=== PATIENT | female | born 1945 | race Caucasian/White ===

== ENCOUNTER 2023-10-10 18:14 | Emergency (ER) | payer MEDICARE, SELFPAY ==
[2023-10-10] VITALS (9 sets, daily range): BP systolic 133–153; BP diastolic 65–79; PULSE 87–94; RESP 18–24; TEMP 36.7; O2SAT 92–97; BMI 26.5
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
[2023-10-10 18:50] LABS: Basophils Absolute Auto 0.03 K/uL (0.00-0.30); Basophils Percent Auto 0.4 % (0.0-3.0); Eosinophils Absolute Auto 0.01 K/uL (0.00-0.50); Eosinophils Percent Auto 0.1 % (0.0-7.0); Hematocrit 39.4 % (33.0-51.0); Immature Granulocytes Abs Auto 0.01 K/uL (0.00-0.30); Immature Granulocytes Pct Auto 0.1 %; Lymphocytes Percent Auto 6.3 % (20-44); Mean Corpuscular HGB Conc 33 gm/dL (32-36); Mean Corpuscular Hemoglobin 30 pg (26-34); Mean Corpuscular Volume 92 fL (80-100); Neutrophils Percent Auto 86.1 % (42.0-72.0); Platelet Count* 230 K/uL (140-440); RDW Coefficient of Variation % 13.1 % (11.5-15.5); Red Blood Count 4.28 m/uL (4.00-5.20); White Blood Count* 7.84 K/uL (4.50-11.00)
[2023-10-10 19:02] LABS: Slide Review Reflex No
--- OUTSIDE RECORDS SUMMARY | 2023-10-10 19:03 | XMS_ITS | Clinical Summary ---
Author Organization [facility] Address [place], [place] [address] Care Team Providers Care Stone Cutter Name Role Phone Devyn Holden MD Primary Care Provider Unavail able Family History Medical History Relation Name Comments Cancer-breast No Family History Social History Tobacco Use Types Packs/Day Years Used Date Smoking Tobacco: Never Assessed Sex and Gender Information Value Date Recorded Sex Assigned at Not on file Gender Identity Not on file Sexual Orientation Not on file Obstetrics History Plan of Treatment Not on file Insurance Payer Benefit Plan / Group Subscriber ID Effective Dates Phone Address Type MEDICARE PART B - HB USE ONLY MEDICARE PART B HB ONLY [id number] 2005-[place] t ATTN: CLAIMS [address] [place] [address] MEDICARE - PB USE ONLY MEDICARE PB ONLY [id number] 2005-Pres t ATTN: CLAIMS [address] [place] [address] BLUE CROSS BLUE CROSS FALSE PASS BLUE HB ONLY [id number] 2012-Present [address] [address] [place] [address] MEDICA MEDICA PASSPORT [id number] Effective fo r all dates [address] [address] [place] [address] Care Teams Stone Cutter Relationship Specialty Start Date End Date Devyn Holden MD PCP - General Family Practice 12/14/11
--- OUTSIDE RECORDS SUMMARY | 2023-10-10 19:03 | XMS_ITS | Clinical Summary ---
Author Organization [facility] Address [address] [place] [address] Care Team Providers Care Is/It Project Manager Name Role Phone Devyn Holden MD Primary Care Provider [phone] Source Comments You are receiving this document as you are listed as the primary care provider,follow-up provider, or the patient has been referred to you for consultation.This is in compliance with the Medicare and[facility] EHR Incentive Program,which states Providers who transition their patient to another setting of careor provider of care or refers their patient to another provider of care shouldprovide summary care record for each transition of care or referral. [employer] Allergies Active Allergy Reactions Criticality Noted Date Comments Sulfa Antibiotics 04/16/2017 Medications Medication Sig Dispensed Refills Start Date End Date Status aspirin 81 MG tablet Take 1 Tablet (81 mg) by mouth daily. Active rizatriptan (MAXALT-SUPERVISOR REINFORCED STEEL PLACING) 10 MG disintegrating tablet Take 1 Tablet (10 mg) by mouth as needed for Headache. at onset of migraine. May repeat in 2 hr if needed up to 30mg in 24 hr & MAX use 5 days/month Active omega-3 fatty acids (MAXEPA,FISHOIL) 1000 MG capsule Take 2 Capsules (2,000 mg) by mouth daily. Active GABAPENTIN OR Active Clobetasol Propionate (OLUX) 0.05 % foam User on affected areas of rash in the scalp once daily as needed 50 g 3 07/16/2020 Active diclofenac (VOLTAREN) 1 % gel Apply 2 g to skin 4 times daily as needed for Other (hand, knee, other joint pain). 100 g 3 07/16/2020 Active amLODIPine (NORVASC) 10 MG tablet Take 1 Tablet (10 mg) by mouth daily. 90 Tablet 3 10/15/2022 Active hydroxychloroquine (PLAQUENIL) 200 MG tabletIndications:cut aneous lupus Take 1 Tablet (200 mg) by mouth two times a day. 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 04/27/2017 History of total knee arthroplasty, right 2017 Raynaud's disease without gangrene 04/27/2017 Connective tissue disease 04/27/2017 Migraine 04/27/2017 Primary osteoarthritis of both hands 04/27/2017 Right hand pain 04/27/2017 Long-term use of hydroxychloroquine 04/27/2017 Immunizations Name Administration Dates Next Due Flu Vac (3+ yrs) 01/26/2013,01/01/2012, 1 Fluzone Qiv Multidose Vial 0 .25 (6-35 Mos) 02/06/2015 Influenza (Fluad) 01/20/2019 Influenza (Flucelvax), Prese rv Free QIV 03/01/2017 Influenza IIV4 (Quadrivalent ) 0.5mL ([id number]) 12/31/2016 Influenza IIV4 (Quadrivalent ) Fluad, 65+ Yrs 01/03/2021,01/28/2020 Influenza, Unspecified Formulation 01/11/2018,,02/06/2015 Moderna Monovalent 12+ 11/03/2021,2020,07/05/2020,2020 PPSV23 (Pneumovax) 03/20/2020 Zoster RZV (Shingrix) 05/26/2021,02/13/2021 Social History Tobacco Use Types Packs/Day Years Used Date Smoking Tobacco: Former Smokeless Tobacco: Never Alcohol Use Standard Drinks/Week Comments Yes 0 (1 standard drink = 0.6 oz pur e alcohol) Sex and Gender Information Value Date Recorded Sex Assigned at Not on file Gender Identity Not on file Sexual Orientation Not on file Last Filed Vital Signs Vital Sign Reading Time Taken Comments Blood Pressure 144/70 07/16/2020 11:28 AM CDT Pulse 73 07/16/2020 11:28 AM CDT Temperature 36.1 ??C (97 ??F) 07/16/2020 11:28 AM CDT Respiratory Rate - - Oxygen Saturation - - Inhaled Oxygen Concentration - - Weight 77.1 kg (170 lb) 07/16/2020 11:28 AM CDT Height - - Body Mass Index - - Plan of Treatment Upcoming Encounters Date Type Department Care Team (Late st Contact Info) Description 10/19/2023 1:45 PM CDT Appointment [facility] [address] [place], [place] [id number] Everardo Luis MD [facility] [place], [place] [id number] Health Maintenance Due Date Last Done Comments Medicare Annual Wellness Visit 1945 COVID-19 Vaccine ( season) 2022 01/28/2022, 11/03/2021, 02/13/2021, Additional history exists Influenza (Season Ended) 2023 022, 01/03/2021, 01/28/2020, Additional history exists DTaP/Tdap/Td (2 - Tdap) 04/09/2032 04/09/2022 Dexa Completed 09/18/2016 Hep C Screening (Preventive Services) Completed 04/27/2017 Zoster/Shingles Completed 05/26/2021, 02/13/2021 Pneumococcal 65+ Yrs Completed 04/09/2022, 03/20/20 20 HepA Aged Out No longer eligi ble based on patient's age to complete this topic HepB Aged Out No longer eligi ble based on patient's age to complete this topic Hib Aged Out No longer eligi ble based on patient's age to complete this topic IPV (Polio) Aged Out No longer eligi ble based on patient's age to complete this topic MCV4 Aged Out No longer eligi ble based on patient's age to complete this topic Procedures Procedure Name Priority Date/Time Associated Diagnosis Comments HEPATITIS C ANTIBODY, WITH REFLEX Routine 04/27/2017 11:44 AM LABEL OPERATOR Connective tissue disease (HRC) DXA BONE DENSITY SPINE/HIP/FOREARM Routine 09/18/2016 2:21 PM CDT from Last 3 Months or Most Recently Relevant to Health Maintenance Results * HCAB - Hepatitis C Virus Sunita with Reflex In-House (04/27/2017 11:44 AM LABEL OPERATOR) Hepatitis C Antibody Nonreactive Nonreactive PN SOFT 04/27/2017 11:4 4 AM LABEL OPERATOR 04/27/2017 4:22 PM LABEL OPERATOR Narrative PN SOFT - 04/27/2017 5:49 PM LABEL OPERATOR Performed at [facility], [facility] [place] [address] CLIA number [id number] Everardo Luis MD LAB[facility] [place] [address] from Last 3 Months or Most Recently Relevant to Health Maintenance Care Teams Is/It Project Manager Relationship Specialty [place] [address] [address] PCP - General Family Practice 11/27/21
--- OUTSIDE RECORDS SUMMARY | 2023-10-10 19:03 | XMS_ITS | Continuity of Care Document ---
Author Organization [facility] Address [address] [place] [address] Phone Care Team Providers Care Transportation Officer Name Role Phone Jono BLANCO, PhD, Chucho Unavailable Unavai lable Allergies, Adverse Reactions, Alerts Substance Reaction Status Criticality Sulfa (Sulfonamide Antibiotics) body swells Active No Information Medications Medication Instructions Dosage Effective Dates (start - stop) Status Comments ASPIR-LOW (unknown strength) Not Available - Active AMLODIPINE BESYLATE (unknown strength) Not Available - Active RIZATRIPTAN (unknown strength) Not Available - Active PLAQUENIL (unknown strength) Not Available - Active Procedures Procedure Date Office/Outpatient Visit,Carlota Hernández 2016 X-Ray Exam Lwr Spine, Min 4 Views Advance Directives Directive Yes / No Effective Date File Name No Information Encounters Encounter Description Practice Location Reason(s) For Visit Diagnoses Date Provider Providers Copied on Encounter [facility], [address], [place], [place], [id number], [place] tel:[phone] [facility] No Information Jono Rankin. [facility], [address], [place], [address], [place]. tel: [phone] Office/Outpat ient Visit,[facility], [address], [place], [place], [id number], [place] tel:[phone] [facility] Pain in leg Jono Rankin. [facility], [address], [place], [address], [place]. tel:[phone] Referring Provider: JOSE Weir [address], [address]. tel:[phone] Family History Family Member Type Diagnosis Age At Onset No Information Payers Payer name Insurance type Covered alliance party ID Sulma pearson(s) [facility] [id number] Medicare [facility] BL [id number] Social History Type Description Quantity Date Captured Comments Sex Female Smoking Status No Information Chief Complaint And Reason For Visit No Information Reason For Referral Reason For Referral No Information History Of Present Illness Encounter Date Complaint History Of Prese nt Illness No Information Functional Status Date Functional Assessmen t No Information Instructions Date Instruction Additional Infor mation Weight Management Education Rela prasad to Overweight Weight management: I nstructed to return to General Practitioner timeframe: 1 Month. Related to Overweight Assessments Type Assessment Date No Information Patient Care Teams Name Effective Dates (start - stop) Status Members No Information
--- OUTSIDE RECORDS SUMMARY | 2023-10-10 19:03 | XMS_ITS | Continuity of Care Document ---
Author Organization [facility] Address [address] [address] [place] [address] Phone Care Team Providers Care Residential Living Assistant Name Role Phone Saulo Carranza MD Unavailable Unavailable Allergies, Adverse Reactions, Alerts Substance Reaction Status Criticality Sulfa (Sulfonamide Antibiotics) swelling Active No Information Medications Medication Instructions Dosage Effective Dates (start - stop) Status Comments Plaquenil 200 mg Tab Take two tablets by mouth daily - Active Norvasc 10 mg Tab Take 1 tablet by mouth daily - Active Multiple Vitamin Essential Tab Use as directed - Active CALCIO LIZANDRO (unknown strength) Take 4 tablets by mouth daily Not Available - Active Maximum Energy Tab Use as directed - A ctive etodolac 400 mg Tab Take two tablets by mouth daily - Active OMEGA 3 (unknown strength) Use as directed Not Available - Active Procedures Procedure Date Colorectal Ca Scrn Not Hi Risk 09 Advance Directives Directive Yes / No Effective Date File Name No Information Encounters Encounter Description Practice Location Reason(s) For Visit Diagnoses Date Provider Providers Copied on Encounter [facility], [address] [address], [place], [id number], [place] tel:[phone] Evita [facility] Colon Cancer ScreeningDiverticul osis Of Colon [address] [facility], [place], [id number] , [place]. tel:[phone] Family History Family Member Type Diagnosis Age At Onset No Information Payers Payer name Insurance type Covered constitution party ID Authoriza tijosy(s) Medicare [facility] [id number] [facility] [id number] Social History Type Description Quantity Date Captured Comments Sex Female Smoking Status No Information Chief Complaint And Reason For Visit No Information Reason For Referral Reason For Referral No Information History Of Present Illness Encounter Date Complaint History Of Prese nt Illness No Information Functional Status Date Functional Assessmen t No Information Instructions Date Instruction Additional Infor mation No Information Assessments Type Assessment Date No Information Patient Care Teams Name Effective Dates (start - stop) Status Members No Information
--- OUTSIDE RECORDS SUMMARY | 2023-10-10 19:03 | XMS_ITS | Continuity of Care Document ---
Author Organization [facility] Address [address] [place] [address] Phone Care Team Providers Care Matcher Operator Name Role Phone Sondra Madden MD Unavailable Unavailable Allergies, Adverse Reactions, Alerts Substance Reaction Status Criticality Sulfa (Sulfonamide Antibiotics) Active No Information Medications Medication Instructions Dosage Effective Dates (start - stop) Status Comments Plaquenil 200 mg tablet take 1 (200MG) by oral route 2 times every day 200 MG - Active Norvasc 10 mg tablet take 1 tablet (10MG) by oral route every day - Active aspirin 81 mg Tab, Delayed Release take 1 tablet (81MG) by oral route every day 81 MG - Active Maxalt-INJECTION MOLDING MACHINE SETTER 10 mg Tab, Rapid Dissolve use as needed - Active Plaquenil 200 mg tablet take 1 (200MG) by oral route 2 times every day 200 MG - No Longer Active Norvasc 10 mg tablet take 1 tablet (10MG) by oral route every day - No Longer Active Procedures Procedure Date Office/Outpatient Visit, Est Routine Venipuncture Specimen Handling Complete Cbc WAuto Diff Wbc Rbc Sed Rate, Nonautomated Assay Of Creatinine CReactive Protein Office/Outpatient Visit, Est Routine Venipuncture Specimen Handling Complete Cbc WAuto Diff Wbc Rbc Sed Rate, Nonautomated Assay Of Creatinine CReactive Protein Office/Outpatient Visit, Est Routine Venipuncture Specimen Handling Complete Cbc WAuto Diff Wbc Rbc Sed Rate, Nonautomated Assay Of Creatinine CReactive Protein Office/Outpatient Visit, Est Routine Venipuncture Specimen Handling CReactive Protein Complete Cbc WAuto Diff Wbc Assay Of Creatinine Results Test Name Date and Time Measure Units Reference Range Abnormal Flag Status Comments Panel Description: ESR Final ESR 11:36:00 28 mm/hr 0-25 H Final Panel Description: CRP Final CRP 11:45:00 0.050 MG/DL 0.000-0.600 Final LOW=Actual Result is BELOW Linearity of Analyzer Panel Description: Creatinine Final Creatinine 11:45:00 0.7 mg/dL 0.5-1.3 Final GFR 11:45:00 88.4 mL/min/1. 73 m2 Final If patient is -Amer ican multiply result by 1.210 Panel Description: CBC Final WBC 11:46:00 4.0 K/uL 3.5-10.8 Final Lymphocyte% 11:46:00 30.2 % 15.1-43.0 Final Mid% 11:46:00 5.1 % 1.0-18.0 Final Gran% 16 11:46:00 64.7 % 45.0-76.0 Final Lymphocyte # 16 11:46:00 1.2 K/uL 0.9-5.2 Final Mid # 16 11:46:00 0.2 K/uL 0.1-2.0 Final Gran # 16 11:46:00 2.6 K/uL 1.4-19.0 Final RBC 11:46:00 4.30 M/uL 3.80-5.20 Final Hemoglobin Oct-27-20 16 11:46:00 13.8 g/dL 11.5-16.0 Final Hematocrit 16 11:46:00 39.7 % 36.0-49.0 Final MCV 11:46:00 92 fL 81-100 Final MCH 11:46:00 32 pg 27-35 Final MCHC 11:46:00 34.9 g/dL 32.5-37.5 Final RDW 11:46:00 13.9 % 11.5-15.4 Final MPV 11:46:00 6.7 fL 6.0-10.4 Final Platelet Count 11:46:00 257 K/uL 130-400 Final Panel Description: URINALYSIS REFLEX Final COLOR 16 04:25:00 YELLOW YELLOW N Final APPEARANCE 16 04:25:00 CLEAR CLEAR N Final SPECIFIC GRAVITY 04:25:00 1.004 1.001-1.035 N Final PH 04:25:00 6.5 5.0-8.0 N Final GLUCOSE 16 04:25:00 NEGATIVE NEGATIVE N Final BILIRUBIN 16 04:25:00 NEGATIVE NEGATIVE N Final KETONES 16 04:25:00 NEGATIVE NEGATIVE N Final OCCULT BLOOD 16 04:25:00 NEGATIVE NEGATIVE N Final PROTEIN 04:25:00 NEGATIVE NEGATIVE N Final NITRITE 04:25:00 NEGATIVE NEGATIVE N Final LEUKOCYTE ESTERASE 04:25:00 NEGATIVE NEGATIVE N Final Advance Directives Directive Yes / No Effective Date File Name No Information Encounters Encounter Description Practice Location Reason(s) For Visit Diagnoses Date Provider Providers Copied on Encounter Office/Outpa tient Visit, [facility] , [address], [place], [address], [place] tel:[phone] [facility] , SLE (chief complaint)Os teoarthritis (chief complaint)Dr beauchamp monitoring (chief complaint) Oth organ or system involv in systemic lupus erythematosu sPrimary generalized (osteo)arthr itisOther assisted (current) drug therapy Maryanne Amaro. [facility] [address], [place], [address], [place]. tel:[phone] Referring Provider: Sondra Beaver, [facility] [address], [place], [address]. tel:[phone] [facility] , [address], [place], [address], [place] tel:[phone] [facility] , No Information 6 Maryanne Amaro. [facility] [address], [place], [address], [place]. tel:[phone] Office/Outpa tient Visit, [facility] , [address], [place], [address], [place] tel:[phone] [facility] , SLE (chief complaint)Os teoarthritis (chief complaint)Dr beauchamp monitoring (chief complaint) Systemic lupus erythematosu sOsteoarthri tis, GeneralizedT herapeutic Drug Monitoring 5 Maryanne Amaro. [facility] [address], [place], [address], [place]. tel:[phone] Referring Provider: Sondra Beaver, [facility] [address], [place], [address]. tel:[phone] Office/Outpa tient Visit, [facility] , [address], [place], [address], [place] tel:[phone] [facility] , SLE (chief complaint)Os teoarthritis (chief complaint)Dr beauchamp monitoring (chief complaint)Tr igger finger (chief complaint) Systemic lupus erythematosu sOsteoarthri tis, GeneralizedT herapeutic Drug Monitoring 0 4 Maryanne Amaro. [facility] [address], [place], [address], [place]. tel:[phone] Referring Provider: Sondra Beaver, [facility] [address], [place], [address]. tel:[phone] Office/Outpa tient Visit, [facility] , [address], [place], [address], [place] tel:[phone] [facility] , SLE (chief complaint)Os teoarthritis (chief complaint)Mo nitor chronic high risk medications (chief complaint) Systemic lupus erythematosu sTrigger finger (acquired)Sy novial cyst of popliteal spaceTherape utic Drug Monitoring 3 Maryanne Amaro. [facility] [address], [place], [address], [place]. tel:[phone] Referring Provider: Sondra Beaver, [facility] [address], [place], [address]. tel:[phone] Family History Family Member Type Diagnosis Age At Onset No Information Payers Payer name Insurance type Covered democrat ID Authoriza tion(s) [facility] Medicare Advantage/[employer] BL [id number] Social History Type Description Quantity Date Captured Comments Alcohol Use Details wine 1 glass daily Caffeine Use Details coffee 4 cups per day Tobacco Use Status Ex-cigarette smoker Smoking Status Former smoker Zulma is and lives with her in [place]. She works at a [employer]. She quit smoking many years ago. She drinks 1-2 alcoholic beverages per month. Smoking Tobacco Use Details Cigarette: No Details Available Cigarette: No Details Available Sex Female Vital Signs Date / Time: Height Weight BMI Pulse Rate Blood Pressure Temperature Respiratory Rate Body Surface Area Head Circumference Head Circ. Percentile Wt./Tao. Percentile BMI percentile Pulse Ox Inhaled Ox 10:24 AM 63.25 in 64.864 kg (143.00 lbs) 25.1 3 kg/m eter (2) 122/72 mm[Hg] 97.20 F Chief Complaint And Reason For Visit From encounter dated '02/07/2016 10:15'. SLE (chief complaint) Osteoarthritis (chief complaint) Drug monitoring (chief complaint) Reason For Referral Reason For Referral No Information History Of Present Illness Encounter Date Complaint History Of Prese nt Illness SLE Osteoarthritis Drug monitoring SLE Osteoarthritis Drug monitoring Functional Status Date Functional Assessmen t No Information Instructions Date Instruction Additional Infor mation No Information Assessments Type Assessment Date assessment Oth organ or system involv in sy [facility] lupus erythematosus assessment Primary generalized (osteo)arthr itis brenda Maya is tolerating her medications well. She denies any side effects from either the hydroxychloroquine or amlodipine. She will continue to be watchful for anything new that she feels may be medication related. She is up to date with eye exams to monitor for toxicity from the hydroxychloroquine. 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 She has not had any new rashes, pleurisy, inflammatory synovitis, edema, fevers, or other systemic symptoms that would suggest her disease is more active. Her exam today looks excellent. I recommended no changes in her current regimen of hydroxychloroquine. She uses amlodipine for her raynauds and will continue this as well. Labs will be drawn today for disease monitoring purposes to include a CBC with differential and platelets, creatinine, urinalysis, ESR, and CRP. brenda Maya has generalize d osteoarthritis that has involved her hands, knees, hips, and back. Her weight loss has helped significantly. She remains active which is also important. She knows that we do not have any disease modifying drugs for her hands. She seems to get along reasonably well. I have not recommended any further treatment today. Patient Care Teams Name Effective Dates (start - stop) Status Members No Information
--- OUTSIDE RECORDS SUMMARY | 2023-10-10 19:03 | XMS_ITS | Continuity of Care Document ---
Author Organization [facility] Address [address] [place] [address] Phone Care Team Providers Care Spout Worker Name Role Phone Aaron BLANCO MD, Mil Unavailable Unavailable Advance Directives Directive Yes / No Effective Date File Name No Information Encounters Encounter Description Practice Location Reason(s) For Visit Diagnoses Date Provider Providers Copied on Encounter [facility], [address], [place], [place], [id number], [place] tel:[phone] No Information 0 Aaron Jaeger. [address], [place], [address], [place]. tel:[phone] Referring Provider: Mil Dempsey, [address] [place], [place], [facility]. tel:[phone] Family History Family Member Type Diagnosis Age At Onset No Information Payers Payer name Insurance type Covered libertarian ID Authoriza tion(s) [employer] CI [id number] Social History Type Description Quantity Date Captured [...]
[2023-10-10 19:07] LABS: Chloride* 103 mmol/L (96-114); Potassium* 3.9 mmol/L (3.6-5.1); Sodium* 138 mmol/L (135-149)
[2023-10-10 19:10] LABS: Anion Gap 8 mEq/L (7-15); Blood Urea Nitrogen* 14 mg/dL (7-30); Carbon Dioxide* 27 mmol/L (20-32); Creatinine* 0.9 mg/dL (0.5-1.5); Est. Creatinine Clearance* 37.85; Estimated Glomerular Filt Rate 66 ml/min
[2023-10-10 19:11] LABS: Calcium* 9.1 mg/dL (8.4-10.6); Glucose* 112 mg/dL (60-115)
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
[2023-10-10] MEDS: ONDANSETRON 2 MG/ML inj 4 MG IVP (20:21)
[2023-10-10] MEDS: fentaNYL 100 MCG/2 ML inj 25 MCG IVP (20:22)
--- NOTE | 2023-10-10 21:08 | ED.NURSE ---
Pt did take Pt necklace, earrings, and bracelet.
--- NOTE | 2023-10-10 21:18 | ED.NURSE ---
Report given to [facility].
--- NOTE | 2023-10-10 21:19 | ED.NURSE ---
No need for second iv per Dr. Gotti. Pt did use bedside commode for urine output, tolerates well. O2/nc per Dr. Gotti for RA sats 91-95%.
== END 2023-10-10 21:20 | disposition short-term general hospital (02) ==
PROVIDERS: Emergency Provider Family Medicine; PCP Family Medicine
DX: M54.2 Cervicalgia (principal); T71.9XXA Asphyxiation due to unspecified cause, initial encounter; V86.59XA Driver of other special all-terrain or other off-road motor vehicle injured in nontraffic accident, initial encounter
CPT/HCPCS: 36415; 70491; 71045; 72125; 73560; 73610; 80048; 82565; 85025; 94761; 96374; 96375; 99285; J2405; J3010; Q9967

== ENCOUNTER 2023-10-10 20:55 | Outpatient (CLI) | payer MEDICARE, SELFPAY ==
--- OUTSIDE RECORDS SUMMARY | 2023-10-16 18:30 | XMS_ITS | Encounter Summary ---
Author Organization [facility] Address [address] [place] [address] Phone Care Team Providers Care Cd Technician Name Role Phone Unavailable Primary Care Provider Unavailabl e Encounter Details Date Type Department Care Team (Late st Contact Info) Description 10/11/2023 Orders Only Unspecified Department [place] Unknown, Provider Social History Tobacco Use Types Packs/Day Years Used Date Smoking Tobacco: Never Assessed Humiliation, Afraid, Rape, and Kick questionnair e Answer Date Recorded Within the last year, have y ou been afraid of your partner or ex-partner? No 10/11/2023 Within the last year, have y ou been humiliated or emotionally abused in other ways by your partner or ex-partner? No Within the last year, have y ou been kicked, hit, slapped, or otherwise physically hurt by your partner or ex-partner? No 10/11/2023 Within the last year, have y ou been raped or forced to have any kind of sexual activity by your partner or ex-partner? No 10/11/2023 Overall Financial Resource Strain (CARDIA) Answe r Date Recorded How hard is it for you to pa y for the very basics like food, housing, medical care, and heating? Not hard at all 10/11/2023 Hunger Vital Sign Answer Date Recorded Within the past 12 months, y ou worried that your food would run out before you got the money to buy more. Never true 10/11/19 24 Within the past 12 months, t he food you bought just didn't last and you didn't have money to get more. Never true 10/11/2023 PRAPARE - Transportation Answer Date Re corded In the past 12 months, has l ack of transportation kept you from medical appointments or from getting medications? No 09/13 In the past 12 months, has l ack of transportation kept you from meetings, work, or from getting things needed for daily living? No 10/11/2023 Housing Stability Answer Date Recorded What is your housing situation today? 3 - I have housing 10/11/2023 Sex and Gender Information Value Date Recorded Sex Assigned at Not on file Gender Identity Not on file Sexual Orientation Not on file documented as of this encounter Plan of Treatment Not on file documented as of this encounter Procedures Procedure Name Priority Date/Time Associated Diagnosis Comments TELEMETRY STRIPS 10/11/2023 8:58 PM CDT documented in this encounter Results * TELEMETRY STRIPS (10/11/2023 8:58 PM CDT) Narrative 10/11/2023 8:58 PM CDT Ordered by an unspecified provider. Provider Unknown RAD ECHO documented in this encounter Visit Diagnoses Not on filedocumented in this encounter
--- OUTSIDE RECORDS SUMMARY | 2023-10-16 18:30 | XMS_ITS | Clinical Summary ---
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 discussed
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
--- OUTSIDE RECORDS SUMMARY | 2023-10-16 18:30 | XMS_ITS | Encounter Summary ---
Author Organization [facility] Address [address] [place] [id number] Phone Care Team Providers Care Security Systems Technician Name Role Phone Unavailable Primary Care Provider Unavailabl e Encounter Details Date Type Department Care Team (Latest Contact Info) Description 10/10/2023 Travel Social History Tobacco Use Types Packs/Day Years [...] on file documented as of this encounter Visit Diagnoses Not on filedocumented in this encounter
--- OUTSIDE RECORDS SUMMARY | 2023-10-16 18:30 | XMS_ITS | Encounter Summary ---
Author Organization [facility] Address [address] [place] [phone] Phone Care Team Providers Care Occupational Health Technician Name Role Phone Unavailable Primary Care Provider Unavailabl e Reason for Referral * Consult/Test/Treat (Routine) - New Request Specialty Diagnoses / Procedures Referred By Contac t Referred To Contact Speech Pathology / NEUROLOGY Diagnoses Blunt trauma of neck, subsequent encounter Pneumomediastinum (CMS/HHS) Hoang Yancey Jr., MD [address] [place] [id number] Referral ID Status Reason Start Date Expiration Date V isits Requested Visits Authorized [id number] New Request 10/13/2023 10/11/2024 1 1 Encounter Details Date Type Department Care Team (Late st Contact Info) Description 10/12/2023 Orders Only [facility] [address] [address] Mariajose Camarillo MD [address] [place] [id number] Blunt trauma of neck, subsequent encounter (Primary Dx); Pneumomediastinum (CMS/HHS) Social History Tobacco Use Types Packs/Day Years [...] as of this encounter Plan of Treatment Scheduled Orders Name Type Priority Associated Diagnoses Orde r Schedule XR MODIFIED BARIUM SWALLOW Imaging Routine Blunt trauma of neck, subsequent encounter Pneumomediastinum ([facility]) Expected: 10/13/2023, Expires: 12/12/2024 Scheduled Referrals Name Type Priority Associated Diagnoses Orde r Schedule REFERRAL TO SPEECH LANGUAGE PATHOLOGY Referral Routine Blunt trauma of neck, subsequent encounter Pneumomediastinum ([facility]) Ordered: 10/13/2023 documented as of this encounter Visit Diagnoses Diagnosis Blunt trauma of neck, subsequent encounter- Primary Pneumomediastinum ([facility]) Interstitial emphysema documented in this encounter
--- OUTSIDE RECORDS SUMMARY | 2023-10-16 18:30 | XMS_ITS | Encounter Summary ---
Author Organization [facility] Address [address] [place] [address] Phone Care Team Providers Care Sewing Department Supervisor Name Role Phone Unavailable Primary Care Provider Unavailabl e Encounter Details Date Type Department Care Team (Late st Contact Info) Description 10/12/2023 Orders Only Unspecified Department [place] Unknown, [...] Priority Date/Time Associated Diagnosis Comments TELEMETRY STRIPS 10/12/2023 11:1 3 AM CDT documented in this encounter Results * TELEMETRY STRIPS (10/12/2023 11:13 AM CDT) Narrative 10/12/2023 11:13 AM CDT Ordered by an unspecified provider. Provider Unknown RAD ECHO documented in this encounter Visit Diagnoses Not on filedocumented in this encounter
--- OUTSIDE RECORDS SUMMARY | 2023-10-16 18:30 | XMS_ITS | Encounter Summary ---
Author Organization [facility] Address [address] [place] [address] Phone Care Team Providers Care Field Irrigation Worker Name Role Phone Unavailable Primary Care Provider Unavailabl e Encounter Details Date Type Department Care Team (Late st Contact Info) Description 10/13/2023 Orders Only Unspecified Department [place] Unknown, [...] Priority Date/Time Associated Diagnosis Comments TELEMETRY STRIPS 10/13/2023 2:47 AM CDT documented in this encounter Results * TELEMETRY STRIPS (10/13/2023 2:47 AM CDT) Narrative 10/13/2023 2:47 AM CDT Ordered by an unspecified provider. Provider Unknown RAD ECHO documented in this encounter Visit Diagnoses Not on filedocumented in this encounter
--- OUTSIDE RECORDS SUMMARY | 2023-10-16 18:30 | XMS_ITS | Encounter Summary ---
Author Organization [facility] Address [address] [place] [address] Phone Care Team Providers Care Crop Farm Workers Name Role Phone Unavailable Primary Care Provider [...] Date/Time Associated Diagnosis Comments TELEMETRY STRIPS 10/12/2023 9:44 PM CDT documented in this encounter Results * TELEMETRY STRIPS (10/12/2023 9:44 PM CDT) Narrative 10/12/2023 9:44 PM CDT Ordered by an unspecified provider. Provider Unknown RAD ECHO documented in this encounter Visit Diagnoses Not on filedocumented in this encounter
--- OUTSIDE RECORDS SUMMARY | 2023-10-16 18:30 | XMS_ITS | Encounter Summary ---
Author Organization [facility] Address [address] [place] [address] Phone Care Team Providers Care Fire Fighter [employer] Name Role Phone Unavailable Primary Care Provider Unavailabl e Encounter Details Date Type Department Care Team (Late st Contact Info) Description 10/14/2023 [facility] [phone] Aramis Vanessa, DO [address] [address] Social History Tobacco Use Types Packs/Day Years [...]
--- OUTSIDE RECORDS SUMMARY | 2023-10-16 18:30 | XMS_ITS | Encounter Summary ---
Author Organization [facility] Address [address] [place] [address] Phone Care Team Providers Care Couples Therapist Name Role Phone Unavailable Primary Care Provider [...] Date/Time Associated Diagnosis Comments TELEMETRY STRIPS 10/12/2023 3:47 AM CDT documented in this encounter Results * TELEMETRY STRIPS (10/12/2023 3:47 AM CDT) Narrative 10/12/2023 3:47 AM CDT Ordered by an unspecified provider. Provider Unknown RAD ECHO documented in this encounter Visit Diagnoses Not on filedocumented in this encounter
--- OUTSIDE RECORDS SUMMARY | 2023-10-16 18:30 | XMS_ITS | Encounter Summary ---
Author Organization [facility] Address [address] [place] [address] Phone Care Team Providers Care Paint Pourer Name Role Phone Unavailable Primary Care Provider Unavailabl e Encounter Details Date Type Department Care Team (Late st Contact Info) Description 10/12/2023 Orders Only [facility] Film Room [facility] Radiology Department PEGGY [address] [id number] Provider, [place] [address] Referral of patient (Primary Dx) Social History Tobacco Use Types Packs/Day Years [...] on file documented as of this encounter Results * XR CHEST OUTSIDE FILMS (10/10/2023 8:17 PM CDT) Narrative User, [id number] - 10/12/2023 6:28 AM CDT Outside Film Only Outside Provider RAD OUTSIDE FILMS * XR LOWER EXTREMITY OUTSIDE FILMS (10/10/2023 7:38 PM CDT) Narrative User, [id number] - 10/12/2023 6:28 AM CDT Outside Film Only Outside Provider RAD OUTSIDE FILMS * XR LOWER EXTREMITY OUTSIDE FILMS (10/10/2023 7:33 PM CDT) Narrative User, [id number] - 10/12/2023 6:27 AM CDT Outside Film Only Outside Provider RAD OUTSIDE FILMS * CT SPINE OUTSIDE FILMS (10/10/2023 7:10 PM CDT) Narrative User, [id number] - 10/12/2023 6:29 AM CDT Outside Film Only Outside Provider RAD OUTSIDE FILMS * CT SPINE OUTSIDE FILMS (10/10/2023 7:10 PM CDT) Narrative User, [id number] - 10/12/2023 6:29 AM CDT Outside Film Only Outside Provider RAD OUTSIDE FILMS documented in this encounter Visit Diagnoses Diagnosis Referral of patient- Primary Referral of patient without examination or treatment documented in this encounter
--- OUTSIDE RECORDS SUMMARY | 2023-10-16 18:31 | XMS_ITS | Clinical Summary ---
Author Organization [facility] Address [place], [place] [address] Care Team Providers Care Freelance Displayer Name Role Phone Devyn Holden MD Primary [...] History Plan of Treatment Not on file Care Teams Freelance Displayer Relationship Specialty Start Date End Date Devyn Holden MD PCP - General Family Practice 12/14/11
--- OUTSIDE RECORDS SUMMARY | 2023-10-16 18:31 | XMS_ITS | Clinical Summary ---
Author Organization [facility] Address [address], [place] [address] Care Team Providers Care Report Clerk Name Role Phone Devyn Holden MD Primary Care Provider [phone] Source Comments You are receiving this document as you are listed as the primary care provider,follow-up provider, or the patient has been referred to you for consultation.This is in compliance with the Medicare and[facility] EHR Incentive Program,which states Providers who transition their patient to another setting of careor provider of care or refers their patient to another provider of care shouldprovide summary care record for each transition of care or referral. Evolver Allergies Active Allergy Reactions Criticality Noted Date Comments Sulfa Antibiotics 04/16/2017 Medications Medication Sig Dispensed Refills Start Date End Date Status aspirin 81 MG tablet Take 1 Tablet (81 mg) by mouth daily. Active rizatriptan (MAXALT-LD TEACHER) 10 MG disintegrating tablet Take 1 Tablet [...] QIV 03/01/2017 Influenza IIV4 (Quadrivalent ) 0.5mL (54982) 12/31/2016 Influenza IIV4 (Quadrivalent ) Fluad, 65+ [...] Info) Description 10/19/2023 1:45 PM CDT Appointment [facility] [address] [place], [place] [id number] Everardo Luis MD [facility] [place], [place] [id number] Health Maintenance Due Date Last Done Comments [...] ANTIBODY, WITH REFLEX Routine 04/27/2017 11:44 AM [facility] Connective tissue disease (HRC) DXA BONE DENSITY SPINE/HIP/FOREARM Routine 09/18/2016 2:21 PM CDT from Last 3 Months or Most Recently Relevant to Health Maintenance Results * HCAB - Hepatitis C Virus Sunita with Reflex In-House (04/27/2017 11:44 AM [facility]) Hepatitis C Antibody Nonreactive Nonreactive PN SOFT 04/27/2017 11:4 4 AM [facility] 04/27/2017 4:22 PM [facility] Narrative PN SOFT - 04/27/2017 5:49 PM [facility] Performed at [facility] [place] [address] CLIA number [id number] Everardo Luis MD [facility] [address] [place] [address] from Last 3 Months or Most Recently Relevant to Health Maintenance Care Teams Report Clerk Relationship Specialty [place] [address] [id number] PCP - General Family Practice 11/27/21
--- OUTSIDE RECORDS SUMMARY | 2023-10-16 18:31 | XMS_ITS | Encounter Summary ---
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 14.5 % [facility] Plt 183 150 - 400 k/cmm [facility] MPV 10.4 6.5 - 12.5 fL [facility] Blood 10/14/2023 7:13 AM CDT 10/14/2023 7:33 AM CDT Martin Moura MD LABORATORY Performing Organization Address [facility] Co de Phone Number [facility] [address] [address] * (ABNORMAL) PANEL BASIC METABOLIC (BMP) (10/14/2023 7:13 AM CDT) CO2 24 22 - 30 mmol/L [facility] Glucose 117(H) 70 - 100 mg/dL [facility] BUN 8 8 - 23 mg/dL [facility] Creatinine 0.55 0.50 - 1.00 mg/dL [facility] Calcium 8.9 8.8 - 10.2 mg/dL [facility] Sodium 141 135 - 148 mmol/L [facility] Potassium 3.6 3.5 - 5.3 mmol/L [facility] Chloride 106 92 - 108 mmol/L [facility] AnGap 11 8 - 16 mmol/L [facility] eGFR (2020 CKD-EPI) 95 >=60 ml/min/1.7 3m2 [facility] Comment: The estimated glomerular filtration rate (eGFR) was calculated using the CKD-EPI 2020 creatinine equation, which does not include race as a factor. This equation is validated in individuals 18 years of age and older, and eGFR is normalized to a body surface area of 1.73m^2. Blood 10/14/2023 7:13 AM CDT 10/14/2023 7:33 AM CDT Martin Moura MD LABORATORY [facility] [address] [address] * PHOSPHORUS (10/14/2023 7:11 AM CDT) Phosphorus 3.6 2.5 - 4.5 mg/dL [facility] Blood 10/14/2023 7:11 AM CDT 10/14/2023 12:48 PM CDT Martin Moura MD LABORATORY Performing Organization Address City/[facility] Co de Phone Number [facility] [address] [address] * (ABNORMAL) POC GLUCOSE (10/14/2023 6:05 AM CDT) POC Glucose 112(H) 70 - 100 mg/dL [facility] Blood 10/14/2023 6:05 AM CDT Gautam Cook MD LABORATORY [facility] [address] [place] [address], * (ABNORMAL) POC GLUCOSE (10/14/2023 12:06 AM CDT) POC Glucose 136(H) 70 - 100 mg/dL [facility] Blood 10/14/2023 12:0 6 AM CDT Gautam Cook MD LABORATORY [facility] [address] [place] [address], * (ABNORMAL) POC GLUCOSE (10/13/2023 11:56 AM CDT) POC Glucose 120(H) 70 - 100 mg/dL [facility] Blood 10/13/2023 11:5 6 AM CDT Gautam Cook MD LABORATORY Performing Organization Address [facility] Co de Phone Number [facility] [place] [address], [place] * (ABNORMAL) PHOSPHORUS (10/13/2023 6:39 AM CDT) Phosphorus 2.2(L) 2.5 - 4.5 mg/dL [facility] Blood 10/13/2023 6:39 AM CDT 10/13/2023 6:55 AM CDT Vasu Argueta APRN, CNP LABORATORY Performing Organization Address City/[facility]/ZIP Co de Phone Number [facility] [address] [address] * MAGNESIUM (10/13/2023 6:39 AM CDT) Magnesium 1.9 1.6 - 2.4 mg/dL [facility] Blood 10/13/2023 6:39 AM CDT 10/13/2023 6:55 AM CDT Vasu Argueta APRN, CNP LABORATORY Performing Organization Address City/[facility]/ZIP Co de Phone Number [facility] [address] [address] * (ABNORMAL) PANEL BASIC METABOLIC (BMP) (10/13/2023 6:39 AM CDT) Sodium 143 135 - 148 mmol/L [facility] Potassium 3.2(L) 3.5 - 5.3 mmol/L [facility] Chloride 107 92 - 108 mmol/L [facility] CO2 25 22 - 30 mmol/L [facility] AnGap 11 8 - 16 mmol/L [facility] Glucose 110(H) 70 - 100 mg/dL [facility] BUN 12 8 - 23 mg/dL [facility] Creatinine 0.51 0.50 - 1.00 mg/dL [facility] Calcium 8.6(L) 8.8 - 10.2 mg/dL [facility] eGFR (2020 CKD-EPI) 97 >=60 ml/min/1.7 3m2 [facility] Comment: The estimated glomerular filtration rate (eGFR) was calculated using the CKD-EPI 2020 creatinine equation, which does not include race as a factor. This equation is validated in individuals 18 years of age and older, and eGFR is normalized to a body surface area of 1.73m^2. Blood 10/13/2023 6:39 AM CDT 10/13/2023 6:55 AM CDT Vasu Argueta APRN, CNP LABORATORY [facility] [address] [address] * (ABNORMAL) CBC WITH PLATELET (10/13/2023 6:39 AM CDT) WBC 4.32 4.00 - 10.00 k/cmm [facility] RBC 3.64(L) 3.90 - 5.20 m/cmm [facility] Hgb 10.9(L) 11.5 - 15.7 g/dL [facility] Hematocrit 33.4(L) 34.0 - 45.0 % [facility] MCV 91.8 80.0 - 100.0 fL [facility] MCH 29.9 25.0 - 32.0 pg [facility] MCHC 32.6 31.0 - 36.0 g/dL [facility] RDW 13.2 11.5 - 14.5 % [facility] Plt 164 150 - 400 k/cmm [facility] MPV 10.5 6.5 - 12.5 fL [facility] Blood 10/13/2023 6:39 AM CDT 10/13/2023 6:55 AM CDT Vasu Argueta APRN, CNP LABORATORY Performing Organization Address City/[facility]/ZIP Co de Phone Number [facility] [place] [phone] * POC GLUCOSE (10/12/2023 5:56 PM CDT) POC Glucose 94 70 - 100 mg/dL [facility] Blood 10/12/2023 5:56 PM CDT Gautam Cook MD LABORATORY Performing Organization Address City/[facility]/ZIP Co de Phone Number [facility] [place] [phone], [place] * POC GLUCOSE (10/12/2023 12:08 PM CDT) POC Glucose 76 70 - 100 mg/dL [facility] Blood 10/12/2023 12:0 8 PM CDT Gautam Cook MD LABORATORY Performing Organization Address City/[facility]/ZIP Co de Phone Number [facility] [place] [phone], [place] * ICU PHOSPHORUS (10/12/2023 6:25 AM CDT) Phosphorus 2.9 2.5 - 4.5 mg/dL [facility] Blood 10/12/2023 6:25 AM CDT 10/12/2023 6:33 AM CDT Lucian Matthews MD LABORATORY [facility] [address] [address] * ICU MAGNESIUM (10/12/2023 6:25 AM CDT) [facility] Magnesium 2.0 1.6 - 2.4 mg/dL [facility] Blood 10/12/2023 6:25 AM CDT 10/12/2023 6:33 AM CDT Lucian Matthews MD LABORATORY Performing Organization Address City/[facility]/ZIP Co de Phone Number [facility] [address] [address] * (ABNORMAL) ICU PANEL BASIC METABOLIC (BMP) (10/12/2023 6:25 AM CDT) [facility] CO2 22 22 - 30 mmol/L [facility] Glucose 88 70 - 100 mg/dL [facility] BUN 14 8 - 23 mg/dL [facility] Creatinine 0.62 0.50 - 1.00 mg/dL [facility] Calcium 8.4(L) 8.8 - 10.2 mg/dL [facility] Sodium 140 135 - 148 mmol/L [facility] Potassium 3.5 3.5 - 5.3 mmol/L [facility] Chloride 105 92 - 108 mmol/L [facility] eGFR (2020 CKD-EPI) 92 >=60 ml/min/1.7 3m2 [facility] Comment: The estimated glomerular filtration rate (eGFR) was calculated using the CKD-EPI 2020 creatinine equation, which does not include race as a factor. This equation is validated in individuals 18 years of age and older, and eGFR is normalized to a body surface area of 1.73m^2. AnGap 13 8 - 16 mmol/L [facility] Blood 10/12/2023 6:25 AM CDT 10/12/2023 6:33 AM CDT Lucian Matthews MD LABORATORY [facility] [address] [address] * (ABNORMAL) ICU CBC WITH PLATELET (10/12/2023 6:25 AM CDT) [facility] WBC 6.19 4.00 - 10.00 k/cmm [facility] RBC 3.64(L) 3.90 - 5.20 m/cmm [facility] Hgb 11.4(L) 11.5 - 15.7 g/dL [facility] Hematocrit 33.7(L) 34.0 - 45.0 % [facility] MCV 92.6 80.0 - 100.0 fL [facility] MCH 31.3 25.0 - 32.0 pg [facility] MCHC 33.8 31.0 - 36.0 g/dL [facility] RDW 13.2 11.5 - 14.5 % [facility] Plt 170 150 - 400 k/cmm [facility] MPV 10.1 6.5 - 12.5 fL [facility] Blood 10/12/2023 6:25 AM CDT 10/12/2023 6:34 AM CDT Lucian Matthews MD LABORATORY Performing Organization Address [facility] Co de Phone Number [facility] [place] [address] * POC GLUCOSE (10/12/2023 6:18 AM CDT) POC Glucose 84 70 - 100 mg/dL [facility] Blood 10/12/2023 6:18 AM CDT Gautam Cook MD LABORATORY Performing Organization Address City/[facility] Co de Phone Number [facility] [address] [place], [place] [phone], [place] * POC GLUCOSE (10/12/2023 1:11 AM CDT) POC Glucose 86 70 - 100 mg/dL [facility] Blood 10/12/2023 1:11 AM CDT Gautam Cook MD LABORATORY Performing Organization Address City[facility] Co de Phone Number [facility] [address] [place], [place] [phone], [place] * XR ABDOMEN 1 VIEW* (10/11/2023 6:51 PM CDT) Anatomical Region Laterality Modality Abdomen Computed Radiogr aphy 10/11/2023 7:00 PM CDT Impressions 10/11/2023 7:01 PM CDT IMPRESSION: Feeding tube tip projects over the distal stomach. Reading Radiologist: Vasu Green Narrative 10/11/2023 7:01 PM CDT Indication: Feeding Tube placement check ?? Comparison: CT chest 10/11/2023 FINDINGS: Feeding tube tip projects over the distal stomach. Moderate stool burden. No bowel distention to suggest obstruction. 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 Cholelithiasis. Procedure Note Vasu Green MD - 10/11/2023 Indication: Feeding Tube placement check Comparison: CT chest 10/11/2023 FINDINGS: Feeding tube tip projects over the distal stomach. Moderatestool burden. No bowel distention to suggest obstruction. Multileveldegenerative disc disease of the visualized spine. Cholelithiasis. IMPRESSION IMPRESSION: Feeding tube tip projects over the distal stomach. Reading Radiologist: Vasu Green Nely Sandoval APRN, SUPERVISOR PARTICLEBOARD RAD XRAY * POC GLUCOSE (10/11/2023 5:29 PM CDT) POC Glucose 79 70 - 100 mg/dL [facility] Blood 10/11/2023 5:29 PM CDT Gautam Cook MD LABORATORY [facility] [address] [place] [address], [place] * POC GLUCOSE (10/11/2023 11:31 AM CDT) POC Glucose 93 70 - 100 mg/dL [facility] Blood 10/11/2023 11:3 1 AM CDT Gautam Cook MD LABORATORY [facility] [address] [place] [address], [place] * XR ANKLE RIGHT 3 V AP/OBL/LAT* [...] evaluation. Reading Radiologist: Vasu Green Nely Sandoval CARD FOLDER, SUPERVISOR PARTICLEBOARD RAD XRAY * XR KNEE LEFT 3 VIEWS* (10/11/2023 9:36 AM CDT) Anatomical Region Laterality Modality Lower Extremity Computed Radiogr aphy 10/11/2023 9:44 AM CDT Impressions 10/11/2023 9:45 AM CDT IMPRESSION: 1. No acute fracture is identified. 2. Osteoarthritis. Reading Radiologist: Vasu Green Narrative 10/11/2023 9:45 AM CDT Indication: s/p USP. knee pain with ROM ?? Comparison: None FINDINGS: No acute fracture is identified. 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 Small knee joint effusion. Prominent bone spur along the superior aspect of the patella, which may be due to remote trauma. Procedure Note Vasu Green MD - 10/11/2023 Indication: s/p USP. knee pain with ROM Comparison: None FINDINGS: No acute fracture is identified. Tricompartmentalosteoarthritis, most pronounced in the medial compartment where there ismoderate osteoarthritis. Small knee joint effusion. Prominent bone spuralong the superior aspect of the patella, which may be due to remotetrauma. IMPRESSION IMPRESSION: 1. No acute fracture is identified. 2. Osteoarthritis. Reading Radiologist: Vasu Green Nely Sandoval APRN, SUPERVISOR PARTICLEBOARD RAD XRAY * CT CHEST NO IV [...] Reading Resident: Zurdo Monsivais Nely Sandoval APRN, SUPERVISOR PARTICLEBOARD RAD CT B [place] * (ABNORMAL) POC GLUCOSE (10/11/2023 5:42 AM CDT) POC Glucose 113(H) 70 - 100 mg/dL [facility] Blood 10/11/2023 5:42 AM CDT Gautam Cook MD LABORATORY [facility] [address] [place] [address], * (ABNORMAL) ICU PANEL BASIC METABOLIC (BMP) (10/11/2023 5:20 AM CDT) Pathologist [facility] Sodium 139 135 - 148 mmol/L [facility] Potassium 3.7 3.5 - 5.3 mmol/L [facility] Chloride 104 92 - 108 mmol/L [facility] CO2 23 22 - 30 mmol/L [facility] AnGap 12 8 - 16 mmol/L [facility] Glucose 118(H) 70 - 100 mg/dL [facility] BUN 12 8 - 23 mg/dL [facility] Creatinine 0.81 0.50 - 1.00 mg/dL [facility] Calcium 8.4(L) 8.8 - 10.2 mg/dL [facility] eGFR (2020 CKD-EPI) 75 >=60 ml/min/1.7 3m2 [facility] Comment: The estimated glomerular filtration rate (eGFR) was calculated using the CKD-EPI 2020 creatinine equation, which does not include race as a factor. This equation is validated in individuals 18 years of age and older, and eGFR is normalized to a body surface area of 1.73m^2. Blood 10/11/2023 5:20 AM CDT 10/11/2023 5:36 AM CDT Lucian Matthews MD LABORATORY Performing Organization Address City/[facility]/ZIP Co de Phone Number [facility] [address] [address] * (ABNORMAL) ICU CBC WITH PLATELET (10/11/2023 5:20 AM CDT) WBC 4.56 4.00 - 10.00 k/cmm [facility] RBC 3.71(L) 3.90 - 5.20 m/cmm [facility] Hgb 11.7 11.5 - 15.7 g/dL [facility] Hematocrit 34.8 34.0 - 45.0 % [facility] MCV 93.8 80.0 - 100.0 fL [facility] MCH 31.5 25.0 - 32.0 pg [facility] MCHC 33.6 31.0 - 36.0 g/dL [facility] RDW 13.4 11.5 - 14.5 % [facility] Plt 201 150 - 400 k/cmm [facility] MPV 10.3 6.5 - 12.5 fL [facility] Blood 10/11/2023 5:20 AM CDT 10/11/2023 5:36 AM CDT Lucian Matthews MD LABORATORY [facility] [address] [address] * MRSA SURVEILLANCE SCREEN (10/11/2023 4:05 AM CDT) Final Report No MRSA isolated. [facility] Swab NASAL STRUCTURE / Unknown 10/11/2023 4:05 AM CDT 10/11/2023 7:23 AM CDT Gautam Cook MD LAB MICROBIOLOGY [facility] [address] [place] [id number] * XR PELVIS AP* (10/10/2023 11:38 PM [...] Radiologist: Raad Barrientos Resident: Shannon Martin Gautam Coko MD RAD XRAY * CT HEAD NO IV CONTRAST (10/10/2023 11:37 PM CDT) Anatomical Region Laterality Modality Skull Computed Tomogra phy 10/10/2023 11:2 2 PM CDT Addenda Addendum by Duncan Schumacher MD on 10/11/2023 8:28 AM CDT There is focal discontinuity of the posterior right hyoid bone horn (best seen on series [id number], image #28), likely representing fracture. Additionally, there may be subtle widening of the right cricoarytenoid joint (series [id number], image 22). Also, irregularities of the posterior [...] the head to a level near the [place]. ??3D reconstructions and multiplanar 2D image reformations were performed and reviewed by the Radiologist using the [employer] workstation, and these images were archived in [...] into thehead to a level near the [place]. 3D reconstructions andmultiplanar 2D image reformations were performed and reviewed by theRadiologist using the [employer] workstation, and these images were archivedin the [...] Radiologist: Raad Barrientos Reading Resident: Shannon Martin 10/11/2023 2:15 AM CDT [...] hyoid bone horn (best seen on series [id number], image #28), likely representing fracture. Additionally, there may be subtle widening of the right cricoarytenoid joint (series [id number], image 22). Also, irregularities of the posterior [...] the head to a level near the [place]. ??3D reconstructions and multiplanar 2D image reformations were performed and reviewed by the Radiologist using the [employer] workstation, and these images were archived in [...] into thehead to a level near the [place]. 3D reconstructions andmultiplanar 2D image reformations were performed and reviewed by theRadiologist using the [employer] workstation, and these images were archivedin the [...] Radiologist: Raad Barrientos Resident: Shannon Martin 10/11/2023 2:20 AM CDT Technique: XR CHEST [...] MD RAD XRAY * EXTRA TUBE - SST (10/10/2023 10:21 PM CDT) SST TUBE Stored [facility] Comment:SST tubes (Serum Sep arator) are stored in the lab for 3 days from the collection date. Blood 10/10/2023 10:2 1 PM CDT 10/10/2023 10:32 PM CDT Gautam Cook MD LABORATORY Performing Organization Address [facility] Co de Phone Number [facility] [address] [address] * EXTRA TUBE - LIGHT GREEN (10/10/2023 10:21 PM CDT) LIGHT GREEN TUBE Stored [facility] Comment:Green tubes ([place] Heparin) are stored in the lab for 3 days from the collection date. Blood 10/10/2023 10:2 1 PM CDT 10/10/2023 10:32 PM CDT Gautam Cook MD LABORATORY Performing Organization Address [facility] de Phone Number [address] [address] * PROTHROMBIN (PT) & INR (10/10/2023 10:21 PM CDT) PT 12.3 9.0 - 12.5 sec [facility] INR 1.1 0.8 - 1.1 [facility] Comment: Warfarin Therapeutic Range: Standard Intensity: 2.0 - 3.0 High Intensity: 2.5 - 3.5 Blood 10/10/2023 10:2 1 PM CDT 10/10/2023 10:39 PM CDT Gautam Cook MD LABORATORY Performing Organization Address [facility] Co de Phone Number [facility] [address] [address] * PRECAUTIONARY TUBE (10/10/2023 10:21 PM CDT) Prec Tube Precautionary Blood Bank Specimen Received. [facility] Blood 10/10/2023 10:2 1 PM CDT 10/10/2023 10:57 PM CDT Gautam Cook MD LAB TRANSFUSION SE RVICES Performing Organization Address [facility] Co de Phone Number [facility] [address] [address] * (ABNORMAL) CBC WITH PLTS/AUTO DIFF (10/10/2023 10:21 PM CDT) WBC 9.42 4.00 - 10.00 k/cmm [facility] RBC 4.04 3.90 - 5.20 m/cmm [facility] Hgb 12.3 11.5 - 15.7 g/dL [facility] Hematocrit 37.3 34.0 - 45.0 % [facility] MCV 92.3 80.0 - 100.0 fL [facility] MCH 30.4 25.0 - 32.0 pg [facility] MCHC 33.0 31.0 - 36.0 g/dL [facility] RDW 13.2 11.5 - 14.5 % [facility] Plt 224 150 - 400 k/cmm [facility] MPV 10.0 6.5 - 12.5 fL [facility] Automated Abs Neutrophil 8.05(H) 1.70 - 6.50 k/cmm [facility] Comment:Preliminary ANC, Fin al Result to Follow Abs Immature Granulocyte 0.06 0.00 - 0.09 k/cmm [facility] Comment:The Immature Granulo cyte Absolute count contains metamyelocytes and myelocytes. Abs Neutrophil 8.05(H) 1.70 - 6.50 k/cmm [facility] Abs Lymphocyte 0.55(L) 0.80 - 4.00 k/cmm [facility] Abs Monocyte 0.74 0.20 - 1.00 k/cmm [facility] Abs Eosinophil 0.00 0.00 - 0.60 k/cmm [facility] Abs Basophil 0.02 0.00 - 0.20 k/cmm [facility] Blood 10/10/2023 10:2 1 PM CDT 10/10/2023 10:39 PM CDT Gautam Cook MD LABORATORY [facility] [address] [address] * (ABNORMAL) ED CHEMISTRY LABS(NA,K,CL,CO2,GLU,CREAT,CA-IONIZED,ANION GAP) (10/10/2023 10:21 PM CDT) Sodium 140 135 - 148 mmol/L [facility] Chloride 102 92 - 108 mmol/L [facility] AnGap 14 8 - 16 mmol/L [facility] Glucose 125(H) 70 - 100 mg/dL [facility] ICA, Actual 4.54 4.40 - 5.20 mg/dL [facility] ICA, pH Corrected 4.67 4.40 - 5.20 mg/dL [facility] Creatinine 0.92 0.50 - 1.00 mg/dL [facility] BICARB 24 22 - 26 mEq/L [facility] eGFR (2020 CKD-EPI) 65 >=60 ml/min/1.7 3m2 [facility] Comment: The estimated glomerular filtration rate (eGFR) was calculated using the CKD-EPI 2020 creatinine equation, which does not include race as a factor. This equation is validated in individuals 18 years of age and older, and eGFR is normalized to a body surface area of 1.73m^2. Potassium 3.6 3.5 - 5.3 mmol/L [facility] Blood 10/10/2023 10:2 1 PM CDT 10/10/2023 10:33 PM CDT Gautam Cook MD LABORATORY [facility] [address] [address] documented in this encounter Visit Diagnoses Diagnosis Blunt trauma of neck, subsequent encounter- Primary Blunt trauma of neck, subsequent encounter Blunt trauma of neck, initial encounter Pneumomediastinum (CMS/HHS) Interstitial emphysema Insomnia, unspecified type Pneumomediastinum (CMS/HHS) Interstitial emphysema Blunt trauma of neck, initial encounter documented in this encounter Admitting Diagnoses Diagnosis Pneumomediastinum (CMS/HHS) Interstitial emphysema Blunt trauma of neck, initial encounter Blunt trauma of neck, subsequent encounter documented in this encounter Administered Medications Active Administered Medications - up to 3 most recent administrations Medication Order MAR Action Action Date Dose Rate Site acetaminophen (TYLENOL) 160 mg/ 5mL oral solution 650 mg 650 mg, Feeding Tube, Q4H PRN, Starting on Thu10/13/23 at 1215, Until Discontinued, Mild Pain (Use First) Given 10/16/2023 12:00 AM CDT 650 mg Given 10/15/2023 5:59 PM CDT 650 mg Given 10/15/2023 12:58 PM CDT 650 mg amLODIPine (NORVASC) tablet 5 mg 5 mg, Feeding Tube, DAILY, First dose on Thu10/14/23 at 0800, Until Discontinued Given 10/16/2023 8:12 AM CDT 5 mg Given 10/15/2023 7:57 AM CDT 5 mg Given 10/14/2023 8:18 AM CDT 5 mg ampicillin-sulbactam (UNASYN) 3 g in NaCl 0.9% 100 mL IVPB 3 g, Indication (Select One): Prophylaxis - Medical, Intravenous, Q6H, 28 doses, First dose on Thu10/11/23 at 0625, Last dose on Thu10/18/23 at 0000 New Bag 10/16/2023 12:08 PM CDT 3 g 200 mL/hr New Bag 10/16/2023 6:20 AM CDT 3 g 200 mL/hr New Bag 10/15/2023 11:51 PM CDT 3 g 200 mL/hr bisacodyl (DULCOLAX) suppository 10 mg 10 mg, Rectal, DAILY PRN, Starting on Thu10/13/23 at 1338, Until Discontinued, Other (specify), 3rd line cepacol 1 lozenge mouth/throat 1 lozenge, Oral, Q2H PRN, Starting on Thu10/14/23 at 1058, Until Discontinued, Sore Throat Given 10/15/2023 5:59 PM CDT 1 lozenge Given 10/15/2023 7:58 AM CDT 1 lozenge Given 10/14/2023 6:16 PM CDT 1 lozenge enoxaparin (LOVENOX) 40 mg/0.4 mL injection 40 mg 40 mg, Subcutaneous, DAILY, First dose on Thu10/13/23 at 1305, Until Discontinued Given 10/16/2023 8:12 AM CDT 40 mg Right Upper Arm Given 10/15/2023 7:57 AM CDT 40 mg Ab dominal Tissue Given 10/14/2023 8:18 AM CDT 40 mg Ab dominal Tissue GABApentin (NEURONTIN) 250 mg/5 mL oral solution 300 mg 300 mg, Feeding Tube, TID, First dose (after last modification) on Thu10/14/23 at 1400, Until Discontinued Given 10/16/2023 4:22 PM CDT 300 mg Given 10/16/2023 8:13 AM CDT 300 mg Given 10/15/2023 9:11 PM CDT 300 mg guar gum (NUTRISOURCE FIBER) packet 1 packet 1 packet, Feeding Tube, TID, First dose on Thu10/14/23 at 1400, Until Discontinued Given 10/16/2023 4:22 PM CDT 1 pac ket Given 10/16/2023 8:13 AM CDT 1 packet Given 10/15/2023 9:12 PM CDT 1 packet hydroxychloroquine (PLAQUENIL) tablet 200 mg 200 mg, Feeding Tube, BID, First dose on Thu10/14/23 at 1100, Until Discontinued Given 10/16/2023 8:12 AM CDT 200 mg Given 10/15/2023 9:12 PM CDT 200 mg Given 10/15/2023 7:57 AM CDT 200 mg loperamide (IMODIUM) capsule 2 mg 2 mg, Feeding Tube, Q3H PRN, Starting on Thu10/13/23 at 1358, Until Discontinued, Diarrhea Given 10/15/2023 7:57 AM CDT 2 mg Given 10/14/2023 12:10 PM CDT 2 mg Given 10/13/2023 2:25 PM CDT 2 mg melatonin tablet 3 mg 3 mg, Feeding Tube, BEDTIME PRN, Starting on Thu10/13/23 at 1208, Until Discontinued, Sleep Given 10/15/2023 10: 52 PM CDT 3 mg Given 10/14/2023 8:42 PM CDT 3 mg Given 10/13/2023 9:04 PM CDT 3 mg pantoprazole (PROTONIX) injection 40 mg 40 mg, IV Push, DAILY, Administer over 2 Minutes, First dose on Thu10/11/23 at 0800, Until Discontinued Given 10/16/2023 8:13 AM CDT 40 mg Given 10/15/2023 7:58 AM CDT 40 mg Given 10/14/2023 8:18 AM CDT 40 mg polyethylene glycol 3350 (MIRALAX;GLYCOLAX) packet 17 g 17 g, Feeding Tube, DAILY PRN, Starting on Thu10/13/23 at 1338, Until Discontinued, Constipation (Use First) senna (UNI-CENNA) syrup 26.4 mg 26.4 mg (15 mL), Feeding Tube, BID PRN, Starting on Thu10/14/23 at 1106, Until Discontinued, Constipation (Use Second) traZODone (DESYREL) tablet 50 mg 50 mg, Feeding Tube, BEDTIME PRN, Starting on Thu10/13/23 at 1209, Until Discontinued, Sleep, 2nd line (use after melatonin) Given 10/15/2023 10:52 PM CDT 50 mg Given 10/14/2023 8:42 PM CDT 50 mg Given 10/13/2023 9:04 PM CDT 50 mg water oral liquid 75 mL 75 mL, Feeding Tube, Q3H, First dose on Thu10/13/23 at 1200, Until Discontinued Given 10/16/2023 4:22 PM CDT 75 mL Given 10/16/2023 12:08 PM CDT 75 mL Given 10/16/2023 9:24 AM CDT 75 mL Inactive Administered Medications - up to 3 most recent administrations Medication Order MAR Action Action Date Dose Rate Site acetaminophen (OFIRMEV) 10 mg/mL IV 1,000 mg 1,000 mg, Intravenous, Q6H, Administer over 15 Minutes, First dose on Thu10/11/23 at 0625, Until Discontinued New Bag 10/13/2023 12:30 PM CDT 1,000 mg 400 mL/hr New Bag 10/13/2023 5:42 AM CDT 1,000 mg 400 mL/hr New Bag 10/13/2023 12:00 AM CDT 1,000 mg 400 mL/hr barium (VARIBAR) suspension 60 mL 60 mL, Oral, RAD ONE TIME AUTO ACKNOWLEDGE, 1 dose, On Thu10/16/23 at 1015 Given 10/16/2023 10:13 AM CDT 60 mL Oral barium sulfate 40 % oral suspension 15 mL 15 mL, Oral, RAD ONE TIME AUTO ACKNOWLEDGE, 1 dose, On Thu10/16/23 at 1015 Given 10/16/2023 10:14 AM CDT 15 mL Oral Barium Sulfate 40 % paste 20 mL 20 mL, Oral, RAD ONE TIME AUTO ACKNOWLEDGE, 1 dose, On Thu10/16/23 at 1015 Given 10/16/2023 10:14 AM CDT 20 mL Oral cefEPIME (MAXIPIME) 2,000 mg in NaCl 0.9% IVPB 2,000 mg (2 g), Indication (Select One): Prophylaxis - Medical, Intravenous, ONE TIME, 1 dose, On 10/11/23 at 0125 New Bag 10/11/2023 2:14 AM CDT 2,000 mg 200 mL/hr diphenhydrAMINE (BENADRYL) 12.5 mg/5mL elixir 50 mg 50 mg, Feeding Tube, BEDTIME, First dose on Thu10/12/23 at 2000, Until Discontinued Given 10/12/2023 10:12 PM CDT 50 mg diphenhydrAMINE (BENADRYL) capsule 25 mg 25 mg, Oral, QID PRN, 1 dose, Starting on 10/11/23 at 2236, Until 10/11/23 at 2303, Other (specify), Sleep and anxiety Given 10/11/2023 11:03 PM CDT 25 mg HYDROmorphone PF (DILAUDID) 1 mg/mL injection 0.5 mg 0.5 mg, IV Push, ONE TIME, 1 dose, On 10/11/23 at 0050 Given 10/11/2023 1:24 AM CDT 0.5 mg iohexol (OMNIPAQUE) 240 mg/mL injection Oral, RAD ONE TIME AUTO ACKNOWLEDGE, 1 dose, On 10/11/23 at 0925 Given 10/11/2023 9:21 AM CDT 50 mL Oral iohexol (OMNIPAQUE) 350 mg/mL injection IV Push, RAD ONE TIME AUTO ACKNOWLEDGE, 1 dose, On 10/10/23 at 2340 Given 10/10/2023 11:36 PM CDT 120 mL Left Arm LORazepam (ATIVAN) 2 mg/mL injection 1 mg 1 mg, IV Push, BEDTIME PRN, Starting on Thu10/12/23 at 1436, Until Thu10/13/23 at 1100, Other (specify), Sleep. May use if patient is still awake at midnight Given 10/12/2023 9:32 PM CDT 1 mg pantoprazole (PROTONIX) injection 40 mg 40 mg, IV Push, ONE TIME, Administer over 2 Minutes, On 10/11/23 at 0245 Given 10/11/2023 4:05 AM CDT 40 mg potassium chloride (K-VERO) powder 40 mEq 40 mEq, Feeding Tube, ONE TIME, 1 dose, On Thu10/13/23 at 1115 Given 10/13/2023 12:14 PM CDT 40 mEq potassium phosphates 6 mmol in NaCl 0.9% 50 mL IVPB 6 mmol, Intravenous, ONE TIME, On Thu10/13/23 at 1200 New Bag 10/13/2023 1:29 PM CDT 6 mmol documented in this encounter Active and Recently Administered Medications Times are shown in CDT. Scheduled Medication Order 10/14/2023 10/15/2023 10/16/2023 amLODIPine (NORVASC) tablet 5 mg 5 mg, Feeding Tube, DAILY, First dose on Thu10/14/23 at 0800, Until Discontinued 0818 (Given - Provider: Halley Pierce RN) 0757 (Given - Provider: Halley Pierce RN) 0812 (Given - Provider: Miguelina Cooper RN) ampicillin-sulbactam (UNASYN) 3 g in NaCl 0.9% 100 mL IVPB 3 g, Indication (Select One): Prophylaxis - Medical, Intravenous, Q6H, 28 doses, First dose on Thu10/11/23 at 0625, Last dose on Thu10/18/23 at 0000 0005 (New Bag - Provider: Francheska Yuan RN)0035 (Infusion completed - Provider: Francheska Yuan RN)0614 (New Bag - Provider: Francheska Yuan RN)0644 (Infusion completed - Provider: Francheska Yuan RN)1206 (New Bag - Provider: Halley Pierce RN)1300 (Infusion completed - Provider: Halley Pierce RN)1816 (New Bag - Provider: Halley Pierce RN)1846 (Infusion completed - Provider: Francheska Yuan RN) 0008 (New Bag - Provider: Francheska Yuan RN)0038 (Infusion completed - Provider: Francheska Yuan RN)0629 (New Bag - Provider: Francheska Yuan RN)0659 (Infusion completed - Provider: Francheska Yuan RN)1256 (New Bag - Provider: Halley Pierce RN)1402 (Infusion completed - Provider: Halley Pierce RN)1758 (New Bag - Provider: Halley Pierce, RICK)1903 (Infusion completed - Provider: Halley Pierce RN)2351 (New Bag - Provider: Daisy Neely, RICK) 0021 (Infusion completed - Provider: Daisy Neely, RN)0620 (New Bag - Provider: Daisy Neely, RN)0658 (Infusion completed - Provider: Daisy Neely, RN)1208 (New Bag - Provider: Miguelina Cooper, RN)1243 (Infusion completed - Provider: Miguelina Cooper, RN)1800 (Due) barium (VARIBAR) suspension 60 mL (COMPLETED) 60 mL, Oral, RAD ONE TIME AUTO ACKNOWLEDGE, 1 dose, On Thu10/16/23 at 1015 1013 (Given - Provider: Byron Self, RT - Comment: [place] MBSS) barium sulfate 40 % oral suspension 15 mL (COMPLETED) 15 mL, Oral, RAD ONE TIME AUTO ACKNOWLEDGE, 1 dose, On Thu10/16/23 at 1015 1014 (Given - Provider: Byron Self, RT - Comment: [place] MBSS) Barium Sulfate 40 % paste 20 mL (COMPLETED) 20 mL, Oral, RAD ONE TIME AUTO ACKNOWLEDGE, 1 dose, On Thu10/16/23 at 1015 1014 (Given - Provider: Byron Self, RT - Comment: [place] MBSS) enoxaparin (LOVENOX) 40 mg/0.4 mL injection 40 mg 40 mg, Subcutaneous, DAILY, First dose on Thu10/13/23 at 1305, Until Discontinued 0818 (Given - Provider: Halley Pierce RN) 0757 (Given - Provider: Halley Pierce RN) 0812 (Given - Provider: Miguelina Cooper, RICK) GABApentin (NEURONTIN) 250 mg/5 mL oral solution 300 mg 300 mg, Feeding Tube, TID, First dose (after last modification) on Thu10/14/23 at 1400, Until Discontinued 1313 (Given - Provider: Halley Pierce RN)2042 (Given - Provider: Francheska Yuan RN) 0758 (Given - Provider: Halley Pierce RN)1258 (Given - Provider: Halley Pierce RN)2111 (Given - Provider: Daisy Neely RN) 08 (Given - Provider: Miguelina Cooper, RICK)162 (Given - Provider: Miguelina Cooper, RICK)1999 (Due) guar gum (NUTRISOURCE FIBER) packet 1 packet 1 packet, Feeding Tube, TID, First dose on Thu10/14/23 at 1400, Until Discontinued 1313 (Given - Provider: Halley Pierce RN)204 (Given - Provider: Francheska Yuan RN) 075 (Given - Provider: Halley Pierce RN)1258 (Given - Provider: Halley Pierce RN)2111 (Given - Provider: Daisy Neely RN) 08 (Given - Provider: Miguelina Cooper RN)162 (Given - Provider: Miguelina Cooper RN)1999 (Due) hydroxychloroquine (PLAQUENIL) tablet 200 mg 200 mg, Feeding Tube, BID, First dose on Thu10/14/23 at 1100, Until Discontinued 1210 (Given - Provider: Halley Pierce RN)2041 (Given - Provider: Francheska Yuan RN) 075 (Given - Provider: Halley Pierce RN)2111 (Given - Provider: Daisy Neely RN) 08 (Given - Provider: Miguelina Cooper RN)1999 (Due) pantoprazole (PROTONIX) injection 40 mg 40 mg, IV Push, DAILY, Administer over 2 Minutes, First dose on Thu10/11/23 at 0800, Until Discontinued 08 (Given - Provider: Halley Pierce RN) 075 (Given - Provider: Halley Pierce RN) 08 (Given - Provider: Miguelina Cooper, RICK) water oral liquid 75 mL 75 mL, Feeding Tube, Q3H, First dose on Thu10/13/23 at 1200, Until Discontinued 0005 (Given - Provider: Francheska Yuan RN)0300 (Given - Provider: Francheska Yuan RN)0618 (Given - Provider: Francheska Yuan RN)0900 (Given - Provider: Halley Pierce RN)1208 (Given - Provider: Halley Pierce RN)1502 (Given - Provider: Halley Pierce RN)1816 (Given - Provider: Halley Pierce RN)2100 (Given - Provider: Francheska Yuan RN) 0000 (Given - Provider: Francheska Yuan RN)0300 (Given - Provider: Francheska Yuan RN)0600 (Given - Provider: Francheska Yuan RN)0901 (Given - Provider: Halley Pierce RN)1200 (Given - Provider: Halley Pierce RN)1500 (Given - Provider: Halley Pierce RN)1801 (Given - Provider: Halley Pierce RN)2220 (Given - Provider: Daisy Neely, RICK) 0300 (Given - Provider: Daisy Neely RN)0350 (Given - Provider: Daisy Neely, RICK)0758 (Given - Provider: Daisy Neely RN)0924 (Given - Provider: Miguelina Cooper RN)1208 (Given - Provider: Miguelina Cooper RN)1622 (Given - Provider: Miguelina Cooper RN)1800 (Due)2100 (Due) PRN Medication Order 10/14/2023 10/15/2023 10/16/2023 acetaminophen (TYLENOL) 160 mg/ 5mL oral solution 650 mg 650 mg, Feeding Tube, Q4H PRN, Starting on Thu10/13/23 at 1215, Until Discontinued, Mild Pain (Use First) 0031 (Given - Provider: Francheska Yuan RN)1821 (Given - Provider: Halley Pierce RN) 0302 (Given - Provider: Nain Shearer RN)0814 (Given - Provider: Halley Pierce RN)1258 (Given - Provider: Halley Pierce RN)1759 (Given - Provider: Halley Pierce RN) 0000 (Given - Provider: Daisy Neely RN) bisacodyl (DULCOLAX) suppository 10 mg 10 mg, Rectal, DAILY PRN, Starting on Thu10/13/23 at 1338, Until Discontinued, Other (specify), 3rd line cepacol 1 lozenge mouth/throat 1 lozenge, Oral, Q2H PRN, Starting on Thu10/14/23 at 1058, Until Discontinued, Sore Throat 1206 (Given - Provider: Halley Pierce RN)1816 (Given - Provider: Halley Pierce RN) 0758 (Given - Provider: Halley Pierce RN)1759 (Given - Provider: Halley Pierce RN) loperamide (IMODIUM) capsule 2 mg 2 mg, Feeding Tube, Q3H PRN, Starting on Thu10/13/23 at 1358, Until Discontinued, Diarrhea 1210 (Given - Provider: Halley Pierce RN) 0757 (Given - Provider: Halley Pierce RN) melatonin tablet 3 mg 3 mg, Feeding Tube, BEDTIME PRN, Starting on Thu10/13/23 at 1208, Until Discontinued, Sleep 2041 (Given - Provider: Francheska Yuan RN) 2251 (Given - Provider: Daisy Neely, RICK) polyethylene glycol 3350 (MIRALAX;GLYCOLAX) packet 17 g 17 g, Feeding Tube, DAILY PRN, Starting on Thu10/13/23 at 1338, Until Discontinued, Constipation (Use First) senna (UNI-CENNA) syrup 26.4 mg 26.4 mg (15 mL), Feeding Tube, BID PRN, Starting on Thu10/14/23 at 1106, Until Discontinued, Constipation (Use Second) traZODone (DESYREL) tablet 50 mg 50 mg, Feeding Tube, BEDTIME PRN, Starting on Thu10/13/23 at 1209, Until Discontinued, Sleep, 2nd line (use after melatonin) 2041 (Given - Provider: Francheska Yuan RN) 2251 (Given - Provider: Daisy Neely, RICK) documented in this encounter
== END 2023-10-10 20:56 | disposition home or self-care (01) ==
LOC: AMB 10-16 18:27
PROVIDERS: PCP Family Medicine; Visit Provider Internal Medicine
DX: T71.9XXA Asphyxiation due to unspecified cause, initial encounter (principal); V86.99XA Unspecified occupant of other special all-terrain or other off-road motor vehicle injured in nontraffic accident, initial encounter; W31.89XA Contact with other specified machinery, initial encounter; Y93.I9 Activity, other involving external motion; S19.9XXA Unspecified injury of neck, initial encounter; Y92.9 Unspecified place or not applicable
CPT/HCPCS: A0425; A0427

== ENCOUNTER 2023-11-25 09:25 | Outpatient (CLI) | payer MEDICARE, SELFPAY ==
--- OUTSIDE RECORDS SUMMARY | 2023-11-27 13:00 | XMS_ITS | Clinical Summary ---
Author Organization [facility] Address [address] [place] [address]. [place] [address] Care Team Providers Care Retail Loss Prevention Investigator Name Role Phone Devyn Holden MD Primary Care Provider [phone] Zulay Santizo MD Unavailable Allergies Active Allergy Reactions Criticality Noted Date Comments Sulfa Antibiotics Swelling 10/06/2012 Medications Medication Sig Dispensed Refills Start Date End Date Status hydroxychloroquine (PLAQUENIL) 200 MG tablet Take 200 mg by mouth 2 times daily. Active AmLODIPine Besylate (NORVASC PO) Take 10 mg by mouth daily. Active aspirin 81 MG tablet Take 81 mg by mouth daily. Active Rizatriptan Benzoate (MAXALT-FURNACE ERECTOR PO)Indications:Migrai ne Take 10 mg by mouth. 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 Dysphonia (Primary Dx); Oropharyngeal dysphagia 10/22/2023 10:30 AM CDT Office Visit [facility] [address] [address] Zulay Santizo MD Dysphonia (Primary Dx) 10/22/2023 Travel 10/22/2023 PRE VISIT [facility] [address] [place] [id number] Zulay Santizo MD Previsit from Last 3 Months Social History Tobacco Use Types Packs/Day Years Used Date Smoking Tobacco: Former Alcohol Use Standard Drinks/Week Comments Yes 0 (1 standard drink = 0.6 oz pur e alcohol) occasional Adolescent Education Answer Date Record ed Getting School Help Needed Not on file 10/21 Sex and Gender Information Value Date Recorded Sex Assigned at Not on file Gender Identity Not on file Sexual Orientation Not on file Last Filed Vital Signs Vital Sign Reading Time Taken Comments Blood Pressure 121/77 10/22/2023 10:17 AM CDT Pulse 99 10/22/2023 10:17 AM CDT Temperature 35.9 ??C (96.6 ??F) 10/12/2012 9:12 AM CD T Respiratory Rate 16 10/12/2012 12:45 PM CDT Oxygen Saturation 96% 10/12/2012 12:45 PM CDT Inhaled Oxygen Concentration - - Weight 64.4 kg (142 lb) 10/22/2023 10:17 AM CDT Height 157.5 cm (5' 2) 10/22/2023 10:17 AM CDT Body Mass Index 25.97 10/22/2023 10:17 AM CDT Plan of Treatment Health Maintenance Due Date Last Done Comments ADVANCE CARE PLANNING 1945 ANNUAL REVIEW OF HM ORDERS 1945 DEXA 1945 HEPATITIS C SCREENING 1965 LIPID 1987 RSV VACCINE ( & 60+) (1 - 1-dose 60+ series) 2007 FALL RISK ASSESSMENT 2012 MEDICARE ANNUAL WELLNESS VISIT 2012 GLUCOSE 10/03/2013 10/03/2010, 0311/2009, 02/11/2009, Additional history exists PHQ-2 (once per calendar year) 2023 COVID-19 Vaccine ( season) 2023 02/13/2023, 01/28/2022, 11/03/2021, Additional history exists INFLUENZA VACCINE (#1) 2023 3, 01/28/2022, 01/03/2021, Additional history exists LUNG CANCER SCREENING 10/10/2024 10/11/2023 , 10/10/2023, 11/30/2022, Additional history exists DTAP/TDAP/TD IMMUNIZATION (2 - Td or Tdap) 04/09/2032 04/09/2022 ZOSTER IMMUNIZATION Completed 05/26/2021, Pneumococcal Vaccine: 65+ Years Completed 04/09/2022, 03/20/2020 MAMMO SCREENING Discontinued 08/04/2023, 07/13, 05/12/2022, Additional history exists HPV IMMUNIZATION Aged Out No longer e ligible based on patient's age to complete this topic IPV IMMUNIZATION Aged Out No longer e ligible based on patient's age to complete this topic MENINGITIS IMMUNIZATION Aged Out No l onger eligible based on patient's age to complete this topic RSV MONOCLONAL ANTIBODY Aged Out No l onger eligible based on patient's age to complete this topic Procedures Procedure Name Priority Date/Time Associated Diagnosis Comments [place] BEHAVIORAL & QUALITATIVE ANALYSIS VOICE AND RESONANCE Routine 11/04/2023 7:49 AM CDT Oropharyngeal dysphagia Dysphonia [place] LARYNGOSCOPY FLEX FIBEROPTIC, DIAGNOSTIC Routine 10/22/2023 11:06 AM CDT Dysphonia IMAGESTREAM RECORDING ORDER Routine 10/22/2023 10:[address] CHEST W/O CONTRAST Routine 10/11/2023 9:20 AM CDT MA SCREENING BILATERAL W/ GISELL Routine 08/04/2023 11:28 AM CDT BASIC METABOLIC PANEL Routine 10/03/2010 11:20 AM CDT from Last 3 Months or Most Recently Relevant to Health Maintenance Results * IMAGESTREAM RECORDING ORDER (10/22/2023 10:20 AM CDT) 10/22/2023 10:2 0 AM CDT Zulay Santizo MD OTHER RADIOLOGY RESULTS * Basic metabolic panel (10/03/2010 11:20 AM CDT) Sodium 142 133 - 144 mmol/L [facility] Potassium 4.3 3.4 - 5.3 mmol/L [facility] Chloride 105 94 - 109 mmol/L [facility] Carbon Dioxide 30 20 - 32 mmol/L [facility] Anion Gap 8 6 - 17 mmol/L [facility] Glucose 89 60 - 99 mg/dL [facility] Urea Nitrogen 15 7 - 30 mg/dL [facility] Creatinine 0.76 0.52 - 1.04 mg/dL [facility] GFR Estimate 77 >60 mL/min/1.[address] [facility] GFR Estimate If Black >90 >60 mL/min/1.[address] [facility] Calcium 9.1 8.5 - 10.4 mg/dL [facility] 10/03/2010 11:2 0 AM CDT 10/03/2010 11:30 AM CDT Jamir Garcia MD LAB - BLOOD ORDERA BLES [facility] from Last 3 Months or Most Recently Relevant to Health Maintenance Care Teams Retail Loss Prevention Investigator Relationship Specialty Start Date End Date Devyn Holden MD [facility] [id number] [place] [address] PCP - General Family Practice 09/23/12 Zulay Santizo MD [address] [place] [id number] Assigned Surgical Provider 11/03/23
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
--- OUTSIDE RECORDS SUMMARY | 2023-11-27 13:00 | XMS_ITS | Referral Summary ---
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 Active Rizatriptan Benzoate (MAXALT-RIBBING MACHINE OPERATOR PO)Indications:Migrai ne Take 10 mg by mouth. [...] Active Active Problems No known active problems Social History Tobacco Use Types Packs/Day Years [...] 10/22/2023 10:17 AM CDT Plan of Treatment Not on file Procedures Procedure Name Priority Date/Time Associated Diagnosis Comments CA BEHAVIORAL & QUALITATIVE ANALYSIS VOICE AND RESONANCE Routine 11/04/2023 7:49 AM CDT Oropharyngeal dysphagia Dysphonia CA LARYNGOSCOPY FLEX FIBEROPTIC, DIAGNOSTIC Routine 10/22/2023 11:06 [...] CDT) Sodium 142 133 - 144 mmol/L [facility] Potassium 4.3 3.4 - 5.3 mmol/L [facility] Chloride 105 94 - 109 mmol/L [facility] Carbon Dioxide 30 20 - 32 mmol/L [facility] Anion Gap 8 6 - 17 mmol/L [facility] Glucose 89 60 - 99 mg/dL [facility] Urea Nitrogen 15 7 - 30 mg/dL [facility] Creatinine 0.76 0.52 - 1.04 mg/dL [facility] GFR Estimate 77 >60 mL/min/1.7 m2 [facility] GFR Estimate If Black >90 >60 mL/min/1.7 m2 [facility] Calcium 9.1 8.5 - 10.4 mg/dL [facility] 10/03/2010 11:2 0 AM CDT 10/03/2010 11:30 AM CDT Jamir Garcia MD LAB - BLOOD ORDERA BLES [facility] from Last 3 Months or Most Recently Relevant to Health Maintenance Care Teams Button Pusher Relationship Specialty Start Date End Date Devyn Holden MD [facility] [address] [place] [address] PCP - General Family Practice 09/23/12 Zulay Santizo MD [address] [place] [id number] Assigned Surgical Provider 11/03/23
--- OUTSIDE RECORDS SUMMARY | 2023-11-27 13:00 | XMS_ITS | Encounter Summary ---
Author Organization [facility] Address [address] [place] [address] Care Team Providers Care Milk Route Supervisor Name Role Phone Devyn Holden MD Primary Care Provider [phone] Encounter Details Date Type Department Care Team (Latest Contact Info) Description 10/22/2023 Travel Social History Tobacco Use Types Packs/Day [...] Diagnoses Not on filedocumented in this encounter Care Teams Milk Route Supervisor Relationship Specialty Start Date End Date Devyn Holden MD [facility] [address] [place] [address] PCP - General Family Practice 09/23/12 documented as of this encounter
--- OUTSIDE RECORDS SUMMARY | 2023-11-27 13:01 | XMS_ITS | Encounter Summary ---
Author Organization [facility] Address [address] [place] [address] Phone Care Team Providers Care Intercell Connector Placer Name Role Phone Devyn Holden MD Primary Care Provider [phone] Gayla Murillo PHYSICAL EDUCATION INSTRUCTOR CCC Unavailable [phone] Encounter Details Date Type Department Care Team (Late st Contact Info) Description 10/19/2023 Documentation Only Home Equipment Services [address] [facility] Martin Moura MD [facility] [address] [place] [address] Social History Tobacco Use Types Packs/Day [...] as of this encounter Progress Notes * Anabela Chavarria [facility] - 10/19/2023 9:44 AM CDT The order for food supplements/tube feeding supplies was sent to [facility] @ , phone . Attention Melinda Luong RD Liaison. [facility] will contact the patient before delivery to schedule a time. Anabela Chavarria [facility], 10/19/2023 9:44 AM documented in this encounter Plan of Treatment Not on file documented as of this encounter Visit Diagnoses Not on filedocumented in this encounter Care Teams Intercell Connector Placer Relationship Specialty Start Date End Date Devyn Holden MD [facility] [address] [place] [address] PCP - General Family Medicine 10/19/23 Gayla Murillo, PHYSICAL EDUCATION INSTRUCTOR [facility] [address] [place] [address] Speech Pathologist Speech Pathology 10/19/23 documented as of this encounter
--- OUTSIDE RECORDS SUMMARY | 2023-11-27 13:01 | XMS_ITS | Encounter Summary ---
Author Organization [facility] Address [address] [facility] [place] [address] Phone Care Team Providers Care Client Care Manager Name Role Phone Devyn Holden MD Primary Care Provider [phone] Gayla Murillo CARROTING MACHINE OFFBEARER CCC Unavailable [phone] Reason for Visit * Reason Onset Date Comments Prior Authorization For Medications 10/21/2023 Amlodipine Encounter Details Date Type Department Care Team (Late st Contact Info) Description 10/21/2023 Pharmacy Prior Authorization [facility] [address] [facility] [address] [place], [place] [id number] Martin Moura MD [facility] [address] [place] [address] Social History Tobacco Use Types Packs/Day [...] as of this encounter Progress Notes * Anel Rose - 10/21/2023 11:51 AM CDT [facility]ACE[facility] SUBMITTED A prior authorization request for Amlodipine 1 mg/ml suspension compound has been submitted to [employer] ([facility] Medicare) insurance via phone. We will update once we have a decision back. Thanks! Anel Rose [facility] Lead Athlete - Pharmacy Prior Authorization Team Information noted is based upon details provided by the patient and/or patient???s insurance plan as of this chart note???s date. Insurance coverage may change at any time, therefore a benefit statusrecheck should be completed for each visit. The patient is responsible for checking with insurance on applicable copays/coinsurance/deductible responsibilities * Anel Rose - 10/21/2023 11:51 AM CDT Prior authorization APPROVED for the following Medication Name: Amlodipine 1 mg/ml suspension Sig: Take 10 ml per feeding tube daily Approved by insurance plan: [employer] ([employer] Medicare) Diagnosis: Hypertension, Raynaud's Other medications tried and failed: n/a PA is valid from 07/23/2023 to 10/20/2024 Discharge pharmacy notified via Teams chat with Alyson, $9.50 copay, pharmacy will contact patient. NOTE: Plan approved Amlodipine 5 mg tablets, the Ora-Plus and Simple Syrup was denied due to being an OTC medication. Pharmacy will have to bill with DUR override to Process for Approved Ingredients Only. Thanks! Anel Rose Pharmacy Lead Athlete-Prior Authorization Information noted is based upon details provided by the patient and/or patient???s insurance plan as of this chart note???s date. Insurance coverage may change at any time, therefore a benefit statusrecheck should be completed for each visit. The patient is responsible for checking with insurance on applicable copays/coinsurance/deductible responsibilities documented in this encounter Plan of Treatment Not on file documented as of this encounter Visit Diagnoses Not on filedocumented in this encounter Care Teams Client Care Manager Relationship Specialty Start Date End Date Devyn Holden MD [facility] [address] [place] [address] PCP - General Family Medicine 10/19/23 Gayla Murillo, CARROTING MACHINE OFFBEARER [facility] [address] [place] [address] Speech Pathologist Speech Pathology 10/19/23 documented as of this encounter
--- OUTSIDE RECORDS SUMMARY | 2023-11-27 13:01 | XMS_ITS | Encounter Summary ---
Author Organization [facility] Address [address] [place] [id number] Phone Care Team Providers Care Bilingual Manager Name Role Phone Devyn Holden MD Primary Care Provider [phone] Gayla Murillo SKILLED NURSING PROFESSIONAL CCC Unavailable [phone] Reason for Visit * Consult/Test/Treat (Urgent) - Closed Specialty Diagnoses / Procedures Referred By Contac t Referred To Contact Speech Pathology / NEUROLOGY Diagnoses Blunt trauma of neck, subsequent encounter Martin Moura MD [address] [address] Referral ID Status Reason Start Date Expiration Date Visits Re quested Visits Authorized [id number] Closed 10/17/2023 10/17/2024 1 1 Encounter Details Date Type Department Care Team (Latest Contact Info) Description 10/29/2023 12:37 PM CDT - 10/29/2023 11:59 PM CDT [facility] [address] [address] Francheska Sequeira PA-C [address] [place] [address] [address] [place], [place] [id number] Martin Moura MD [address] [id number] Gayla Murillo, SKILLED NURSING PROFESSIONAL [address] [address] Discharge Disposition: Discharged to home or self care (routine discharge) Social History Tobacco Use Types Packs/Day Years [...] on file documented as of this encounter Medications at Time of Discharge Medication Sig Dispensed Refills Start Date End Date amLODIPine (NORVASC) 1 mg/mL oral suspension OP Take 10 mL (10 mg) per feeding tube daily. 300 mL 1 10/19/2023 GABApentin (NEURONTIN) 250 mg/5 mL oral solution Take 18 mL (900 mg) per feeding tube 3 times daily. 940 mL 1 10/19/2023 hydroxychloroquine (PLAQUENIL) 200 mg oral TABS Take 1 tablet (200 mg) per feeding tube twice daily. 10/19/2023 loperamide (IMODIUM) 1 mg/7.5mL oral solution Take 15 mL (2 mg) per feeding tube every 3 hours as needed for Diarrhea. 120 mL 1 10/19/2023 acetaminophen childrens 160 mg/ 5 ml oral oral suspension Take 15 mL (480 mg) by feeding tube every 6 hours as needed (For pain). 472 mL 10/19/2023 rizatriptan benzoate (MAXALT) 5 mg oral TABS Take 5 mg by mouth every 2 hours as needed (migraine). documented as of this encounter Procedure Notes * Gayla Murillo, SKILLED NURSING PROFESSIONAL CCC - 10/29/2023 1:00 PM CDT SPEECH-LANGUAGE PATHOLOGY MODIFIED BARIUM SWALLOW STUDY SKILLED NURSING PROFESSIONAL Recommendations Diet Recommendation: Current Diet : IDDSI 7 - Easy to chew Current Liquid: Thin liquids Medication Administration: Medications with thin liquid Aspiration Precautions: Small, single bites and sips;Swallow 2x per bite/sip;Alternate solids and liquids;Encourage periodic throat clear to clear airway Oral Hygiene: [place] teeth 2x/day Positioning Techniques: Seat fully upright and midline when eating Nasal feeding tube was removed at end of the exam Name: Zulma Courtney Gender Identity: female (pronouns: she, her, her) : 1945 Date of Exam: 10/29/2023 Medical Diagnosis: Blunt trauma of neck, subsequent encounter [S19.80XD] Treatment Diagnosis: Oropharyngeal dysphagia [R13.12] Time of Exam: 1300 Contact Time: 30 minutes REFERRAL & HISTORY [...] of the piriform sinuses is clear. Per SKILLED NURSING PROFESSIONAL: Previous MBSS on 10/16/23 revealed Marked prevertebral edema present at level of C2-C7 with resulting severe pharyngeal stage dysphagia. Oral control was good but pharyngeal swallow response was mildly delayed with liquids collecting in the valleculae before a swallow was initiated. Pharyngeal edema impacted epiglottic inversion and full hyolaryngeal elevation causing marked pharyngeal stasis on pureed consistencies and forward displacement of thin liquid boluses into the laryngeal vestibule.Tracheal aspiration occurred consistently during swallows of water thin liquid and larger cup/straw sips of mildly thick liquid. Laryngeal penetration occurred on stasis from all consistencies during subsequent dry swallows. Pt generated 8-10 swallows per 1/2 tsp presentation to achieve partialpharyngeal clearance. Current Status of Nutritional Intake: Non-oral Feeding Methods Purpose of Study: To objectively reassess oropharyngeal swallow and determine safest and least restrictive diet recommendations for optimal nutrition and hydration SUBJECTIVE Barriers to Learning: None identified Observations: Alert;Cooperative Pain: 1/10 Respiratory Status: Room air Precautions: Aspiration OBJECTIVE The patient was positioned in an upright lateral position for the study. Various barium liquid/foodconsistencies were presented: Thin liquid: Teaspoon and Cup sip Mildly thick liquid: Cup sip Puree/Pudding Soft solid (peaches) Hard solid (cookie) Oral Phase: Grossly normal oral phase of the swallow with adequate mastication and oral transit Lip Closure: No labial escape Tongue Control During Bolus Hold: Cohesive bolus between tongue to palatal seal Bolus Preparation/Mastication: Timely and efficient chewing and mashing Bolus Transport/Lingual Motion: Brisk tongue motion Oral Residue: Complete oral clearance Initiation of Pharyngeal Swallow: Bolus head in valleculae Pharyngeal Phase: Moderate pharyngeal stage dysphagia with marked decrease in prevertebral edema. Pharyngeal swallow response was mildly delayed leading to an occurrence of silent aspiration trachealaspiration on the initial spoon presentation of water thin liquid. Good airway protection observed with remaining thin liquid presentations and all other consistencies. Tongue base retraction and hyolaryngeal elevation were grossly normal but epiglottic inversion was restricted due to the feeding tube and mild posterior pharyngeal wall edema. Pt had resulting moderate to marked vallecular stasis after swallows of food consistencies. Clearance was aided by dry swallows and follow up sip of liquid Soft Palate Elevation: No bolus between soft palate (SP)/pharyngeal wall (PW) Laryngeal Elevation: Partial superior movement of thyroid cartilage/partial approximation of arytenoids to epiglottic petiole Anterior Hyoid Excursion: Partial anterior movement Epiglottic Movement: No inversion Laryngeal Vestibular Closure: Incomplete; narrow column air/contrast in laryngeal vestibule Pharyngeal Stripping Wave: Present - complete Pharyngeal Contraction: Complete Pharyngoesophageal Segment Opening: Partial distension/partial duration; partial obstruction of flow Tongue Base (TB) Retraction: No contrast between TB and posterior pharyngeal wall (PW) Pharyngeal Residue:Moderate Collection of residue within or on pharyngeal structures on food but not liquid consistencies. Esophageal Phase: Esophageal Clearance Upright Position: Complete clearance; esophageal coating Compensatory Strategies During Exam swallow 2x per bite/sip and Follow up sip of liquid for pharyngeal clearance 8-Point Penetration/Aspiration Scale Thin liquid: 8 - Material enters the airway, passes below the vocal folds, and no effort is made toeject on initial spoon presentation but none of the subsequent cup sips Mildly thick liquid: 1 - No entry of material into the larynx or trachea Puree: 1 - No entry of material into the larynx or trachea Soft solid (peaches): 1 - No entry of material into the larynx or trachea Hard solid (cookie): 1 - No entry of material into the larynx or trachea CLINICAL IMPRESSIONS Moderate pharyngeal stage dysphagia c/b mildly delayed pharyngeal swallow response causing a singleoccurrence of silent aspiration on spoon sip of thin liquid, fair tongue base retraction and hyolaryngeal elevation but poor epiglottic inversion resulting in moderate vallecular stasis after initial swallows of food consistencies. Clearance was aided by double swallows and follow up sip of liquid.Results indicate marked improvement in swallowing function compared to the previous MBSS on 10/15. Prognosis is good for tolerance for recommended diet. EDUCATION Audience: Patient Education: current diet recommendations;compensatory strategies;risk for aspiration Compensatory Strategies Related To: swallowing Results were discussed with patient and radiologist. Please refer to Radiology report for further impressions. Select images of today's MBSS are available in i[employer]. Speech-Language Pathologist: Gayla Murillo, TASH CCC, 10/29/2023 1:42 PM Pager: [phone] documented in this encounter Plan of Treatment Not on file documented as of this encounter Procedures Procedure Name Priority Date/Time Associated Diagnosis Comments XR MODIFIED BARIUM SWALLOW Routine 10/29/2023 1:35 PM CDT Blunt trauma of neck, subsequent encounter documented in this encounter Results * XR MODIFIED BARIUM SWALLOW (10/29/2023 1:35 PM CDT) Anatomical Region Laterality Modality Abdomen Radio Fluoroscop y 10/29/2023 1:27 PM CDT Impressions 10/29/2023 1:47 PM CDT Impression: 1. Prior to removing the feeding tube, there was a single episode of penetration to the vocal folds with thin barium by spoon without evidence of aspiration. 2. At the discretion of the speech pathologist the enteric feeding tube was removed without complication. The patient was given a single sip of thin barium by cup without evidence of penetration or aspiration. ?? 3. Prominent cricopharyngeal bar. I have personally reviewed the image(s) and initial interpretation, and I agree with the findings as documented by the resident/fellow. Reading Radiologist: Vasu Green Reading Resident: Ivan Marin 10/29/2023 1:47 PM CDT Exam: ??Modified Barium Swallow Indication: Rule out aspiration. Comparison: Modified barium swallow dated 10/16/2023. [place] protocol was followed. Findings: A modified barium swallow is conducted with Speech Pathology present. The patient was evaluated on mildly thick barium, thin barium, puree barium, applesauce mixed with barium, peaches and cookie coated with barium. A single episode of deep laryngeal penetration to the vocal folds with thin barium by spoon without aspiration. Remaining barium consistencies and soft solids were swallowed adequately without penetration or aspiration. No significant contrast pooling in the vallecula or piriform recesses. Epiglottic inversion is within normal limits. At the discretion of the speech pathologist the enteric feeding tube was removed without complication. The patient was given a single sip of thin barium by cup without evidence of penetration or aspiration. Prominent cricopharyngeal bar. Complications: ??None Fluoro time:1.43 minutes Dose: 4.56 mGy Procedure Note Vasu Green MD - 10/29/2023 Exam: Modified Barium Swallow Indication: Rule out aspiration. Comparison: Modified barium swallow dated 10/16/2023. [place] protocol was followed. Findings: A modified barium swallow is conducted with Speech Pathologypresent. The patient was evaluated on mildly thick barium, thin barium,puree barium, applesauce mixed with barium, peaches and cookie coated withbarium. A single episode of deep laryngeal penetration to the vocal foldswith thin barium by spoon without aspiration. Remaining bariumconsistencies and soft solids were swallowed adequately withoutpenetration or aspiration. No significant contrast pooling in thevallecula or piriform recesses. Epiglottic inversion is within normallimits. At the discretion of the speech pathologist the enteric feedingtube was removed without complication. The patient was given a single sipof thin barium by cup without evidence of penetration or aspiration.Prominent cricopharyngeal bar. Complications: None Fluoro time:1.43 minutes Dose: 4.56 mGy IMPRESSION Impression: 1. Prior to removing the feeding tube, there was a single episode ofpenetration to the vocal folds with thin barium by spoon without evidenceof aspiration. 2. At the discretion of the speech pathologist the enteric feeding tubewas removed without complication. The patient was given a single sip ofthin barium by cup without evidence of penetration or aspiration. 3. Prominent cricopharyngeal bar. I have personally reviewed the image(s) and initial interpretation, and Iagree with the findings as documented by the resident/fellow. Reading Radiologist: Vasu Green Reading Resident: Ivan Marin Martin Moura MD RAD FLUORO documented in this encounter Visit Diagnoses Diagnosis Blunt trauma of neck, subsequent encounter documented in this encounter Administered Medications Inactive Administered Medications - up to 3 most recent administrations Medication Order MAR Action Action Date Dose Rate Site barium (VARIBAR) suspension 20 mL 20 mL, Oral, RAD ONE TIME AUTO ACKNOWLEDGE, 1 dose, On [place] 10/29/23 at 1335 Given 10/29/2023 1:10 PM CDT 20 mL Oral barium sulfate 40 % oral suspension 90 mL 90 mL, Oral, RAD ONE TIME AUTO ACKNOWLEDGE, 1 dose, On [place] 10/29/23 at 1335 Given 10/29/2023 1:10 PM CDT 90 mL Oral Barium Sulfate 40 % paste 20 mL 20 mL, Oral, RAD ONE TIME AUTO ACKNOWLEDGE, 1 dose, On [place] 10/29/23 at 1335 Given 10/29/2023 1:10 PM CDT 20 mL Oral documented in this encounter Care Teams Bilingual Manager Relationship Specialty Start Date End Date Devyn Holden MD [facility] [address] [place] [address] PCP - General Family Medicine 10/19/23 Gayla Murillo, SKILLED NURSING PROFESSIONAL [facility] [address] [place] [id number] Speech Pathologist Speech Pathology 10/19/23 documented as of this encounter
--- OUTSIDE RECORDS SUMMARY | 2023-11-27 13:01 | XMS_ITS | Referral Summary ---
Author Organization [facility] Address [address] [place] [address] Phone Care Team Providers Care Property Caretaker Name Role Phone Devyn Holden MD Primary Care Provider [phone] Gayla Murillo CCC Unavailable [phone] Source Comments [employer] is fully rolled out on [employer]. Last update 09/15/08.[facility] Encounters Date Type Department Care Team Description 10/29/2023 Travel 10/29/2023 12:37 PM CDT - 10/29/2023 11:59 PM CDT Hospital En[facility] [address] [address] Francheska Sequeira, PABenitoC Martin Moura MD Wicktor, Lisa A, ARTILLERY MAINTENANCE SUPERVISOR CCC Discharge Disposition: Discharged to home or self care (routine discharge) 10/21/2023 Pharmacy Prior Authorization [facility] [address] [place] [address] Martin Moura MD 10/19/2023 Documentation Only Home Equipment Services 701 Martin Smiley MD 10/10/2023 10:04 PM CDT - 10/19/2023 6:39 PM CDT Hospital Encounter [facility] Surgery/Trauma/Ne uro 3 [address] [place] [address] Gautam Cook MD Schmitz, MD Martell Davies, Martin Dempsey MD Pneumomediastinum ([facility]) Discharge Disposition: Discharged to home or self care (routine discharge) 10/14/2023 [facility] [place] [phone] Aramis Vanessa DO 10/13/2023 Orders Only Unspecified Department [place] Unknown, Provider 10/12/2023 Orders Only Unspecified Department [place] Unknown, Provider 10/12/2023 Orders Only [facility] [address] [address] Mariajose Camarillo MD Blunt trauma of neck, subsequent encounter (Primary Dx); Pneumomediastinum ([facility]) 10/12/2023 Orders Only Unspecified Department [place] Unknown, Provider 10/12/2023 Orders Only [facility] Film Room [facility] Radiology Department [facility] [address] Provider, Outside Referral of patient (Primary Dx) 10/12/2023 Orders Only Unspecified Department [place] Unknown, Provider 10/11/2023 Orders Only Unspecified Department [place] Unknown, Provider 10/10/2023 Travel from Last 3 Months Allergies Active Allergy Reactions Criticality Noted Date Comments Sulfa Antibiotics Swelling High 10/10/2023 Medications * Be aware that medications may not be up to date as of this document. Always verify current medications with patient. Medication Sig Dispensed Refills Start Date End Date Status rizatriptan benzoate (MAXALT) 5 mg oral TABS Take 5 mg by mouth every 2 hours as needed (migraine). Active amLODIPine (NORVASC) 1 mg/mL oral suspension OP Take 10 mL (10 mg) per feeding tube daily. 300 mL 1 10/19/2023 Active GABApentin (NEURONTIN) 250 mg/5 mL oral solution Take 18 mL (900 mg) per feeding tube 3 times daily. 940 mL 1 10/19/2023 Active hydroxychloroquine (PLAQUENIL) 200 mg oral TABS Take 1 tablet (200 mg) per feeding tube twice daily. 10/19/2023 Active loperamide (IMODIUM) 1 mg/7.5mL oral solution Take 15 mL (2 mg) per feeding tube every 3 hours as needed for Diarrhea. 120 mL 1 10/19/2023 Active acetaminophen childrens 160 mg/ 5 ml oral oral suspension Take 15 mL (480 mg) by feeding tube every 6 hours as needed (For pain). 472 mL 10/19/2023 Active Active Problems Problem Noted Date Diagnosed Date Pneumomediastinum ([facility]) 10/11/2023 Blunt trauma of neck, initial encounter 10/11/19 Blunt trauma of neck, subsequent encounter 10/10 [...] Sign Reading Time Taken Comments Blood Pressure 159/78 10/19/2023 7:00 AM CDT Pulse 70 10/19/2023 7:00 AM CDT Temperature 36 ??C (96.8 ??F) 10/19/2023 7:00 AM CDT Respiratory Rate 18 10/19/2023 7:00 AM CDT Oxygen Saturation 96% 10/19/2023 7:00 AM CDT Inhaled Oxygen Concentration - - Weight 65.8 kg (145 lb) 10/11/2023 8:00 AM CDT Height 157.5 cm (5' 2) 10/11/2023 8:00 AM CDT Body Mass Index 26.52 10/11/2023 8:00 AM CDT Plan of Treatment Not on file Procedures Procedure Name Priority Date/Time Associated Diagnosis Comments XR MODIFIED BARIUM SWALLOW Routine 10/29/2023 1:35 PM CDT Blunt trauma of neck, subsequent encounter POC GLUCOSE Routine 10/17/2023 5:59 AM CDT POC GLUCOSE Routine 10/16/2023 11:53 PM CDT XR ABDOMEN 1 VIEW* Routine 10/16/2023 6: [...] PM CDT XR CHEST OUTSIDE FILMS Routine 8:17 PM CDT Referral of patient XR LOWER EXTREMITY OUTSIDE FILMS Routine 10/10/2023 7:38 PM CDT Referral of patient XR LOWER EXTREMITY OUTSIDE FILMS Routine 10/10/2023 7:33 PM CDT Referral of patient CT SPINE OUTSIDE FILMS Routine 4 7:10 PM CDT Referral of patient CT SPINE OUTSIDE FILMS Routine 4 7:10 PM CDT Referral of patient from Last 3 Months Results * XR MODIFIED BARIUM SWALLOW (10/29/2023 1:35 PM CDT) Only the most recent of2 resultswithin the time period is included. Anatomical Region Laterality Modality Abdomen Radio Fluoroscop [...] aspiration. Comparison: Modified barium swallow dated 10/16/2023. [place] protocol was followed. Findings: A modified barium [...] aspiration. Comparison: Modified barium swallow dated 10/16/2023. [place] protocol was followed. Findings: A modified barium [...] Ivan Marin Martin Moura MD RAD FLUORO * (ABNORMAL) POC GLUCOSE (10/17/2023 5:59 AM CDT) Only the most recent of19 resultswithin the time period is included. POC Glucose 110(H) 70 - 100 mg/dL [facility] Blood 10/17/2023 5:59 AM CDT Gautam Cook MD LABORATORY [facility] [address] [place] [address], [place] * XR ABDOMEN 1 VIEW* (10/16/2023 6:10 [...] coiled in the esophagus outside of the gqiuo-pn-cnif. Reading Radiologist: Vasu Green Narrative 10/16/2023 6:16 [...] coiled in the esophagus outside of the decmo-ah-eanw. Reading Radiologist: Vasu Green Martin Moura MD RAD XRAY * (ABNORMAL) TRANSFERRIN (INCLUDES TIBC) (10/14/2023 7:13 AM CDT) Transferrin 170(L) 200 - 360 mg/dL [facility] IBC 253(L) 298 - 536 mcg/dL [facility] Iron Saturation Percent 12(L) 20 - 50 % [facility] Blood 10/14/2023 7:13 AM CDT 10/14/2023 7:33 AM CDT Martin Moura MD LABORATORY Performing Organization Address [facility] Co de Phone Number [facility] [address] [address] * (ABNORMAL) PANEL BASIC METABOLIC (BMP) (10/14/2023 7:13 AM CDT) Only the most recent of2 resultswithin the time period is included. CO2 24 22 - 30 mmol/L [facility] Glucose 117(H) 70 - 100 mg/dL [facility] BUN 8 8 - 23 mg/dL [facility] Creatinine 0.55 0.50 - 1.00 mg/dL [facility] Calcium 8.9 8.8 - 10.2 mg/dL [facility] Sodium 141 135 - 148 mmol/L [facility] Potassium 3.6 3.5 - 5.3 mmol/L [facility] Chloride 106 92 - 108 mmol/L [facility] AnGap 11 8 - 16 mmol/L [facility] eGFR (2020 CKD-EPI) 95 >=60 ml/min/1.7 3m2 [facility] Comment: The estimated glomerular filtration rate (eGFR) was calculated using the CKD-EPI 2020 creatinine equation, which does not include race as a factor. This equation is validated in individuals 18 years of age and older, and eGFR is normalized to a body surface area of 1.73m^2. Blood 10/14/2023 7:13 AM CDT 10/14/2023 7:33 AM CDT Martin Moura MD LABORATORY Performing Organization Address City/[facility]/ZIP Co de Phone Number [facility] [address] [address] * (ABNORMAL) IRON (10/14/2023 7:13 AM CDT) Iron 31(L) 35 - 145 mcg/dL [facility] Blood 10/14/2023 7:13 AM CDT 10/14/2023 7:33 AM CDT Martin Moura MD LABORATORY Performing Organization Address City/[facility]/ZIP Co de Phone Number [facility] [address] [address] * (ABNORMAL) FERRITIN (10/14/2023 7:13 AM CDT) Pathologist [facility] Ferritin 400.0(H) 13.0 - 150.0 ng/mL [facility] Comment: Test Performed by: [facility] [address] [place] [id number] Blood 10/14/2023 7:13 AM CDT 10/14/2023 7:33 AM CDT Martin Moura MD LABORATORY Performing Organization Address [facility] Co de Phone Number [facility] [address] [address] * (ABNORMAL) CBC WITH PLATELET (10/14/2023 7:13 AM CDT) Only the most recent of2 resultswithin the time period is included. Pathologist [facility] WBC 3.20(L) 4.00 - 10.00 k/cmm [facility] RBC 3.67(L) 3.90 - 5.20 m/cmm [facility] Hgb 11.1(L) 11.5 - 15.7 g/dL [facility] Hematocrit 34.1 34.0 - 45.0 % [facility] MCV 92.9 80.0 - 100.0 fL [facility] MCH 30.2 25.0 - 32.0 pg [facility] MCHC 32.6 31.0 - 36.0 g/dL [facility] RDW 13.1 11.5 - 14.5 % [facility] Plt 183 150 - 400 k/cmm [facility] MPV 10.4 6.5 - 12.5 fL [facility] Blood 10/14/2023 7:13 AM CDT 10/14/2023 7:33 AM CDT Martin Moura MD LABORATORY Performing Organization Address City/[facility]/ZIP Co de Phone Number [facility] [address] [address] * PHOSPHORUS (10/14/2023 7:11 AM CDT) Only the most recent of2 resultswithin the time period is included. Phosphorus 3.6 2.5 - 4.5 mg/dL [facility] Blood 10/14/2023 7:11 AM CDT 10/14/2023 12:48 PM CDT Martin Moura MD LABORATORY [address] [address] * MAGNESIUM (10/13/2023 6:39 AM CDT) [facility] Signature Magnesium 1.9 1.6 - 2.4 mg/dL [facility] Blood 10/13/2023 6:39 AM CDT 10/13/2023 6:55 AM CDT Vasu Argueta APRN, CNP LABORATORY Performing Organization Address [facility] Co de Phone Number [address] [address] * TELEMETRY STRIPS (10/13/2023 2:47 AM CDT) Only the most recent of5 resultswithin the time period is included. Narrative 10/13/2023 2:47 AM CDT Ordered by an unspecified provider. Provider Unknown RAD ECHO * ICU MAGNESIUM (10/12/2023 6:25 AM CDT) Magnesium 2.0 1.6 - 2.4 mg/dL [facility] Blood 10/12/2023 6:25 AM CDT 10/12/2023 6:33 AM CDT Lucian Matthews MD LABORATORY Performing Organization Address City/[facility] Co de Phone Number [address] [address] * ICU PHOSPHORUS (10/12/2023 6:25 AM CDT) Phosphorus 2.9 2.5 - 4.5 mg/dL [facility] Blood 10/12/2023 6:25 AM CDT 10/12/2023 6:33 AM CDT Lucian Matthews MD LABORATORY Performing Organization Address City/[facility] Co de Phone Number [facility] [address] [address] * (ABNORMAL) ICU CBC WITH PLATELET (10/12/2023 6:25 AM CDT) Only the most recent of2 resultswithin the time period is included. Pathologist [facility] WBC 6.19 4.00 - 10.00 k/cmm [facility] RBC 3.64(L) 3.90 - 5.20 m/cmm [facility] Hgb 11.4(L) 11.5 - 15.7 g/dL [facility] Hematocrit 33.7(L) 34.0 - 45.0 % [facility] MCV 92.6 80.0 - 100.0 fL [facility] MCH 31.3 25.0 - 32.0 pg [facility] MCHC 33.8 31.0 - 36.0 g/dL [facility] RDW 13.2 11.5 - 14.5 % [facility] Plt 170 150 - 400 k/cmm [facility] MPV 10.1 6.5 - 12.5 fL [facility] Blood 10/12/2023 6:25 AM CDT 10/12/2023 6:34 AM CDT Lucian Matthews MD LABORATORY Performing Organization Address City/[facility] Co de Phone Number [facility] [address] [address] * (ABNORMAL) ICU PANEL BASIC METABOLIC (BMP) (10/12/2023 6:25 AM CDT) Only the most recent of2 resultswithin the time period is included. Pathologist [facility] CO2 22 22 - 30 mmol/L [facility] Glucose 88 70 - 100 mg/dL [facility] BUN 14 8 - 23 mg/dL [facility] Creatinine 0.62 0.50 - 1.00 mg/dL [facility] Calcium 8.4(L) 8.8 - 10.2 mg/dL [facility] Sodium 140 135 - 148 mmol/L [facility] Potassium 3.5 3.5 - 5.3 mmol/L [facility] Chloride 105 92 - 108 mmol/L [facility] eGFR (2020 CKD-EPI) 92 >=60 ml/min/1.7 3m2 [facility] Comment: The estimated glomerular filtration rate (eGFR) was calculated using the CKD-EPI 2020 creatinine equation, which does not include race as a factor. This equation is validated in individuals 18 years of age and older, and eGFR is normalized to a body surface area of 1.73m^2. AnGap 13 8 - 16 mmol/L [facility] Blood 10/12/2023 6:25 AM CDT 10/12/2023 6:33 AM CDT Lucian Matthews MD LABORATORY Performing Organization Address City/State/[facility] Co de Phone Number [facility] [address] [address] * XR ANKLE RIGHT 3 V AP/OBL/LAT* [...] evaluation. Reading Radiologist: Vasu Green Nely Sandoval APRN, WELDING PROCESS ENGINEER RAD XRAY * XR KNEE LEFT 3 VIEWS* (10/11/2023 9:36 AM CDT) Anatomical Region Laterality Modality Lower Extremity Computed Radiogr aphy 10/11/2023 9:44 AM CDT Impressions 10/11/2023 9:45 AM CDT IMPRESSION: 1. No acute fracture is identified. 2. Osteoarthritis. Reading Radiologist: Vasu Green Narrative 10/11/2023 9:45 AM CDT Indication: s/p FCI. knee pain with ROM ?? Comparison: None FINDINGS: No acute fracture is identified. 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 Small knee joint effusion. Prominent bone spur along the superior aspect of the patella, which may be due to remote trauma. Procedure Note Vasu Green MD - 10/11/2023 Indication: s/p FCI. knee pain with ROM Comparison: None FINDINGS: No acute fracture is identified. Tricompartmentalosteoarthritis, most pronounced in the medial compartment where there ismoderate osteoarthritis. Small knee joint effusion. Prominent bone spuralong the superior aspect of the patella, which may be due to remotetrauma. IMPRESSION IMPRESSION: 1. No acute fracture is identified. 2. Osteoarthritis. Reading Radiologist: Vasu Green Nely K Sokomwuyoh AIRPORT RAMP AGENT, WELDING PROCESS ENGINEER RAD XRAY * CT CHEST NO IV [...] Reading Resident: Zurdo Monsivais Nely Sandoval APRN, WELDING PROCESS ENGINEER RAD CT B YASSINE * MRSA SURVEILLANCE SCREEN (10/11/2023 4:05 AM CDT) Final Report No MRSA isolated. [facility] Swab NASAL STRUCTURE / Unknown 10/11/2023 4:05 AM CDT 10/11/2023 7:23 AM CDT Gautam Cook MD LAB MICROBIOLOGY [facility] [address] [address] * XR PELVIS AP* (10/10/2023 11:38 PM [...] hyoid bone horn (best seen on series 64572, image #28), likely representing fracture. Additionally, there may be subtle widening of the right cricoarytenoid joint (series 11936, image 22). Also, irregularities of the posterior [...] the head to a level near the [place]. ??3D reconstructions and multiplanar 2D image reformations were performed and reviewed by the Radiologist using the [employer]a workstation, and these images were archived in [...] into thehead to a level near the [place]. 3D reconstructions andmultiplanar 2D image reformations were performed and reviewed by theRadiologist using the [employer]a workstation, and these images were archivedin the [...] hyoid bone horn (best seen on series [id number], image #28), likely representing fracture. Additionally, there may be subtle widening of the right cricoarytenoid joint (series [id number], image 22). Also, irregularities of the posterior [...] the head to a level near the [place]. ??3D reconstructions and multiplanar 2D image reformations were performed and reviewed by the Radiologist using the [employer]a workstation, and these images were archived in [...] into thehead to a level near the [place]. 3D reconstructions andmultiplanar 2D image reformations were performed and reviewed by theRadiologist using the [employer]a workstation, and these images were archivedin the [...] Barrientos Reading Resident: Shannon Martin Narrative 10/11/2023 2:20 AM [...] 10:21 PM CDT) LIGHT GREEN TUBE Stored [facility] Comment:Green tubes ([facility] Heparin) are stored in the lab for 3 days from the collection date. Blood 10/10/2023 10:2 1 PM CDT 10/10/2023 10:32 PM CDT Gautam Cook MD LABORATORY Performing Organization Address City/[facility]/ZIP Co de Phone Number [facility] [address] [address] * EXTRA TUBE - SST (10/10/2023 10:21 PM CDT) SST TUBE Stored [facility] Comment:SST tubes (Serum Sep arator) are stored in the lab for 3 days from the collection date. Blood 10/10/2023 10:2 1 PM CDT 10/10/2023 10:32 PM CDT Gautam Cook MD LABORATORY Performing Organization Address [facility] Co de Phone Number [facility] [address] [address] * (ABNORMAL) ED CHEMISTRY LABS(NA,K,CL,CO2,GLU,CREAT,CA-IONIZED,ANION GAP) (10/10/2023 10:21 PM CDT) Sodium 140 135 - 148 mmol/L [facility] Chloride 102 92 - 108 mmol/L [facility] AnGap 14 8 - 16 mmol/L [facility] Glucose 125(H) 70 - 100 mg/dL [facility] ICA, Actual 4.54 4.40 - 5.20 mg/dL [facility] ICA, pH Corrected 4.67 4.40 - 5.20 mg/dL [facility] Creatinine 0.92 0.50 - 1.00 mg/dL [facility] BICARB 24 22 - 26 mEq/L [facility] eGFR (2020 CKD-EPI) 65 >=60 ml/min/1.7 3m2 [facility] Comment: The estimated glomerular filtration rate (eGFR) was calculated using the CKD-EPI 2020 creatinine equation, which does not include race as a factor. This equation is validated in individuals 18 years of age and older, and eGFR is normalized to a body surface area of 1.73m^2. Potassium 3.6 3.5 - 5.3 mmol/L [facility] Blood 10/10/2023 10:2 1 PM CDT 10/10/2023 10:33 PM CDT Gautam Cook MD LABORATORY Performing Organization Address City/[facility]/ZIP Co de Phone Number [facility] [address] [address] * (ABNORMAL) CBC WITH PLTS/AUTO DIFF (10/10/2023 10:21 PM CDT) WBC 9.42 4.00 - 10.00 k/cmm [facility] RBC 4.04 3.90 - 5.20 m/cmm [facility] Hgb 12.3 11.5 - 15.7 g/dL [facility] Hematocrit 37.3 34.0 - 45.0 % [facility] MCV 92.3 80.0 - 100.0 fL [facility] MCH 30.4 25.0 - 32.0 pg [facility] MCHC 33.0 31.0 - 36.0 g/dL [facility] RDW 13.2 11.5 - 14.5 % [facility] Plt 224 150 - 400 k/cmm [facility] MPV 10.0 6.5 - 12.5 fL [facility] Automated Abs Neutrophil 8.05(H) 1.70 - 6.50 k/cmm [facility] Comment:Preliminary ANC, Fin al Result to Follow Abs Immature Granulocyte 0.06 0.00 - 0.09 k/cmm [facility] Comment:The Immature Granulo cyte Absolute count contains metamyelocytes and myelocytes. Abs Neutrophil 8.05(H) 1.70 - 6.50 k/cmm [facility] Abs Lymphocyte 0.55(L) 0.80 - 4.00 k/cmm [facility] Abs Monocyte 0.74 0.20 - 1.00 k/cmm [facility] Abs Eosinophil 0.00 0.00 - 0.60 k/cmm [facility] Abs Basophil 0.02 0.00 - 0.20 k/cmm [facility] Blood 10/10/2023 10:2 1 PM CDT 10/10/2023 10:39 PM CDT Gautam Cook MD LABORATORY Performing Organization Address City/[facility]/ZIP Co de Phone Number [facility] [address] [address] * PROTHROMBIN (PT) & INR (10/10/2023 10:21 PM CDT) PT 12.3 9.0 - 12.5 sec [facility] INR 1.1 0.8 - 1.1 [facility] Comment: Warfarin Therapeutic Range: Standard Intensity: 2.0 - 3.0 High Intensity: 2.5 - 3.5 Blood 10/10/2023 10:2 1 PM CDT 10/10/2023 10:39 PM CDT Gautam Cook MD LABORATORY Performing Organization Address City/[facility]/ZIP Co de Phone Number [address] [address] * PRECAUTIONARY TUBE (10/10/2023 10:21 PM CDT) Prec Tube Precautionary Blood Bank Specimen Received. [facility] Blood 10/10/2023 10:2 1 PM CDT 10/10/2023 10:57 PM CDT Gautam Cook MD LAB TRANSFUSION SE RVICES Performing Organization Address City/[facility] Co de Phone Number [address] [address] * XR CHEST OUTSIDE FILMS (10/10/2023 8:17 PM CDT) Elliott AlbrightSilent-Scheduler - 10/12/2023 6:28 AM CDT Outside Film Only Outside Provider RAD OUTSIDE FILMS * XR LOWER EXTREMITY OUTSIDE FILMS (10/10/2023 7:38 PM CDT) Only the most recent of2 resultswithin the time period is included. Santana Miranda Hjlp-Vmnclk-Gzelrdzct - 10/12/2023 6:28 AM CDT Outside Film Only Outside Provider RAD OUTSIDE FILMS * CT SPINE OUTSIDE FILMS (10/10/2023 7:10 PM CDT) Only the most recent of2 resultswithin the time period is included. Narrative User, [id number]-Dmtrhn-[id number] - 10/12/2023 6:29 AM CDT Outside Film Only Outside Provider RAD OUTSIDE FILMS from Last 3 Months Advance Directives For more information, please contact: [phone] * Full Code (Latest Code Status on File) Date Activated Date Inactivated Comments 10/11/2023 3:55 AM 10/19/2023 9:39 PM Question Answer Comments Does the Patient have prefer ences regarding life sustaining measures (these options only apply when the patient has a pulse): No Discussed Code Status With Whom? Not discussed Care Teams Property Caretaker Relationship Specialty Start Date End Date Devyn Holden MD [facility] [address] [place] [address] PCP - General Family Medicine 10/19/23 Galya Murillo, ARTILLERY MAINTENANCE SUPERVISOR [facility] [address] [place] [id number] Speech Pathologist Speech Pathology 10/19/23
--- OUTSIDE RECORDS SUMMARY | 2023-11-27 13:01 | XMS_ITS | Clinical Summary ---
Author Organization [employer] Address [address] [place] [address] Phone Care Team Providers Care Motorcycle Deliverer Name Role Phone Devyn Holden MD Primary Care Provider [phone] Gayla Murillo COMMERCIAL LEASING AGENT [employer] Unavailable [phone] Source Comments [employer] is fully rolled out on [employer]. Last update 09/15/08.[employer] Allergies Active Allergy Reactions Criticality Noted Date [...] Problems Problem Noted Date Diagnosed Date Pneumomediastinum ([facility]) 10/11/2023 Blunt trauma of neck, initial encounter 10/11/19 Blunt trauma of neck, subsequent encounter 10/10 Encounters Date Type Department Care Team Description 10/29/2023 12:37 PM CDT - 10/29/2023 11:59 PM CDT [facility] En[facility] [address] [address] Francheska Sequeira, Martin Torres MD Wicktor, Lisa A, COMMERCIAL LEASING AGENT [facility] Discharge Disposition: Discharged to home or self care (routine discharge) 10/29/2023 Travel 10/21/2023 Pharmacy Prior Authorization [facility] [address] [place] [address] Martin Moura MD 10/19/2023 Documentation Only [facility] [address] Smiley MD 10/14/2023 [facility] [place] [phone] Aramis Vanessa DO 10/13/2023 Orders Only Unspecified Department [place] Unknown, Provider 10/12/2023 Orders Only Unspecified Department [place] Unknown, Provider 10/12/2023 Orders Only [facility] [address] [address] Mariajose Camarillo MD Blunt trauma of neck, subsequent encounter (Primary Dx); Pneumomediastinum ([facility]) 10/12/2023 Orders Only Unspecified Department [place] Unknown, Provider 10/12/2023 Orders Only [facility] Film Room [facility] Radiology Department PEGGY [address] [place] [address] Provider, Outside Referral of patient (Primary Dx) 10/12/2023 Orders Only Unspecified Department [place] Unknown, Provider 10/11/2023 Orders Only Unspecified Department [place] Unknown, Provider 10/10/2023 10:04 PM CDT - 10/19/2023 6:39 PM CDT Hospital Encounter [facility] Surgery/Trauma/Ne uro 3 [address] [place] [address] Gautam Cook MD Schmitz, MD Martell Davies Michael J, MD Pneumomediastinum ([facility]) Discharge Disposition: Discharged to home or self care (routine discharge) 10/10/2023 Travel from Last 3 Months Social [...] PROTOCOL 1966 Osteoporosis Screening (Dexa Scan) 2012 Imm: DTaP/Tdap (2 - Td or Tdap) 05/07/2022 04/09/2022 Imm: COVID-19 ( season) 2023 02/13/2023, 01/28/2022, 11/03/2021, Additional history exists Imm: Flu (#1) 12/13/2023 01/11/2018, 02/11, 12/31/2016, Additional history exists Imm: Zoster Completed 05/26/2021, 02/13/2021 Imm: Pneumonia greater than 65 years Completed 04/09/2022, 03/20/2020 Imm: HPV Aged Out No longer eligi ble based on patient's age to complete this topic Imm: HepA Aged Out No longer eligi ble based on patient's age to complete this topic Imm: HepB Aged Out No longer eligi ble based on patient's age to complete this topic Imm: Hib Aged Out No longer eligi ble based on patient's age to complete this topic Imm: Meningitis Aged Out No longer el igible based on patient's age to complete this [...] aspiration. Comparison: Modified barium swallow dated 10/16/2023. [place] protocol was followed. Findings: A modified barium [...] aspiration. Comparison: Modified barium swallow dated 10/16/2023. [place] protocol was followed. Findings: A modified barium [...] POC Glucose 110(H) 70 - 100 mg/dL [facility] Blood 10/17/2023 5:59 AM CDT Gautam Cook MD LABORATORY [facility] [address] [place] [address], [place] * XR ABDOMEN 1 VIEW* (10/16/2023 [...] coiled in the esophagus outside of the dufup-sk-ckoa. Reading Radiologist: Vasu Green Narrative 10/16/2023 6:16 [...] coiled in the esophagus outside of the nxpnl-yb-juck. Reading Radiologist: Vasu Green Martin Moura MD RAD XRAY * (ABNORMAL) TRANSFERRIN (INCLUDES TIBC) (10/14/2023 7:13 AM CDT) [facility] Transferrin 170(L) 200 - 360 mg/dL [facility] IBC 253(L) 298 - 536 mcg/dL [facility] Iron Saturation Percent 12(L) 20 - 50 % [facility] Blood 10/14/2023 7:13 AM CDT 10/14/2023 7:33 AM CDT Martin Moura MD LABORATORY [facility] [address] [address] * (ABNORMAL) PANEL BASIC METABOLIC (BMP) (10/14/2023 7:13 AM CDT) Only the most recent of2 resultswithin the time period is included. CO2 24 22 - 30 mmol/L [facility] Glucose 117(H) 70 - 100 mg/dL [facility] BUN 8 8 - 23 mg/dL [facility] Creatinine 0.55 0.50 - 1.00 mg/dL [facility] Calcium 8.9 8.8 - 10.2 mg/dL [facility] Sodium 141 135 - 148 mmol/L [facility] Potassium 3.6 3.5 - 5.3 mmol/L [facility] Chloride 106 92 - 108 mmol/L [facility] AnGap 11 8 - 16 mmol/L [facility] eGFR (2020 CKD-EPI) 95 >=60 ml/min/1.7 3m2 [facility] Comment: The estimated glomerular filtration rate (eGFR) was calculated using the CKD-EPI 2020 creatinine equation, which does not include race as a factor. This equation is validated in individuals 18 years of age and older, and eGFR is normalized to a body surface area of 1.73m^2. Blood 10/14/2023 7:13 AM CDT 10/14/2023 7:33 AM CDT Martin Moura MD LABORATORY Performing Organization Address [facility] [place] de Phone Number [facility] [address] [address] * (ABNORMAL) IRON (10/14/2023 7:13 AM CDT) Iron 31(L) 35 - 145 mcg/dL [facility] Blood 10/14/2023 7:13 AM CDT 10/14/2023 7:33 AM CDT Martin Moura MD LABORATORY Performing Organization Address [facility] Co de Phone Number [facility] [address] [address] * (ABNORMAL) FERRITIN (10/14/2023 7:13 AM CDT) Ferritin 400.0(H) 13.0 - 150.0 ng/mL [facility] Comment: Test Performed by: [facility] [address] [place] [address] Blood 10/14/2023 7:13 AM CDT 10/14/2023 7:33 AM CDT Martin Moura MD LABORATORY Performing Organization Address [facility]/ZIP Co de Phone Number [facility] [address] [address] * (ABNORMAL) CBC WITH PLATELET (10/14/2023 7:13 AM CDT) Only the most recent of2 resultswithin the time period is included. WBC 3.20(L) 4.00 - 10.00 k/cmm [facility] RBC 3.67(L) 3.90 - 5.20 m/cmm [facility] Hgb 11.1(L) 11.5 - 15.7 g/dL [facility] Hematocrit 34.1 34.0 - 45.0 % [facility] MCV 92.9 80.0 - 100.0 fL [facility] MCH 30.2 25.0 - 32.0 pg [facility] MCHC 32.6 31.0 - 36.0 g/dL [facility] RDW 13.1 11.5 - 14.5 % [facility] Plt 183 150 - 400 k/cmm [facility] MPV 10.4 6.5 - 12.5 fL [facility] Blood 10/14/2023 7:13 AM CDT 10/14/2023 7:33 AM CDT Martin Moura MD LABORATORY Performing Organization Address [facility] Co de Phone Number [facility] [address] [address] * PHOSPHORUS (10/14/2023 7:11 AM CDT) Only the most recent of2 resultswithin the time period is included. Pathologist [facility] Phosphorus 3.6 2.5 - 4.5 mg/dL [facility] Blood 10/14/2023 7:11 AM CDT 10/14/2023 12:48 PM CDT Martin Moura MD LABORATORY Performing Organization Address [place]/[facility]/ZIP Co de Phone Number [facility] [address] [address] * MAGNESIUM (10/13/2023 6:39 AM CDT) Magnesium 1.9 1.6 - 2.4 mg/dL [facility] Blood 10/13/2023 6:39 AM CDT 10/13/2023 6:55 AM CDT Vasu Argueta APRN, CNP LABORATORY Performing Organization Address [place]/[facility] Co de Phone Number [facility] [address] [address] * TELEMETRY STRIPS (10/13/2023 2:47 AM CDT) Only the most recent of5 resultswithin the time period is included. Narrative 10/13/2023 2:47 AM CDT Ordered by an unspecified provider. Provider Unknown RAD ECHO * ICU MAGNESIUM (10/12/2023 6:25 AM CDT) Magnesium 2.0 1.6 - 2.4 mg/dL [facility] Blood 10/12/2023 6:25 AM CDT 10/12/2023 6:33 AM CDT Lucian Matthews MD LABORATORY Performing Organization Address [place]/[facility] Co de Phone Number [facility] [address] [address] * ICU PHOSPHORUS (10/12/2023 6:25 AM CDT) Phosphorus 2.9 2.5 - 4.5 mg/dL [facility] Blood 10/12/2023 6:25 AM CDT 10/12/2023 6:33 AM CDT Lucian Matthews MD LABORATORY Performing Organization Address [place]/[facility]/ZIP Co de Phone Number [facility] [address] [address] * (ABNORMAL) ICU CBC WITH PLATELET (10/12/2023 6:25 AM CDT) Only the most recent of2 resultswithin the time period is included. WBC 6.19 4.00 - 10.00 k/cmm [facility] RBC 3.64(L) 3.90 - 5.20 m/cmm [facility] Hgb 11.4(L) 11.5 - 15.7 g/dL [facility] Hematocrit 33.7(L) 34.0 - 45.0 % [facility] MCV 92.6 80.0 - 100.0 fL [facility] MCH 31.3 25.0 - 32.0 pg [facility] MCHC 33.8 31.0 - 36.0 g/dL [facility] RDW 13.2 11.5 - 14.5 % [facility] Plt 170 150 - 400 k/cmm [facility] MPV 10.1 6.5 - 12.5 fL [facility] Blood 10/12/2023 6:25 AM CDT 10/12/2023 6:34 AM CDT Lucian Matthews MD LABORATORY [facility] [address] [address] * (ABNORMAL) ICU PANEL BASIC METABOLIC (BMP) (10/12/2023 6:25 AM CDT) Only the most recent of2 resultswithin the time period is included. CO2 22 22 - 30 mmol/L [facility] Glucose 88 70 - 100 mg/dL [facility] BUN 14 8 - 23 mg/dL [facility] Creatinine 0.62 0.50 - 1.00 mg/dL [facility] Calcium 8.4(L) 8.8 - 10.2 mg/dL [facility] Sodium 140 135 - 148 mmol/L [facility] Potassium 3.5 3.5 - 5.3 mmol/L [facility] Chloride 105 92 - 108 mmol/L [facility] eGFR (2020 CKD-EPI) 92 >=60 ml/min/1.7 3m2 [facility] Comment: The estimated glomerular filtration rate (eGFR) was calculated using the CKD-EPI 2020 creatinine equation, which does not include race as a factor. This equation is validated in individuals 18 years of age and older, and eGFR is normalized to a body surface area of 1.73m^2. AnGap 13 8 - 16 mmol/L [facility] Blood 10/12/2023 6:25 AM CDT 10/12/2023 6:33 AM CDT Lucian Matthews MD LABORATORY [facility] [address] [address] * XR ANKLE RIGHT 3 V AP/OBL/LAT* [...] Narrative 10/11/2023 9:44 AM CDT Indication: s/p usp. Rright ankle swelling and pain with ROM ?? Comparison: None FINDINGS: No acute fracture is identified at the ankle. On the oblique view of the ankle, there is a punctate density visualized near the first TMT joint at the midfoot. Inferior calcaneus enthesophyte. Mild osteoarthritis throughout the hindfoot and partially visualized midfoot. Procedure Note Vasu Green MD - 10/11/2023 Indication: s/p usp. Rright ankle swelling and pain with ROM [...] Reading Radiologist: Vasu Green Nely Sandoval APRN SONOGRAM TECHNICIAN RAD XRAY * XR KNEE LEFT 3 VIEWS* (10/11/2023 9:36 AM CDT) Anatomical Region Laterality Modality Lower Extremity Computed Radiogr aphy 10/11/2023 9:44 AM CDT Impressions 10/11/2023 9:45 AM CDT IMPRESSION: 1. No acute fracture is identified. 2. Osteoarthritis. Reading Radiologist: Vasu Green Narrative 10/11/2023 9:45 AM CDT Indication: s/p CHCF. knee pain with ROM ?? Comparison: None FINDINGS: No acute fracture is identified. 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 Small knee joint effusion. Prominent bone spur along the superior aspect of the patella, which may be due to remote trauma. Procedure Note Vasu Green MD - 10/11/2023 Indication: s/p CHCF. knee pain with ROM Comparison: None FINDINGS: No acute fracture is identified. Tricompartmentalosteoarthritis, most pronounced in the medial compartment where there ismoderate osteoarthritis. Small knee joint effusion. Prominent bone spuralong the superior aspect of the patella, which may be due to remotetrauma. IMPRESSION IMPRESSION: 1. No acute fracture is identified. 2. Osteoarthritis. Reading Radiologist: Vasu Green Nely Sandoval APRN SONOGRAM TECHNICIAN RAD XRAY * CT CHEST NO IV [...] Reading Resident: Zurdo Monsivais Nely Sandoval APRN, SONOGRAM TECHNICIAN RAD CT B YASSINE * MRSA SURVEILLANCE SCREEN (10/11/2023 4:05 AM CDT) Final Report No MRSA isolated. [facility] Swab NASAL STRUCTURE / Unknown 10/11/2023 4:05 AM CDT 10/11/2023 7:23 AM CDT Gautam Cook MD LAB MICROBIOLOGY [facility] [address] [place] [address] * XR PELVIS AP* (10/10/2023 11:38 PM [...] hyoid bone horn (best seen on series [address], image #28), likely representing fracture. Additionally, there may be subtle widening of the right cricoarytenoid joint (series [id number], image 22). Also, irregularities of the posterior [...] Reading Radiologist: Duncan Schumacher Resident: Shannon Martin 10/11/2023 6:21 AM CDT [...] the head to a level near the [place]. ??3D reconstructions and multiplanar 2D image reformations were performed and reviewed by the Radiologist using the [employer] workstation, and these images were archived in [...] into thehead to a level near the [place]. 3D reconstructions andmultiplanar 2D image reformations were performed and reviewed by theRadiologist using the [employer] workstation, and these images were archivedin the [...] Raad Barrientos Resident: Shannon Martin Narrative 10/11/2023 2:15 AM [...] hyoid bone horn (best seen on series 53436, image #28), likely representing fracture. Additionally, there may be subtle widening of the right cricoarytenoid joint (series [id number], image 22). Also, irregularities of the posterior [...] the head to a level near the [place]. ??3D reconstructions and multiplanar 2D image reformations were performed and reviewed by the Radiologist using the [employer] workstation, and these images were archived in [...] into thehead to a level near the [place]. 3D reconstructions andmultiplanar 2D image reformations were performed and reviewed by theRadiologist using the [employer] workstation, and these images were archivedin the [...] 10:21 PM CDT) LIGHT GREEN TUBE Stored [facility] Comment:Green tubes ([place] Heparin) are stored in the lab for 3 days from the collection date. Blood 10/10/2023 10:2 1 PM CDT 10/10/2023 10:32 PM CDT Gautam Cook MD LABORATORY Performing Organization Address [facility] Co de Phone Number [facility] [address] [address] * EXTRA TUBE - SST (10/10/2023 10:21 PM CDT) SST TUBE Stored [facility] Comment:SST tubes (Serum Sep arator) are stored in the lab for 3 days from the collection date. Blood 10/10/2023 10:2 1 PM CDT 10/10/2023 10:32 PM CDT Gautam Cook MD LABORATORY Performing Organization Address [facility]/State/ZIP Co de Phone Number [facility] [address] [address] * (ABNORMAL) ED CHEMISTRY LABS(NA,K,CL,CO2,GLU,CREAT,CA-IONIZED,ANION GAP) (10/10/2023 10:21 PM CDT) Sodium 140 135 - 148 mmol/L [facility] Chloride 102 92 - 108 mmol/L [facility] AnGap 14 8 - 16 mmol/L [facility] Glucose 125(H) 70 - 100 mg/dL [facility] ICA, Actual 4.54 4.40 - 5.20 mg/dL [facility] ICA, pH Corrected 4.67 4.40 - 5.20 mg/dL [facility] Creatinine 0.92 0.50 - 1.00 mg/dL [facility] BICARB 24 22 - 26 mEq/L [facility] eGFR (2020 CKD-EPI) 65 >=60 ml/min/1.7 3m2 [facility] Comment: The estimated glomerular filtration rate (eGFR) was calculated using the CKD-EPI 2020 creatinine equation, which does not include race as a factor. This equation is validated in individuals 18 years of age and older, and eGFR is normalized to a body surface area of 1.73m^2. Potassium 3.6 3.5 - 5.3 mmol/L [facility] Blood 10/10/2023 10:2 1 PM CDT 10/10/2023 10:33 PM CDT Gautam Cook MD LABORATORY [facility] [address] [address] * (ABNORMAL) CBC WITH PLTS/AUTO DIFF (10/10/2023 10:21 PM CDT) WBC 9.42 4.00 - 10.00 k/cmm [facility] RBC 4.04 3.90 - 5.20 m/cmm [facility] Hgb 12.3 11.5 - 15.7 g/dL [facility] Hematocrit 37.3 34.0 - 45.0 % [facility] MCV 92.3 80.0 - 100.0 fL [facility] MCH 30.4 25.0 - 32.0 pg [facility] MCHC 33.0 31.0 - 36.0 g/dL [facility] RDW 13.2 11.5 - 14.5 % [facility] Plt 224 150 - 400 k/cmm [facility] MPV 10.0 6.5 - 12.5 fL [facility] Automated Abs Neutrophil 8.05(H) 1.70 - 6.50 k/cmm [facility] Comment:Preliminary ANC, Fin al Result to Follow Abs Immature Granulocyte 0.06 0.00 - 0.09 k/cmm [facility] Comment:The Immature Granulo cyte Absolute count contains metamyelocytes and myelocytes. Abs Neutrophil 8.05(H) 1.70 - 6.50 k/cmm [facility] Abs Lymphocyte 0.55(L) 0.80 - 4.00 k/cmm [facility] Abs Monocyte 0.74 0.20 - 1.00 k/cmm [facility] Abs Eosinophil 0.00 0.00 - 0.60 k/cmm [facility] Abs Basophil 0.02 0.00 - 0.20 k/cmm [facility] Blood 10/10/2023 10:2 1 PM CDT 10/10/2023 10:39 PM CDT Gautam Cook MD LABORATORY [facility] [address] [address] * PROTHROMBIN (PT) & INR (10/10/2023 10:21 PM CDT) PT 12.3 9.0 - 12.5 sec [facility] INR 1.1 0.8 - 1.1 [facility] Comment: Warfarin Therapeutic Range: Standard Intensity: 2.0 - 3.0 High Intensity: 2.5 - 3.5 Blood 10/10/2023 10:2 1 PM CDT 10/10/2023 10:39 PM CDT Gautam Cook MD LABORATORY [facility] [place] [address] * PRECAUTIONARY TUBE (10/10/2023 10:21 PM CDT) Prec Tube Precautionary Blood Bank Specimen Received. [facility] Blood 10/10/2023 10:2 1 PM CDT 10/10/2023 10:57 PM CDT Gautam Cook MD LAB TRANSFUSION SE RVICES [facility] [address] [address] * XR CHEST OUTSIDE FILMS (10/10/2023 8:17 PM CDT) Narrative User, [id number] - 10/12/2023 6:28 AM CDT Outside Film Only Outside Provider RAD OUTSIDE FILMS * XR LOWER EXTREMITY OUTSIDE FILMS (10/10/2023 7:38 PM CDT) Only the most recent of2 resultswithin the time period is included. Narrative User, [id number] - 10/12/2023 6:28 AM CDT Outside Film Only Outside Provider RAD OUTSIDE FILMS * CT SPINE OUTSIDE FILMS (10/10/2023 7:10 PM CDT) Only the most recent of2 resultswithin the time period is included. Narrative User, [id number] - 10/12/2023 6:29 AM CDT Outside Film Only Outside Provider RAD OUTSIDE FILMS from Last 3 Months Advance Directives For more information, please contact: [phone] * Full Code (Latest Code Status on File) Date Activated Date Inactivated Comments 10/11/2023 3:55 AM 10/19/2023 9:39 PM Question Answer Comments Does the Patient have prefer ences regarding life sustaining measures (these options only apply when the patient has a pulse): No Discussed Code Status With Whom? Not discussed Care Teams Motorcycle Deliverer Relationship Specialty Start Date End Date Devyn Holden MD [facility] [address] [place] [address] PCP - General Family Medicine 10/19/23 Gayla Murillo, COMMERCIAL LEASING AGENT [facility] [address] [place] [address] Speech Pathologist Speech Pathology 10/19/23
--- OUTSIDE RECORDS SUMMARY | 2023-11-27 13:01 | XMS_ITS | Encounter Summary ---
Author Organization [facility] Address [address] [place] [address]. [place] [address] Care Team Providers Care Child Specialist Name Role Phone Unavailable Primary Care Provider Unavailabl e Encounter Details Date Type Department Care Team (Late st Contact Info) Description 08/24/2010 5:36 PM CDT [facility] in [address] [phone] Rashad Bustos MD [address] [place] [phone] Social History Tobacco Use Types Packs/Day Years Used Date Smoking Tobacco: Former Alcohol Use Standard Drinks/Week Comments Yes 0 (1 standard drink = 0.6 oz pur e alcohol) occasional Sex and Gender Information Value Date Recorded Sex Assigned at Not on file Gender Identity Not on file Sexual Orientation Not on file documented as of this encounter Progress Notes * Jacoby Gonzales MD - 08/25/2010 7:02 AM CDT PROCEDURE/OPERATIVE REPORT Date of Procedure: 08/24/2010 PREPROCEDURE DIAGNOSIS: 1. Left hip dislocation. POSTPROCEDURE DIAGNOSIS: 1. Left hip dislocation. PROCEDURE: Closed reduction left hip replacement dislocation. SURGEON: Janet ANESTHESIA: Conscious sedation. ESTIMATED BLOOD LOSS: Zero INDICATIONS: Zulma is a 65-year-old woman who underwent a left total hip arthroplasty approximately 13 or 14 years ago. Underwent revision of this total hip arthroplasty a year and a half to 2 years ago. Subsequently has had revisions beginning approximately a year ago and has worn an abduction brace for approximately 4 months. She did not have a dislocation since then until this time when they were camping. She denies any numbness or tingling. We discussed risks, benefits and alternatives to relocation of her hip with her. She understands these and desires to proceed with this procedure. PROCEDURE: Patient was given adequate conscious sedation. Once she was adequately sedated with distal traction and hip flexion, the hip was easily reduced. There was a palpable sensation felt as her hip was put back into place. X-rays were obtained post reduction which demonstrated the hip replacement to be back in position. Patient was then awakened and discussed follow up. She is to continue with an abduction pillow through the night while she is camping and then go back into her abduction brace after she returns home. She needs to follow up with Dr. 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 Jacoby Gonzales M.D. [facility]/dmd cc: documented in this encounter Plan of Treatment Not on file documented as of this encounter Visit Diagnoses Not on filedocumented in this encounter
--- OUTSIDE RECORDS SUMMARY | 2023-11-27 13:01 | XMS_ITS | Encounter Summary ---
Author Organization [place] Address [address] [place] [address] Care Team Providers Care Cnc Operator Machinist Name Role Phone Devyn Holden MD Primary Care Provider [phone] Reason for Visit * Reason Onset Date Comments Previsit 10/22/2023 Encounter Details Date Type Department Care Team (Late st Contact Info) Description 10/22/2023 PRE VISIT [facility] [address] [place] [address] Zulay Santizo MD [address] [place] [id number] Previsit Social History Tobacco Use Types Packs/Day Years Used Date Smoking Tobacco: Former Alcohol Use Standard Drinks/Week Comments Yes 0 (1 standard drink = 0.6 oz pur e alcohol) occasional Sex and Gender Information Value Date Recorded Sex Assigned at Not on file Gender Identity Not on file Sexual Orientation Not on file documented as of this encounter Miscellaneous Notes * Telephone Encounter - Cecilia Babcock - 10/14/2023 3:00 PM CDT FUTURE VISIT INFORMATION FUTURE VISIT INFORMATION: Date: 10/22/23 Time: 10:30am [facility] [place] REFERRAL INFORMATION: Referring provider: Referring providers clinic: Reason for visit/diagnosis Hospital follow up, 10/21 at 10:30 AM. Spot is on hold RECORDS REQUESTED FROM: Clinic name Comments Records Status Imaging Status [facility] 10/10/23- Hospital Visit [facility] imaging 10/11/23- CT CHEST 10/10/23- CT CHEST + CT HEAD + CT NECK + XR CHEST [facility] 10/14/23- PENDING PACS [facility] 11/30/22- CT HEAD + DX CHEST + CT SPINE + CT LUMBAR SPINE + CT CHEST + CT HEAD + CT CERVI SPINECe 10/14/23 Pending PACS October 14, 2023 3:31 PM - Faxed a request to [facility] AND [facility] to push Image to [facility] PACS- Cecilia October 19, 2023 9:38 AM - Received image in pacs and attached it to patient- Cecilia documented in this encounter Plan of Treatment Not on file documented as of this encounter Visit Diagnoses Not on filedocumented in this encounter Care Teams Cnc Operator Machinist Relationship Specialty Start Date End Date Devyn Holden MD [facility] [address] [place] [address] PCP - General Family Practice 09/23/12 documented as of this encounter
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
--- OUTSIDE RECORDS SUMMARY | 2023-11-27 13:01 | XMS_ITS | Encounter Summary ---
Author Organization [facility] Address [address] [place] [address] Phone Care Team Providers Care Oil Well Services Supervisor Name Role Phone Devyn Holden MD Primary Care Provider [phone] Gayla Murillo LINE WALKER CCC Unavailable [phone] Encounter Details Date Type Department Care Team (Latest Contact Info) Description 10/29/2023 Travel Social History Tobacco Use Types Packs/Day [...] on filedocumented in this encounter Care Teams Oil Well Services Supervisor Relationship Specialty Start Date End Date Devyn Holden MD [facility] [address] [place] [address] PCP - General Family Medicine 10/19/23 Gayla Murillo, LINE WALKER [facility] [address] [place] [address] Speech Pathologist Speech Pathology 10/19/23 documented as of this encounter
--- OUTSIDE RECORDS SUMMARY | 2023-11-27 13:02 | XMS_ITS | Encounter Summary ---
Author Organization [facility] Address [address] [place] [address] Phone Care Team Providers Care Property Economist Name Role Phone Devyn Holden MD Primary Care Provider [phone] Gayla Murillo LICENSED INSURANCE SALES AGENT CCC Unavailable [phone] Encounter Details Date Type Department Care Team [...] on filedocumented in this encounter Care Teams Property Economist Relationship Specialty Start Date End Date Devyn Holden MD [facility] [address] [place] [address] PCP - General Family Medicine 10/19/23 Gayla Murillo, LICENSED INSURANCE SALES AGENT [facility] [address] [place] [address] Speech Pathologist Speech Pathology 10/19/23 documented as of this encounter
--- OUTSIDE RECORDS SUMMARY | 2023-11-27 13:02 | XMS_ITS | Encounter Summary ---
Author Organization [facility] Address [address] [place] [address] Phone Care Team Providers Care Warp Dresser Name Role Phone Devyn Holden MD Primary Care Provider [phone] Gayla Murillo TONGUE LINING STITCHER CCC Unavailable [phone] Encounter Details Date Type Department Care Team [...] on filedocumented in this encounter Care Teams Warp Dresser Relationship Specialty Start Date End Date Devyn Holden MD [facility] [address] [place] [address] PCP - General Family Medicine 10/19/23 Gayla Murillo, TONGUE LINING STITCHER [facility] [address] [place] [address] Speech Pathologist Speech Pathology 10/19/23 documented as of this encounter
--- OUTSIDE RECORDS SUMMARY | 2023-11-27 13:02 | XMS_ITS | Encounter Summary ---
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 Stool Color: yellow (10/17/23 06) Stool Consistency: liquid;watery (10/17/23599) Genitourinary Within Defined Limits Musculoskeletal Within Defined Limits Integumentary Assessment Within Defined Limits except for: Skin Assessment Integrity - see Avatar LDA documentation Patient Lines/Drains/Airways Status Active LDAs Name Placement date Placement time Site Days Peripheral IV 10/15/23 20 gauge;1 3/4 in length Anterior;Right Upper Arm 10/15/231955 -- 1 Feeding Tube Nostril (right) 10/11/231827 -- 6 Psychosocial Within Defined Limits * Nursing Assessment - Mónica Sequeira RN - 10/17/2023 6:08 AM CDT Nursing Assessment Head to Toe Head to Toe Assessment Shift Summary Shift SummaryNote D: Patient calm in bed resting.Denies pain.Tube feeding running.Independent with cares.Reports having discomfort on Right knee with swelling.Vane wrap on. A: Due medication given.Ice pack placed on left knee.Assisted to use BSC and having small amount ofdiarrhea. R: Patient rested between cares.Retaining feeds and voiding well.VSS P: Continue with plan of care and monitoring. Neurologic/Cognitive Within Defined Limits HEENT Assessment Within Defined Limits except for: Neck Symptoms: Tenderness Throat Symptoms: swallowing difficulty and sore Cardiac Assessment Within Defined Limits except for: Paint Mixer Hand - remote telemetry Pacemaker: Pacemaker: No Respiratory Within defined limits Neurovascular Assessment Within Defined Limits except for: Neurovascular LLE Sensation: Tenderness Gastrointestinal Within Defined Limits Stool (unmeasured): 1 (several overnight) (10/15/23 0600) Stool Amount: small (10/17/23 0000) Stool Color: yellow (10/17/23 0000) Stool Consistency: liquid;watery (10/17/23 0000) Genitourinary Within Defined Limits Musculoskeletal Assessment Within Defined Limits except for: Musculoskeletal Assessment: General Mobility: Generalized weaknessJoint Tenderness left - knee Integumentary Assessment Within Defined Limits except for: Skin Assessment Integrity - see Avatar LDA documentation Patient Lines/Drains/Airways Status Active LDAs Name Placement date Placement time Site Days Peripheral IV 10/15/23 20 gauge;1 3/4 in length Anterior;Right Upper Arm 10/15/231955 -- 1 Feeding Tube Nostril (right) 10/11/231827 -- 5 Psychosocial Within Defined Limits * Nursing Assessment - Heike Massey RN - 10/16/2023 10:39 PM CDT Nursing Assessment Head to Toe Head to Toe Assessment Shift Summary Pt mentions mild pain to knee, PRN tylenol provided. Requesting melatonin and trazodone at bedtime. Neurologic/Cognitive Within Defined Limits HEENT Assessment Within Defined Limits except for: Nose Symptoms: Feeding Tube - right Neck Symptoms: Tenderness Throat Symptoms: swallowing difficulty Cardiac Within Defined Limits Respiratory Within defined limits Neurovascular Within Defined Limits Gastrointestinal Within Defined Limits Stool (unmeasured): 1 (several overnight) (10/15/23599) Stool Amount: large (10/12/23599) Stool Color: brown (10/15/23599) Stool Consistency: liquid;watery (10/15/23599) Genitourinary Within Defined Limits Musculoskeletal Assessment Within Defined Limits except for: Musculoskeletal Assessment: General Mobility: Generalized weakness Range of Motion: LLE - mildly impaired and brace/immobilizer/splint/sling/cast Integumentary Assessment Within Defined Limits except for: Skin Assessment Color/Characteristics - bruised (ecchymotic) Integrity - see Avatar LDA documentation Patient Lines/Drains/Airways Status Active LDAs Name Placement date Placement time Site Days Peripheral IV 10/15/23 20 gauge;1 3/4 in length Anterior;Right Upper Arm 10/15/236 -- 1 Feeding Tube Nostril (right) 10/11/238 -- 5 Psychosocial Within Defined Limits * Utilization Management - Jaja Salazar, RN - 10/16/2023 4:50 PM CDT Per SEO EXPERT no longer meets IP criteria, documentation in chart indicating neck injury; noted concern for aerodigestive tract injury NPO. Plan for Swallow study 10/15. NG tube with TF. No message sent toprovider or CC. * Nursing Assessment - Miguelina Cooper RN - 10/16/2023 8:10 AM CDT Nursing Assessment Head to Toe Head to Toe Assessment Shift Summary Pt A/Ox4, able to make needs known, independent except for tubing, which she uses call light to askto have pump stopped when she wants to go for walks. Walks with FWW. Kj at bedside for pt comfortwhen ambulating in halls. NG placement confirmed to be in stomach per x-ray. Team mentioned switching to bolus feeds for discharge once TF placement confirmed to be in stomach. Miguelina Cooper, RN, 10/16/2023 7:23 PM Neurologic/Cognitive Within Defined Limits HEENT Assessment Within Defined Limits except for: Nose Symptoms: Feeding Tube - right Cardiac Within Defined Limits Respiratory Within defined limits Neurovascular Within Defined Limits Gastrointestinal Assessment Within Defined Limits except for: Additional GI Signs/Symptoms: diarrhea Comments: C/o having diarrhea for the past fwe days, but reports only 1x today Stool (unmeasured): 1 (several overnight) (10/15/23599) Stool Amount: large (10/12/23599) Stool Color: brown (10/15/23599) Stool Consistency: liquid;watery (10/15/23599) Genitourinary Within Defined Limits Musculoskeletal Within Defined Limits Integumentary Assessment Within Defined Limits except for: Skin Assessment Integrity - see Avatar LDA documentation Patient Lines/Drains/Airways Status Active LDAs Name Placement date Placement time Site Days Peripheral IV 10/15/23 20 gauge;1 3/4 in length Anterior;Right Upper Arm 10/15/23 1956 -- less than1 Feeding Tube Nostril (right) 10/11/23 1828 -- 5 Psychosocial Within Defined Limits * Nursing Assessment - Daisy Neely RN - 10/16/2023 5:25 AM CDT Nursing Assessment Head to Toe Head to Toe Assessment Shift Summary Pt is alert and orientated x4, able to make her needs known. Pt denies and numbness. Denies any dizziness. Pt ambulates to the bathroom independently. No acute changes this shift. Will continue with current POC. Daisy Neely RN, 10/16/2023 5:31 AM Neurologic/Cognitive Within Defined Limits Frequent Neuro Assessments have been documented in the flowsheets HEENT Assessment Within Defined Limits except for: Nose Symptoms: Feeding Tube - right Cardiac Assessment Within Defined Limits except for: Paint Mixer Hand - remote telemetry Respiratory Within defined limits [...] gauge;1 3/4 in length Anterior;Right Upper Arm 10/15/236 -- less than1 Feeding Tube Nostril (right) [...] 0850 -- 2 Feeding Tube Nostril (right) 10/11/231827 -- 3 Psychosocial Within Defined Limits * [...] 0850 -- 2 Feeding Tube Nostril (right) 10/11/231827 -- 3 Psychosocial Within Defined Limits * [...] brown (10/12/23 0600) Stool Consistency: watery (10/13/23 110) Genitourinary Within Defined Limits Musculoskeletal Within Defined [...] large (10/12/23 0600) Stool Color: brown (10/12/23 06) Stool Consistency: watery (10/13/23 1107) Genitourinary Within Defined Limits Musculoskeletal Within Defined Limits Comments: SBA Integumentary Within Defined Limits Patient Lines/Drains/Airways Status Active LDAs Name Placement date Placement time Site Days Peripheral IV 10/13/23 20 gauge Anterior;Left Antecubital 10/13/23 0850 -- less than 1 Feeding Tube Nostril (right) 10/11/23 1828 -- 2 Psychosocial Within Defined Limits * [...] Cardiac Assessment Within Defined Limits except for: Paint Mixer Hand - remote telemetry Respiratory Within defined limits [...] Cardiac Assessment Within Defined Limits except for: Paint Mixer Hand - remote telemetry Respiratory Within defined limits [...] Cardiac Assessment Within Defined Limits except for: Paint Mixer Hand - bedside telemetry Lead Monitored: Lead II ECG Rhythm: normal sinus rhythm Respiratory Within defined limits Comments: Desats with movements Neurovascular Assessment Within Defined Limits except for: Neurovascular LLE Sensation: Tenderness Neurovascular RLE Sensation: Tenderness Gastrointestinal Within Defined Limits Comments: On nutren 1.5 infusing at 45ml/hr with 100ml/hr flushes of water Q4 Stool (unmeasured): 1 (10/12/23 1734) Stool Amount: large (10/12/23 0600) Stool Color: brown (10/12/23 06) Stool Consistency: formed (10/12/23599) Genitourinary Within Defined [...] 10/11/232018 -- 1 Feeding Tube Nostril (right) 10/11/231827 -- 1 Psychosocial Within Defined Limits * Nursing Assessment - Ivette Hargrove RN - 10/12/2023 4:59 PM CDT Nursing [...] Cardiac Assessment Within Defined Limits except for: Paint Mixer Hand - remote telemetry Respiratory Within defined limits [...] Cardiac Assessment Within Defined Limits except for: Paint Mixer Hand - remote telemetry Respiratory Within defined limits [...] 20 gauge;1 3/4 in length Anterior;Right Forearm 10/11/23 2019 -- less than 1 Feeding Tube Nostril [...] Cardiac Assessment Within Defined Limits except for: Paint Mixer Hand - bedside telemetry Lead Monitored: Lead II [...] Peripheral IV 10/10/23 20 gauge Anterior;Right Antecubital 10/10/232205 -- less than 1 Psychosocial Within Defined Limits * Nursing Assessment - Margoth Bernard RN - 10/11/2023 12:00 PM CDT Nursing Assessment Head to Toe Head to Toe Assessment Shift Summary Shift Summary Neurologic/Cognitive Within Defined Limits HEENT Assessment Within Defined Limits except for: Neck Symptoms: Swelling, localized and tenderness Cardiac Assessment Within Defined Limits except for: Paint Mixer Hand - bedside telemetry Lead Monitored: Lead II [...] Peripheral IV 10/10/23 20 gauge Anterior;Right Antecubital 10/10/232205 -- less than 1 Psychosocial Within Defined Limits * Interval Note Provider - Deja Roth MD - 10/11/2023 9:31 AM CDT Brief ENT Note 6/10/[address] neck with radiology [...] a fracture. Flexible laryngoscopy was discussed with [facility] veneer sander Dr. Santizo who felt that the asymmetry [...] Cardiac Assessment Within Defined Limits except for: Paint Mixer Hand - bedside telemetry Lead Monitored: Lead II [...] Antecubital 10/10/236 -- less than 1 Psychosocial Within Defined Limits * Trauma Tertiary Exam - Lucian Matthews MD - 10/11/2023 7:50 AM CDT TRAUMA TERTIARY EXAM - MANAGER RECRUITING First Exam Zulma Courtney : 1945 Sex: female Subjective: patient awake and alert. Reports sore throat. Denies any difficulty breathing, chest pain, palpitations, nausea, vomiting, lightheadedness/dizziness Admit Date & Time: 10/10/2023 10:04 PM No past medical history on file. Mental Status Adequate for Exam: Yes Examiner: Nely Sandoval APRN, [employer]SP[employer] DRIVER, 10/11/2023 7:50 AM Primary Team: [facility] [...] respond yes above should be given the Irish or Swazi version of the Alcohol Use and Your health document found at this link: https://infooncall/Departments/TraumaServices/Alcoho lScreeningEducation/index.htm CAGE Screen: If patient answers Yes to 1 CAGE question, print and provide them with the Alcohol Use and Your Health document found at this link: https://[email or web address]/Departments/TraumaServices/AlcoholScreeningEduc ation/index.htm If patient answers Yes to 2 or more questions. Provide the Addiction Medicine Resources handout found at link below and place an Addiction Medicine Consult Order if patient is interested. [email or web address] [email or web address]/AlcoholScreeningEducation/[email or web address].htm 1. In the past year: Have you felt you should cut down on your drinking? no 2. In the past year: Have people annoyed you by criticizing your drinking? no 3. In the past year: Have you felt bad or guilty about your drinking? no 4. In the past year: Have you had an eye net technical architect first thing in the morning to steady [...] CFS >/= 7, consult Palliative Care Consult PRESIDING JUDGE for: PRESIDING JUDGE consult not indicated at this time *If patient meets criteria for an PRESIDING JUDGE consult, please order aspiration precautions Mental Health [...] on guard, watchful, or easily startled? 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 Discharge Plan: DC to Home and Pending therapist(s) recommendations. Nely Sandoval APRN, [employer]SP[employer] DRIVER 10/11/2023 07:50 FACULTY NOTE This was a shared visit with the ONIEL, Nely Beaver Jaime, on 10/11/23. I saw and evaluated the [...] Cardiac Assessment Within Defined Limits except for: Paint Mixer Hand - bedside telemetry ECG Rhythm: normal sinus [...] by Trevor Villasenor Scribe, 10/11/2023 1:26 AM IJoseph MD have reviewed the initial documentation provided by the bridgette and affirm that it is an accurate restatement of my dictated record of services. Signed: Joseph Ca MD, 01:26 10/11/2023 documented in this encounter Plan of Treatment Scheduled Referrals Name Type Priority Associated Diagnoses Orde r Schedule REFERRAL TO [facility] Referral Routine Blunt trauma of neck, subsequent encounter Ordered: 10/17/2023 documented as of this encounter Procedures Procedure Name Priority Date/Time Associated Diagnosis Comments POC GLUCOSE Routine 10/17/2023 5:59 AM CDT [...] aspiration. Comparison: Modified barium swallow dated 10/16/2023. Rice protocol was followed. Findings: A modified barium [...] aspiration. Comparison: Modified barium swallow dated 10/16/2023. Rice protocol was followed. Findings: A modified barium [...] (ABNORMAL) POC GLUCOSE (10/17/2023 5:59 AM CDT) POC Glucose 110(H) 70 - 100 mg/dL [facility] Blood 10/17/2023 5:59 AM CDT Gautam Cook MD LABORATORY [facility] [address] [place] [address], [place] * (ABNORMAL) POC GLUCOSE (10/16/2023 11:53 PM CDT) POC Glucose 108(H) 70 - 100 mg/dL [facility] Blood 10/16/2023 11:5 3 PM CDT Gautam Cook MD LABORATORY [facility] [address] [place] [address], [place] * XR ABDOMEN 1 VIEW* (10/16/2023 [...] coiled in the esophagus outside of the [id number]. Reading Radiologist: Vasu Green Narrative 10/16/2023 6:16 [...] coiled in the esophagus outside of the wiqma-is-[id number]. Reading Radiologist: Vasu Green Martin Moura MD [...] with injury to the larynx. Comparison: None. Rice protocol was followed. Findings: A modified barium [...] accident withinjury to the larynx. Comparison: None. Rice protocol was followed. Findings: A modified barium [...] Glucose 131(H) 70 - 100 mg/dL [facility] Blood 10/16/2023 6:10 AM CDT Gautam Cook MD LABORATORY Performing Organization Address City/[facility] Co de Phone Number [facility] [address] [place] [address], * (ABNORMAL) POC GLUCOSE (10/16/2023 12:16 AM CDT) POC Glucose 145(H) 70 - 100 mg/dL [facility] Blood 10/16/2023 12:1 6 AM CDT Gautam Cook MD LABORATORY [facility] [address] [place] [address], * (ABNORMAL) POC GLUCOSE (10/15/2023 6:08 PM CDT) POC Glucose 103(H) 70 - 100 mg/dL [facility] Blood 10/15/2023 6:08 PM CDT Gautam Cook MD LABORATORY [facility] [address] [place] [address], [place] * (ABNORMAL) POC GLUCOSE (10/15/2023 6:06 AM CDT) POC Glucose 117(H) 70 - 100 mg/dL [facility] Blood 10/15/2023 6:06 AM CDT Gautam Cook MD LABORATORY Performing Organization Address City/[facility]/ZIP Co de Phone Number [facility] POINT OF [facility] [address] [place] [address], [place] * (ABNORMAL) POC GLUCOSE (10/15/2023 12:22 AM CDT) POC Glucose 117(H) 70 - 100 mg/dL [facility] Blood 10/15/2023 12:2 2 AM CDT Gautam Cook MD LABORATORY Performing Organization Address City/[facility] Co de Phone Number [facility] [address] [place] [address], [place] * (ABNORMAL) POC GLUCOSE (10/14/2023 5:59 PM CDT) POC Glucose 110(H) 70 - 100 mg/dL [facility] Blood 10/14/2023 5:59 PM CDT Gautam Cook MD LABORATORY Performing Organization Address City/[facility]/ZIP Co de Phone Number [facility] [address] [place] [address], [place] * (ABNORMAL) POC GLUCOSE (10/14/2023 11:35 AM CDT) POC Glucose 111(H) 70 - 100 mg/dL [facility] Blood 10/14/2023 11:3 5 AM CDT Gautam Cook MD LABORATORY Performing Organization Address City/[facility] Co de Phone Number [facility] [address] [place] [address] * (ABNORMAL) TRANSFERRIN (INCLUDES TIBC) (10/14/2023 7:13 AM CDT) Transferrin 170(L) 200 - 360 mg/dL [facility] IBC 253(L) 298 - 536 mcg/dL [facility] Iron Saturation Percent 12(L) 20 - 50 % [facility] Blood 10/14/2023 7:13 AM CDT 10/14/2023 7:33 AM CDT Martin Moura MD LABORATORY Performing Organization Address City/[facility] Co de Phone Number [facility] [address] [address] * (ABNORMAL) IRON (10/14/2023 7:13 AM CDT) Iron 31(L) 35 - 145 mcg/dL [facility] Blood 10/14/2023 7:13 AM CDT 10/14/2023 7:33 AM CDT Martin Moura MD LABORATORY Performing Organization Address [facility] Co de Phone Number [facility] [address] [address] * (ABNORMAL) FERRITIN (10/14/2023 7:13 AM CDT) Ferritin 400.0(H) 13.0 - 150.0 ng/mL [facility] Comment: Test Performed by: [facility] [address] [place] [address] Blood 10/14/2023 7:13 AM CDT 10/14/2023 7:33 AM CDT Martin Moura MD LABORATORY Performing Organization Address City/[facility] Co de Phone Number [facility] [address] [address] * (ABNORMAL) CBC WITH PLATELET (10/14/2023 7:13 AM CDT) WBC 3.20(L) 4.00 - 10.00 k/cmm [facility] RBC 3.67(L) 3.90 - 5.20 m/cmm [facility] Hgb 11.1(L) 11.5 - 15.7 g/dL [facility] Hematocrit 34.1 34.0 - 45.0 % [facility] MCV 92.9 80.0 - 100.0 fL [facility] MCH 30.2 25.0 - 32.0 pg [facility] MCHC 32.6 31.0 - 36.0 g/dL [facility] RDW 13.1 11.5 - 14.5 % [facility] Plt 183 150 - 400 k/cmm [facility] MPV 10.4 6.5 - 12.5 fL [facility] Blood 10/14/2023 7:13 AM CDT 10/14/2023 7:33 AM CDT Martin Moura MD LABORATORY [facility] [address] [address] * (ABNORMAL) PANEL BASIC METABOLIC (BMP) (10/14/2023 7:13 AM CDT) CO2 24 22 - 30 mmol/L [facility] Glucose 117(H) 70 - 100 mg/dL [facility] BUN 8 8 - 23 mg/dL [facility] Creatinine 0.55 0.50 - 1.00 mg/dL [facility] Calcium 8.9 8.8 - 10.2 mg/dL [facility] Sodium 141 135 - 148 mmol/L [facility] Potassium 3.6 3.5 - 5.3 mmol/L [facility] Chloride 106 92 - 108 mmol/L [facility] AnGap 11 8 - 16 mmol/L [facility] eGFR (2020 CKD-EPI) 95 >=60 ml/min/1.7 3m2 [facility] Comment: The estimated glomerular filtration rate (eGFR) was calculated using the CKD-EPI 2020 creatinine equation, which does not include race as a factor. This equation is validated in individuals 18 years of age and older, and eGFR is normalized to a body surface area of 1.73m^2. Blood 10/14/2023 7:13 AM CDT 10/14/2023 7:33 AM CDT Martin Moura MD LABORATORY Performing Organization Address [facility] de Phone Number [address] [address] * PHOSPHORUS (10/14/2023 7:11 AM CDT) Phosphorus 3.6 2.5 - 4.5 mg/dL [facility] Blood 10/14/2023 7:11 AM CDT 10/14/2023 12:48 PM CDT Martin Moura MD LABORATORY Performing Organization Address [facility] de Phone Number [address] [address] * (ABNORMAL) POC GLUCOSE (10/14/2023 6:05 AM CDT) POC Glucose 112(H) 70 - 100 mg/dL [facility] Blood 10/14/2023 6:05 AM CDT Gautam Cook MD LABORATORY Performing Organization Address [facility] de Phone Number [facility] POINT OF [address] [address], [place] * (ABNORMAL) POC GLUCOSE (10/14/2023 12:06 AM CDT) POC Glucose 136(H) 70 - 100 mg/dL [facility] Blood 10/14/2023 12:0 6 AM CDT Gautam Cook MD LABORATORY Performing Organization Address [facility] Co de Phone Number [facility] POINT OF [address] [address], [place] * (ABNORMAL) POC GLUCOSE (10/13/2023 11:56 AM CDT) [facility] POC Glucose 120(H) 70 - 100 mg/dL [facility] Blood 10/13/2023 11:5 6 AM CDT Gautam Cook MD LABORATORY Performing Organization Address [facility]/ZIP Co de Phone Number [facility] [address] [place] [address] * (ABNORMAL) PHOSPHORUS (10/13/2023 6:39 AM CDT) [facility] Phosphorus 2.2(L) 2.5 - 4.5 mg/dL [facility] Blood 10/13/2023 6:39 AM CDT 10/13/2023 6:55 AM CDT Vasu Argueta APRN, CNP LABORATORY Performing Organization Address City/[facility] Co de Phone Number [facility] [place] [address] * MAGNESIUM (10/13/2023 6:39 AM CDT) [facility] Magnesium 1.9 1.6 - 2.4 mg/dL [facility] Blood 10/13/2023 6:39 AM CDT 10/13/2023 6:55 AM CDT Vasu Argueta APRN, CNP LABORATORY Performing Organization Address City/[facility] Co de Phone Number [facility] [place] [address] * (ABNORMAL) PANEL BASIC METABOLIC (BMP) (10/13/2023 6:39 AM CDT) [facility] Sodium 143 135 - 148 mmol/L [facility] Potassium 3.2(L) 3.5 - 5.3 mmol/L [facility] Chloride 107 92 - 108 mmol/L [facility] CO2 25 22 - 30 mmol/L [facility] AnGap 11 8 - 16 mmol/L [facility] Glucose 110(H) 70 - 100 mg/dL [facility] BUN 12 8 - 23 mg/dL [facility] Creatinine 0.51 0.50 - 1.00 mg/dL [facility] Calcium 8.6(L) 8.8 - 10.2 mg/dL [facility] eGFR (2020 CKD-EPI) 97 >=60 ml/min/1.7 3m2 [facility] Comment: The estimated glomerular filtration rate (eGFR) was calculated using the CKD-EPI 2020 creatinine equation, which does not include race as a factor. This equation is validated in individuals 18 years of age and older, and eGFR is normalized to a body surface area of 1.73m^2. Blood 10/13/2023 6:39 AM CDT 10/13/2023 6:55 AM CDT Vasu Argueta APRN, CNP LABORATORY [facility] [address] [address] * (ABNORMAL) CBC WITH PLATELET (10/13/2023 6:39 AM CDT) WBC 4.32 4.00 - 10.00 k/cmm [facility] RBC 3.64(L) 3.90 - 5.20 m/cmm [facility] Hgb 10.9(L) 11.5 - 15.7 g/dL [facility] Hematocrit 33.4(L) 34.0 - 45.0 % [facility] MCV 91.8 80.0 - 100.0 fL [facility] MCH 29.9 25.0 - 32.0 pg [facility] MCHC 32.6 31.0 - 36.0 g/dL [facility] RDW 13.2 11.5 - 14.5 % [facility] Plt 164 150 - 400 k/cmm [facility] MPV 10.5 6.5 - 12.5 fL [facility] Blood 10/13/2023 6:39 AM CDT 10/13/2023 6:55 AM CDT Vasu Argueta APRN, CNP LABORATORY Performing Organization Address City/[facility]/ZIP Co de Phone Number [facility] [address] [place] [phone] * POC GLUCOSE (10/12/2023 5:56 PM CDT) POC Glucose 94 70 - 100 mg/dL [facility] Blood 10/12/2023 5:56 PM CDT Gautam Cook MD LABORATORY Performing Organization Address City/[facility] Co de Phone Number [facility] [address] [place] [phone], [place] * POC GLUCOSE (10/12/2023 12:08 PM CDT) POC Glucose 76 70 - 100 mg/dL [facility] Blood 10/12/2023 12:0 8 PM CDT Gautam Cook MD LABORATORY Performing Organization Address [facility] Co de Phone Number [facility] POINT OF [address] [address], [place] * ICU PHOSPHORUS (10/12/2023 6:25 AM CDT) Phosphorus 2.9 2.5 - 4.5 mg/dL [facility] Blood 10/12/2023 6:25 AM CDT 10/12/2023 6:33 AM CDT Lucain Matthews MD LABORATORY Performing Organization Address City/[facility] Co de Phone Number [facility] [address] [place] [phone] * ICU MAGNESIUM (10/12/2023 6:25 AM CDT) Magnesium 2.0 1.6 - 2.4 mg/dL [facility] Blood 10/12/2023 6:25 AM CDT 10/12/2023 6:33 AM CDT Lucian Matthews MD LABORATORY Performing Organization Address [facility] Co de Phone Number [facility] [address] [address] * (ABNORMAL) ICU PANEL BASIC METABOLIC (BMP) (10/12/2023 6:25 AM CDT) CO2 22 22 - 30 mmol/L [facility] Glucose 88 70 - 100 mg/dL [facility] BUN 14 8 - 23 mg/dL [facility] Creatinine 0.62 0.50 - 1.00 mg/dL [facility] Calcium 8.4(L) 8.8 - 10.2 mg/dL [facility] Sodium 140 135 - 148 mmol/L [facility] Potassium 3.5 3.5 - 5.3 mmol/L [facility] Chloride 105 92 - 108 mmol/L [facility] eGFR (2020 CKD-EPI) 92 >=60 ml/min/1.7 3m2 [facility] Comment: The estimated glomerular filtration rate (eGFR) was calculated using the CKD-EPI 2020 creatinine equation, which does not include race as a factor. This equation is validated in individuals 18 years of age and older, and eGFR is normalized to a body surface area of 1.73m^2. AnGap 13 8 - 16 mmol/L [facility] Blood 10/12/2023 6:25 AM CDT 10/12/2023 6:33 AM CDT Lucian Matthews MD LABORATORY Performing Organization Address City/[facility] Co de Phone Number [facility] [address] [address] * (ABNORMAL) ICU CBC WITH PLATELET (10/12/2023 6:25 AM CDT) WBC 6.19 4.00 - 10.00 k/cmm [facility] RBC 3.64(L) 3.90 - 5.20 m/cmm [facility] Hgb 11.4(L) 11.5 - 15.7 g/dL [facility] Hematocrit 33.7(L) 34.0 - 45.0 % [facility] MCV 92.6 80.0 - 100.0 fL [facility] MCH 31.3 25.0 - 32.0 pg [facility] MCHC 33.8 31.0 - 36.0 g/dL [facility] RDW 13.2 11.5 - 14.5 % [facility] Plt 170 150 - 400 k/cmm [facility] MPV 10.1 6.5 - 12.5 fL [facility] Blood 10/12/2023 6:25 AM CDT 10/12/2023 6:34 AM CDT Lucian Matthews MD LABORATORY Performing Organization Address City/[facility] Co de Phone Number [facility] [address] [place] [phone] * POC GLUCOSE (10/12/2023 6:18 AM CDT) POC Glucose 84 70 - 100 mg/dL [facility] Blood 10/12/2023 6:18 AM CDT Gautam Cook MD LABORATORY Performing Organization Address City/[facility] Co de Phone Number [facility] [address] [place] [phone], [place] * POC GLUCOSE (10/12/2023 1:11 AM CDT) POC Glucose 86 70 - 100 mg/dL [facility] Blood 10/12/2023 1:11 AM CDT Gautam Cook MD LABORATORY Performing Organization Address [facility] Co de Phone Number [facility] [address] [place] [phone], [place] * XR ABDOMEN 1 VIEW* (10/11/2023 [...] Reading Radiologist: Vasu Green Nely Sandoval APRN, [employer] RAD XRAY * POC GLUCOSE (10/11/2023 5:29 PM CDT) POC Glucose 79 70 - 100 mg/dL [facility] Blood 10/11/2023 5:29 PM CDT Gautam Cook MD LABORATORY Performing Organization Address City/[facility] Co de Phone Number [facility] POINT OF [facility] [address] [place] [phone], [place] * POC GLUCOSE (10/11/2023 11:31 AM CDT) POC Glucose 93 70 - 100 mg/dL [facility] Blood 10/11/2023 11:3 1 AM CDT Gautam Cook MD LABORATORY Performing Organization Address City/[facility]/ZIP Co de Phone Number [facility] POINT [facility] [address] [place] [phone], [place] * XR ANKLE RIGHT 3 V [...] Narrative 10/11/2023 9:44 AM CDT Indication: s/p halfway. Rright ankle swelling and pain with ROM ?? Comparison: None FINDINGS: No acute fracture is identified at the ankle. On the oblique view of the ankle, there is a punctate density visualized near the first TMT joint at the midfoot. Inferior calcaneus enthesophyte. Mild osteoarthritis throughout the hindfoot and partially visualized midfoot. Procedure Note Vasu Green MD - 10/11/2023 Indication: s/p halfway. Rright ankle swelling and pain with ROM [...] evaluation. Reading Radiologist: Vasu Green Nely Sandoval DIETETIC ASSISTANT, [employer] RAD XRAY * XR KNEE LEFT 3 VIEWS* (10/11/2023 9:36 AM CDT) Anatomical Region Laterality Modality Lower Extremity Computed Radiogr aphy 10/11/2023 9:44 AM CDT Impressions 10/11/2023 9:45 AM CDT IMPRESSION: 1. No acute fracture is identified. 2. Osteoarthritis. Reading Radiologist: Vasu Green Narrative 10/11/2023 9:45 AM CDT Indication: s/p CUSTODIAL. knee pain with ROM ?? Comparison: None FINDINGS: No acute fracture is identified. 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 Small knee joint effusion. Prominent bone spur along the superior aspect of the patella, which may be due to remote trauma. Procedure Note Vasu Green MD - 10/11/2023 Indication: s/p CUSTODIAL. knee pain with ROM Comparison: None FINDINGS: No acute fracture is identified. Tricompartmentalosteoarthritis, most pronounced in the medial compartment where there ismoderate osteoarthritis. Small knee joint effusion. Prominent bone spuralong the superior aspect of the patella, which may be due to remotetrauma. IMPRESSION IMPRESSION: 1. No acute fracture is identified. 2. Osteoarthritis. Reading Radiologist: Vasu Green Nely Sandoval APRN, [employer] RAD XRAY * CT CHEST NO IV [...] Green Reading Resident: Zurdo Monsivais Nely Sandoval DIETETIC ASSISTANT, [employer] RAD CT B [place] * (ABNORMAL) POC GLUCOSE (10/11/2023 5:42 AM CDT) Pathologist [facility] POC Glucose 113(H) 70 - 100 mg/dL [facility] Blood 10/11/2023 5:42 AM CDT Gautam Cook MD LABORATORY [facility] [address] [place] [address], * (ABNORMAL) ICU PANEL BASIC METABOLIC (BMP) (10/11/2023 5:20 AM CDT) [facility] Sodium 139 135 - 148 mmol/L [facility] Potassium 3.7 3.5 - 5.3 mmol/L [facility] Chloride 104 92 - 108 mmol/L [facility] CO2 23 22 - 30 mmol/L [facility] AnGap 12 8 - 16 mmol/L [facility] Glucose 118(H) 70 - 100 mg/dL [facility] BUN 12 8 - 23 mg/dL [facility] Creatinine 0.81 0.50 - 1.00 mg/dL [facility] Calcium 8.4(L) 8.8 - 10.2 mg/dL [facility] eGFR (2020 CKD-EPI) 75 >=60 ml/min/1.7 3m2 [facility] Comment: The estimated glomerular filtration rate (eGFR) was calculated using the CKD-EPI 2020 creatinine equation, which does not include race as a factor. This equation is validated in individuals 18 years of age and older, and eGFR is normalized to a body surface area of 1.73m^2. Blood 10/11/2023 5:20 AM CDT 10/11/2023 5:36 AM CDT Lucian Matthews MD LABORATORY Performing Organization Address City/[facility]/ZIP Co de Phone Number [facility] [address] [address] * (ABNORMAL) ICU CBC WITH PLATELET (10/11/2023 5:20 AM CDT) WBC 4.56 4.00 - 10.00 k/cmm [facility] RBC 3.71(L) 3.90 - 5.20 m/cmm [facility] Hgb 11.7 11.5 - 15.7 g/dL [facility] Hematocrit 34.8 34.0 - 45.0 % [facility] MCV 93.8 80.0 - 100.0 fL [facility] MCH 31.5 25.0 - 32.0 pg [facility] MCHC 33.6 31.0 - 36.0 g/dL [facility] RDW 13.4 11.5 - 14.5 % [facility] Plt 201 150 - 400 k/cmm [facility] MPV 10.3 6.5 - 12.5 fL [facility] Blood 10/11/2023 5:20 AM CDT 10/11/2023 5:36 AM CDT Lucian Matthews MD LABORATORY Performing Organization Address [facility] Co de Phone Number [facility] [address] [address] * MRSA SURVEILLANCE SCREEN (10/11/2023 4:05 AM CDT) Final Report No MRSA isolated. [facility] Swab NASAL STRUCTURE / Unknown 10/11/2023 4:05 AM CDT 10/11/2023 7:23 AM CDT Gautam Cook MD LAB MICROBIOLOGY Performing Organization Address City/[facility]/ZIP Co de Phone Number [facility] [address] [address] * XR PELVIS AP* (10/10/2023 11:38 PM [...] hyoid bone horn ([place] seen on series [id number], image #28), likely representing fracture. Additionally, there may be subtle widening of the right cricoarytenoid joint (series [id number], image 22). Also, irregularities of the posterior [...] the head to a level near the [place] of [place]. ??3D reconstructions and multiplanar 2D [...] into thehead to a level near the [place] of [place]. 3D reconstructions andmultiplanar 2D image reformations were performed and reviewed by theRadiologist using the [employer] workstation, and these images were archivedin the [...] hyoid bone horn (best seen on series [id number], image #28), likely representing fracture. Additionally, there may be subtle widening of the right cricoarytenoid joint (series [id number], image 22). Also, irregularities of the posterior [...] the head to a level near the [place] of [place]. ??3D reconstructions and multiplanar 2D image reformations were performed and reviewed by the Radiologist using the [employer] workstation, and these images were archived in [...] into thehead to a level near the [place] of [place]. 3D reconstructions andmultiplanar 2D image reformations were performed and reviewed by theRadiologist using the [employer] workstation, and these images were archivedin the [...] (10/10/2023 10:21 PM CDT) SST TUBE Stored [facility] Comment:SST tubes (Serum Sep arator) are stored in the lab for 3 days from the collection date. Blood 10/10/2023 10:2 1 PM CDT 10/10/2023 10:32 PM CDT Gautam Cook MD LABORATORY [facility] [address] [address] * EXTRA TUBE - LIGHT GREEN (10/10/2023 10:21 PM CDT) LIGHT GREEN TUBE Stored [facility] Comment:Green tubes ([place] Heparin) are stored in the lab for 3 days from the collection date. Blood 10/10/2023 10:2 1 PM CDT 10/10/2023 10:32 PM CDT Gautam Cook MD LABORATORY Performing Organization Address City/[facility] Co de Phone Number [facility] [address] [address] * PROTHROMBIN (PT) & INR (10/10/2023 10:21 PM CDT) Pathologist [facility] PT 12.3 9.0 - 12.5 sec [facility] INR 1.1 0.8 - 1.1 [facility] Comment: Warfarin Therapeutic Range: Standard Intensity: 2.0 - 3.0 High Intensity: 2.5 - 3.5 Blood 10/10/2023 10:2 1 PM CDT 10/10/2023 10:39 PM CDT Gautam Cook MD LABORATORY Performing Organization Address [facility] Co de Phone Number [facility] [address] [address] * PRECAUTIONARY TUBE (10/10/2023 10:21 PM CDT) Pathologist [facility] Prec Tube Precautionary Blood Bank Specimen Received. [facility] Blood 10/10/2023 10:2 1 PM CDT 10/10/2023 10:57 PM CDT Gautam Cook MD LAB TRANSFUSION SE RVICES Performing Organization Address City/[facility] Co de Phone Number [facility] [address] [address] * (ABNORMAL) CBC WITH PLTS/AUTO DIFF (10/10/2023 10:21 PM CDT) WBC 9.42 4.00 - 10.00 k/cmm [facility] RBC 4.04 3.90 - 5.20 m/cmm [facility] Hgb 12.3 11.5 - 15.7 g/dL [facility] Hematocrit 37.3 34.0 - 45.0 % [facility] MCV 92.3 80.0 - 100.0 fL [facility] MCH 30.4 25.0 - 32.0 pg [facility] MCHC 33.0 31.0 - 36.0 g/dL [facility] RDW 13.2 11.5 - 14.5 % [facility] Plt 224 150 - 400 k/cmm [facility] MPV 10.0 6.5 - 12.5 fL [facility] Automated Abs Neutrophil 8.05(H) 1.70 - 6.50 k/cmm [facility] Comment:Preliminary ANC, Fin al Result to Follow Abs Immature Granulocyte 0.06 0.00 - 0.09 k/cmm [facility] Comment:The Immature Granulo cyte Absolute count contains metamyelocytes and myelocytes. Abs Neutrophil 8.05(H) 1.70 - 6.50 k/cmm [facility] Abs Lymphocyte 0.55(L) 0.80 - 4.00 k/cmm [facility] Abs Monocyte 0.74 0.20 - 1.00 k/cmm [facility] Abs Eosinophil 0.00 0.00 - 0.60 k/cmm [facility] Abs Basophil 0.02 0.00 - 0.20 k/cmm [facility] Blood 10/10/2023 10:2 1 PM CDT 10/10/2023 10:39 PM CDT Gautam Cook MD LABORATORY [facility] [address] [address] * (ABNORMAL) ED CHEMISTRY LABS(NA,K,CL,CO2,GLU,CREAT,CA-IONIZED,ANION GAP) (10/10/2023 10:21 PM CDT) Sodium 140 135 - 148 mmol/L [facility] Chloride 102 92 - 108 mmol/L [facility] AnGap 14 8 - 16 mmol/L [facility] Glucose 125(H) 70 - 100 mg/dL [facility] ICA, Actual 4.54 4.40 - 5.20 mg/dL [facility] ICA, pH Corrected 4.67 4.40 - 5.20 mg/dL [facility] Creatinine 0.92 0.50 - 1.00 mg/dL [facility] BICARB 24 22 - 26 mEq/L [facility] eGFR (2020 CKD-EPI) 65 >=60 ml/min/1.7 3m2 [facility] Comment: The estimated glomerular filtration rate (eGFR) was calculated using the CKD-EPI 2020 creatinine equation, which does not include race as a factor. This equation is validated in individuals 18 years of age and older, and eGFR is normalized to a body surface area of 1.73m^2. Potassium 3.6 3.5 - 5.3 mmol/L [facility] Blood 10/10/2023 10:2 1 PM CDT 10/10/2023 10:33 PM CDT Gautam Cook MD LABORATORY [facility] [address] [address] documented in this encounter Visit Diagnoses Diagnosis Blunt trauma of neck, subsequent encounter- Primary Blunt trauma of neck, subsequent encounter Blunt trauma of neck, initial encounter Pneumomediastinum (CMS/HHS) Interstitial emphysema Insomnia, unspecified type Pneumomediastinum (CMS/HHS) Interstitial emphysema Blunt trauma of neck, initial encounter Blunt trauma of neck, subsequent encounter documented in this encounter Admitting Diagnoses [...] Administer over 15 Minutes, First dose on 10/11/23 at 0625, Until Discontinued New Bag 10/13/2023 12:30 PM CDT 1,000 mg 400 mL/hr New Bag 10/13/2023 5:42 AM CDT 1,000 mg 400 mL/hr New Bag 10/13/2023 12:00 AM CDT 1,000 mg 400 mL/hr acetaminophen (TYLENOL) 160 mg/ 5mL oral solution 650 mg 650 mg, Feeding Tube, Q4H PRN, Starting on Thu10/13/23 at 1215, Until Thu10/19/23 at 2139, Mild Pain (Use First) Given 10/19/2023 5:52 AM CDT 650 mg Given 10/18/2023 10:15 AM CDT 650 mg Given 10/16/2023 9:05 PM CDT 650 mg amLODIPine (NORVASC) tablet 5 mg 5 mg, Feeding Tube, DAILY, First dose on Thu10/14/23 at 0800, Until Discontinued Given 10/19/2023 8:13 AM CDT 5 mg Given 10/18/2023 8:06 AM CDT 5 mg Given 10/17/2023 7:39 AM CDT 5 mg ampicillin-sulbactam (UNASYN) 3 g in NaCl 0.9% 100 mL IVPB 3 g, Indication (Select One): Prophylaxis - Medical, Intravenous, Q6H, 28 doses, First dose on Thu10/11/23 at 0625, Last dose on Thu10/18/23 at 0000 New Bag 10/18/2023 12:38 AM CDT 3 g 200 mL/hr New Bag 10/17/2023 6:02 PM CDT 3 g 200 mL/hr New Bag 10/17/2023 11:36 AM CDT 3 g 200 mL/hr barium (VARIBAR) suspension 60 mL 60 [...] 10/16/2023 10:14 AM CDT 20 mL Oral bisacodyl (DULCOLAX) suppository 10 mg 10 mg, Rectal, DAILY PRN, Starting on Thu10/13/23 at 1338, Until Thu10/19/23 at 2139, Other (specify), 3rd line cefEPIME (MAXIPIME) 2,000 mg in NaCl 0.9% IVPB 2,000 mg (2 g), Indication (Select One): Prophylaxis - Medical, Intravenous, ONE TIME, 1 dose, On 10/11/23 at 0125 New Bag 10/11/2023 2:14 AM CDT 2,000 mg 200 mL/hr cepacol 1 lozenge mouth/throat 1 lozenge, Oral, Q2H PRN, Starting on Thu10/14/23 at 1058, Until Thu10/19/23 at 2139, Sore Throat Given 10/17/2023 3:29 PM CDT 1 lozenge Given 10/16/2023 9:05 PM CDT 1 lozenge Given 10/15/2023 5:59 PM CDT 1 lozenge [employer] MED REC REVIEW BY PHARMACY Discharge Date: 10/19/2023, Discharge Location: Home, Anticipated Discharge Time: After 2 pm, Discharge Medication Orders: DC Med Orders Final, Does not apply, PROTOCOL, Starting on Thu10/19/23 at 1103, Until Thu10/19/23 at 2139 diphenhydrAMINE (BENADRYL) 12.5 mg/5mL elixir 50 mg 50 mg, Feeding Tube, BEDTIME, First dose on Thu10/12/23 at 2000, Until Discontinued Given 10/12/2023 10:12 PM CDT 50 mg diphenhydrAMINE (BENADRYL) capsule 25 mg 25 mg, Oral, QID PRN, 1 dose, Starting on Thu10/11/23 at 2236, Until Thu10/11/23 at 2303, Other (specify), Sleep and anxiety Given 10/11/2023 11:03 PM CDT 25 mg enoxaparin (LOVENOX) 40 mg/0.4 mL injection 40 mg 40 mg, Subcutaneous, DAILY, First dose on Thu10/13/23 at 1305, Until Discontinued Given 10/19/2023 8:13 AM CDT 40 mg Left Lower Quadrant Abdomen Given 10/18/2023 8:06 AM CDT 40 mg Ab dominal Tissue Given 10/17/2023 7:38 AM CDT 40 mg Le ft Upper Arm famotidine (PEPCID) 40 mg/5 mL suspension 20 mg 20 mg, Feeding Tube, BID, 5 doses, First dose on Thu10/17/23 at 1100, Last dose on Thu10/19/23 at 0800 Given 10/19/2023 8:13 AM CDT 20 mg Given 10/18/2023 8:00 PM CDT 20 mg Given 10/18/2023 8:06 AM CDT 20 mg famotidine (PEPCID) tablet 20 mg 20 mg, Feeding Tube, BID, First dose on Thu10/19/23 at 2000, Until Discontinued GABApentin (NEURONTIN) 250 mg/5 mL oral solution 300 mg 300 mg, Feeding Tube, TID, First dose (after last modification) on Thu10/14/23 at 1400, Until Discontinued Given 10/17/2023 7:39 AM CDT 300 mg Given 10/16/2023 9:05 PM CDT 300 mg Given 10/16/2023 4:22 PM CDT 300 mg GABApentin (NEURONTIN) 250 mg/5 mL oral solution 600 mg 600 mg, Feeding Tube, TID, First dose (after last modification) on Thu10/17/23 at 1400, Until Discontinued Given 10/19/2023 2:07 PM CDT 600 mg Given 10/19/2023 8:13 AM CDT 600 mg Given 10/18/2023 8:00 PM CDT 600 mg guar gum (NUTRISOURCE FIBER) packet 1 packet 1 packet, Feeding Tube, TID, First dose on Thu10/14/23 at 1400, Until Discontinued Given 10/19/2023 2:07 PM CDT 1 pac ket Given 10/19/2023 8:13 AM CDT 1 packet Given 10/18/2023 8:00 PM CDT 1 packet HYDROmorphone PF (DILAUDID) 1 mg/mL injection 0.5 mg 0.5 mg, IV Push, ONE TIME, 1 dose, On Thu10/11/23 at 0050 Given 10/11/2023 1:24 AM CDT 0.5 mg hydroxychloroquine (PLAQUENIL) tablet 200 mg 200 mg, Feeding Tube, BID, First dose on Thu10/14/23 at 1100, Until Discontinued Given 10/19/2023 8:13 AM CDT 200 mg Given 10/18/2023 8:00 PM CDT 200 mg Given 10/18/2023 8:06 AM CDT 200 mg iohexol (OMNIPAQUE) 240 mg/mL injection Oral, RAD ONE TIME AUTO ACKNOWLEDGE, 1 dose, On 10/11/23 at 0925 Given 10/11/2023 9:21 AM CDT 50 mL Oral iohexol (OMNIPAQUE) 350 mg/mL injection IV Push, RAD ONE TIME AUTO ACKNOWLEDGE, 1 dose, On 10/10/23 at 2340 Given 10/10/2023 11:36 PM CDT 120 mL Left Arm loperamide (IMODIUM) capsule 2 mg 2 mg, Feeding Tube, Q3H PRN, Starting on Thu10/13/23 at 1358, Until Thu10/19/23 at 2139, Diarrhea Given 10/19/2023 2:07 PM CDT 2 mg Given 10/19/2023 11:17 AM CDT 2 mg Given 10/18/2023 3:30 PM CDT 2 mg LORazepam (ATIVAN) 2 mg/mL injection 1 mg 1 mg, IV Push, BEDTIME PRN, Starting on Thu10/12/23 at 1436, Until Thu10/13/23 at 1100, Other (specify), Sleep. May use if patient is still awake at midnight Given 10/12/2023 9:32 PM CDT 1 mg melatonin tablet 3 mg 3 mg, Feeding Tube, BEDTIME PRN, Starting on Thu10/13/23 at 1208, Until Thu10/19/23 at 2139, Sleep Given 10/18/2023 10:04 PM CDT 3 mg Given 10/18/2023 12:38 AM CDT 3 mg Given 10/16/2023 10:15 PM CDT 3 mg normal saline flush 0.9 % solution 10 mL 10 mL, IV Push, Q12H, First dose on Thu10/19/23 at 0800, Until Discontinued Given 10/19/2023 8:14 AM CDT 10 mL normal saline flush 0.9 % solution 10 mL 10 mL, IV Push, Q5 MIN PRN, Starting on Thu10/18/23 at 2331, Until Thu10/19/23 at 2139, IV Line Flush Given 10/19/2023 12:55 AM CDT 10 mL pantoprazole (PROTONIX) injection 40 mg 40 mg, IV Push, ONE TIME, Administer over 2 Minutes, On Thu10/11/23 at 0245 Given 10/11/2023 4:05 AM CDT 40 mg pantoprazole (PROTONIX) injection 40 mg 40 mg, IV Push, DAILY, Administer over 2 Minutes, First dose on Thu10/11/23 at 0800, Until Discontinued Given 10/17/2023 7:39 AM CDT 40 mg Given 10/16/2023 8:13 AM CDT 40 mg Given 10/15/2023 7:58 AM CDT 40 mg polyethylene glycol 3350 (MIRALAX;GLYCOLAX) packet 17 g 17 g, Feeding Tube, DAILY PRN, Starting on Thu10/13/23 at 1338, Until Thu10/19/23 at 2139, Constipation (Use First) potassium chloride (K-VERO) powder 40 mEq 40 mEq, Feeding Tube, ONE TIME, 1 dose, On Thu10/13/23 at 1115 Given 10/13/2023 12:14 PM CDT 40 mEq potassium phosphates 6 mmol in NaCl 0.9% 50 mL IVPB 6 mmol, Intravenous, ONE TIME, On Thu10/13/23 at 1200 New Bag 10/13/2023 1:29 PM CDT 6 mmol senna (UNI-CENNA) syrup 26.4 mg 26.4 mg (15 mL), Feeding Tube, BID PRN, Starting on Thu10/14/23 at 1106, Until Thu10/19/23 at 2139, Constipation (Use Second) traZODone (DESYREL) tablet 50 mg 50 mg, Feeding Tube, BEDTIME PRN, Starting on Thu10/13/23 at 1209, Until Thu10/19/23 at 2139, Sleep, 2nd line (use after melatonin) Given 10/18/2023 10:04 PM CDT 50 mg Given 10/16/2023 10:15 PM CDT 50 mg Given 10/15/2023 10:52 PM CDT 50 mg water oral liquid 75 mL 75 mL, Feeding Tube, Q3H, First dose on Thu10/13/23 at 1200, Until Discontinued Given 10/19/2023 12:00 PM CDT 75 mL Given 10/19/2023 8:14 AM CDT 75 mL Given 10/19/2023 5:55 AM CDT 75 mL documented in this encounter Active and Recently Administered Medications Times are shown in CDT. Scheduled Medication Order 10/17/2023 10/18/2023 10/19/2023 amLODIPine (NORVASC) tablet 5 mg 5 mg, Feeding Tube, DAILY, First dose on Thu10/14/23 at 0800, Until Discontinued 0739 (Given - Provider: Miguelina Cooper RN) 08 (Given - Provider: Emre Lopez, RN) 08 (Given - Provider: Alyssa Garcia, RN) ampicillin-sulbactam (UNASYN) 3 g in NaCl 0.9% 100 mL IVPB (COMPLETED) 3 g, Indication (Select One): Prophylaxis - Medical, Intravenous, Q6H, 28 doses, First dose on 10/11/23 at 0625, Last dose on Thu10/18/23 at 0000 0037 (New Bag - Provider: Mónica Sequeira RN)0107 (Infusion completed - Provider: Mónica Sequeira RN)0543 (New Bag - Provider: Mónica Sequeira RN)0727 (Infusion completed - Provider: Miguelina Cooper RN)1136 (New Bag - Provider: Miguelina Cooper RN)1228 (Infusion completed - Provider: Miguelina Cooper RN)1802 (New Bag - Provider: Miguelina Cooper RN)1841 (Infusion completed - Provider: Miguelina Cooper RN) 0038 (New Bag - Provider: Daisy Neely, RICK)0108 (Infusion completed - Provider: Daisy Neely, RICK) DC MED REC REVIEW BY PHARMACY(Linked Group 1) Discharge Date: 10/19/2023, Discharge Location: Home, Anticipated Discharge Time: After 2 pm, Discharge Medication Orders: DC Med Orders Final, Does not apply, PROTOCOL, Starting on Thu10/19/23 at 1103, Until Thu10/19/23 at 2139 enoxaparin (LOVENOX) 40 mg/0.4 mL injection 40 mg (CANCELED) 40 mg, Subcutaneous, DAILY, First dose on Thu10/13/23 at 1305, Until Discontinued 0738 (Given - Provider: Miguelina Cooper RN) 08 (Given - Provider: Emre Lopez, RICK) 08 (Given - Provider: Alyssa Garcia, RN) famotidine (PEPCID) 40 mg/5 mL suspension 20 mg (COMPLETED) 20 mg, Feeding Tube, BID, 5 doses, First dose on Thu10/17/23 at 1100, Last dose on Thu10/19/23 at 0800 1136 (Given - Provider: Miguelina Cooper RN)2126 (Given - Provider: Ky Salazar, RICK) 08 (Given - Provider: Emre Lopez RN)1999 (Given - Provider: Emre Lopez RN) 812 (Given - Provider: Alyssa Garcia, RN) famotidine (PEPCID) tablet 20 mg 20 mg, Feeding Tube, BID, First dose on Thu10/19/23 at 2000, Until Discontinued GABApentin (NEURONTIN) 250 mg/5 mL oral solution 300 mg (CANCELED) 300 mg, Feeding Tube, TID, First dose (after last modification) on Thu10/14/23 at 1400, Until Discontinued 0739 (Given - Provider: Miguelina Cooper RN) GABApentin (NEURONTIN) 250 mg/5 mL oral solution 600 mg 600 mg, Feeding Tube, TID, First dose (after last modification) on Thu10/17/23 at 1400, Until Discontinued 151 (Given - Provider: Miguelina Cooper RN)2126 (Given - Provider: Ky Salazar, RICK) 08 (Given - Provider: Emre Lopez RN)133 (Given - Provider: Emre Lopez RN)1999 (Given - Provider: Emre Lopez RN) 08 (Given - Provider: Alyssa Garcia, RN)1407 (Given - Provider: Alyssa Garcia, RN) guar gum (NUTRISOURCE FIBER) packet 1 packet 1 packet, Feeding Tube, TID, First dose on Thu10/14/23 at 1400, Until Discontinued 0739 (Given - Provider: Miguelina Cooper RN)151 (Given - Provider: Miguelina Cooper RN)2126 (Given - Provider: Ky Salazar, RICK) 08 (Given - Provider: Emre Lopez RN)133 (Given - Provider: Emre Lopez RN)1999 (Given - Provider: Emre Lopez RN) 0813 (Given - Provider: Alyssa Garcia RN)1407 (Given - Provider: Alyssa Garcia RN) hydroxychloroquine (PLAQUENIL) tablet 200 mg 200 mg, Feeding Tube, BID, First dose on Thu10/14/23 at 1100, Until Discontinued 0738 (Given - Provider: Miguelina Cooper RN)212 (Given - Provider: Ky Salazar RN) 08 (Given - Provider: Emre Lopez RN)1999 (Given - Provider: Emre Lopez RN) 08 (Given - Provider: Alyssa Garcia RN) normal saline flush 0.9 % solution 10 mL 10 mL, IV Push, Q12H, First dose on Thu10/19/23 at 0800, Until Discontinued 0814 (Given - Provider: Alyssa Garcia RN) pantoprazole (PROTONIX) injection 40 mg (CANCELED) 40 mg, IV Push, DAILY, Administer over 2 Minutes, First dose on Thu10/11/23 at 0800, Until Discontinued 0739 (Given - Provider: Miguelina Cooper RN) water oral liquid 75 mL 75 mL, Feeding Tube, Q3H, First dose on Thu10/13/23 at 1200, Until Discontinued 0000 (Given - Provider: Mónica Sequeira RN)0300 (Given - Provider: Mónica Sequeira RN)0600 (Given - Provider: Mónica Sequeira RN)0727 (Given - Provider: Miguelina Cooper RN)0910 (Given - Provider: Miguelina Cooper RN)1141 (Given - Provider: Miguelina Cooper RN)1530 (Given - Provider: Miguelina Cooper RN)1804 (Given - Provider: Miguelina Cooper RN)2100 (Given - Provider: Daisy Neely, RICK) 0000 (Given - Provider: Daisy Neely RN)0300 (Given - Provider: Emre Lopez RN)0600 (Given - Provider: Emre Lopez RN)0806 (Given - Provider: Emre Lopez RN)1100 (Given - Provider: Emre Lopez RN)1330 (Given - Provider: Emre Lopez RN)1722 (Given - Provider: Emre Lopez RN)2100 (Given - Provider: Emre Lopez RN) 0058 (Given - Provider: Joanna Collins RN)0250 (Given - Provider: Joanna Collins RN)0555 (Given - Provider: Joanna Collins, RICK)0814 (Given - Provider: Alyssa Garcia RN)1200 (Given - Provider: Alyssa Garcia RN)1500 (Due)1800 (Due) PRN Medication Order 10/17/2023 10/18/2023 10/19/2023 acetaminophen (TYLENOL) 160 mg/ 5mL oral solution 650 mg 650 mg, Feeding Tube, Q4H PRN, Starting on Thu10/13/23 at 1215, Until Thu10/19/23 at 2139, Mild Pain (Use First) 1015 (Given - Provider: Emre Lopez RN) 0552 (Given - Provider: Joanna Collins, RICK) bisacodyl (DULCOLAX) suppository 10 mg 10 mg, Rectal, DAILY PRN, Starting on Thu10/13/23 at 1338, Until Thu10/19/23 at 2139, Other (specify), 3rd line cepacol 1 lozenge mouth/throat 1 lozenge, Oral, Q2H PRN, Starting on Thu10/14/23 at 1058, Until Thu10/19/23 at 2139, Sore Throat 1529 (Given - Provider: Miguelina Cooper, RICK) loperamide (IMODIUM) capsule 2 mg 2 mg, Feeding Tube, Q3H PRN, Starting on Thu10/13/23 at 1358, Until Thu10/19/23 at 2139, Diarrhea 1534 (Given - Provider: Miguelina Cooper RN)1802 (Given - Provider: Miguelina K Kenneth, RN) 0806 (Given - Provider: Emre Lopez RN)1530 (Given - Provider: Emre Lopez RN) 1117 (Given - Provider: Alyssa Garcia, RN)1407 (Given - Provider: Alyssa Garcia RN) melatonin tablet 3 mg 3 mg, Feeding Tube, BEDTIME PRN, Starting on Thu10/13/23 at 1208, Until Thu10/19/23 at 2139, Sleep 0038 (Given - Provider: Daisy Neely RN)2204 (Given - Provider: Emre Lopez RN) normal saline flush 0.9 % solution 10 mL 10 mL, IV Push, Q5 MIN PRN, Starting on Thu10/18/23 at 2331, Until Thu10/19/23 at 2139, IV Line Flush 0055 (Given - Provider: Joanna Collins RN) polyethylene glycol 3350 (MIRALAX;GLYCOLAX) packet 17 g 17 g, Feeding Tube, DAILY PRN, Starting on Thu10/13/23 at 1338, Until Thu10/19/23 at 2139, Constipation (Use First) senna (UNI-CENNA) syrup 26.4 mg 26.4 mg (15 mL), Feeding Tube, BID PRN, Starting on Thu10/14/23 at 1106, Until Thu10/19/23 at 2139, Constipation (Use Second) traZODone (DESYREL) tablet 50 mg 50 mg, Feeding Tube, BEDTIME PRN, Starting on Thu10/13/23 at 1209, Until Thu10/19/23 at 2139, Sleep, 2nd line (use after melatonin) 2204 (Given - Provider: Emre Lopez RN) Linked Groups Order Group 1: DC MED REC REVIEW BY PHARMACYJump to med Discharge Date: 10/19/2023, Discharge Location: Home, Anticipated Discharge Time: After 2 pm, Discharge Medication Orders: DC Med Orders Final, Does not apply, PROTOCOL, Starting on Thu10/19/23 at 1103, Until Thu10/19/23 at 2139 And Discharge Med Rec Final Review by Pharmacy (COMPLETED) Routine, Order to be placed by provider after medications have been entered for discharge and are ready for review by Pharmacist. This order can be placed multiple times if changes or additions have been made to medications for discharge. Choose the Preliminary DC Med Rec review when placing orders prior to the day of discharge. Choose Final DC Med Rec when all medication changes have been entered. If DC Med Rec needed now, please page the Pharmacist covering the patient to inform them., Discharge Date: 10/19/2023, Discharge Location: Home, Anticipated Discharge Time: After 2 pm documented in this encounter Care Teams Physician Surgeon Relationship Specialty Start Date End Date Devyn Holden [place] [facility] [place] [address] [place] [address] PCP - General Family Medicine 10/19/23 Gayla Murillo, [facility]ING [facility] [address] [place] [address] Speech Pathologist Speech Pathology 10/19/23 documented as of this encounter
--- OUTSIDE RECORDS SUMMARY | 2023-11-27 13:02 | XMS_ITS | Encounter Summary ---
Author Organization [facility] Address [address] [place] [address] Phone Care Team Providers Care Milking Machine Operator Name Role Phone Devyn Holden MD Primary Care Provider [phone] Gayla Murillo RASPER MACHINE OPERATOR CCC Unavailable [phone] Encounter Details Date Type Department Care Team [...] on filedocumented in this encounter Care Teams Milking Machine Operator Relationship Specialty Start Date End Date Devyn Holden MD [facility] [address] [facility] [place] [address] PCP - General Family Medicine 10/19/23 Gayla Murillo, RASPER MACHINE OPERATOR [facility] [address] [place] [address] Speech Pathologist Speech Pathology 10/19/23 documented as of this encounter
--- OUTSIDE RECORDS SUMMARY | 2023-11-27 13:02 | XMS_ITS | Encounter Summary ---
Author Organization [facility] Address [address] [place] [address] Phone Care Team Providers Care Yard Pipe Grader Name Role Phone Unavailable Primary Care Provider Unavailabl e Reason for Referral * Consult/Test/Treat (Routine) - Closed Specialty Diagnoses / Procedures Referred By Contac t Referred To Contact Speech Pathology / NEUROLOGY Diagnoses Blunt trauma of neck, subsequent encounter Pneumomediastinum (CMS/HHS) Hoang Yancey Jr., MD [address] [place] [address] Referral ID Status Reason Start Date Expiration Date Visits Re quested Visits Authorized [id number] Closed 10/13/2023 10/11/2024 1 1 Encounter Details Date Type Department Care Team (Late st Contact Info) Description 10/12/2023 Orders Only [facility] [address] [address] Mariajose Camarillo MD [address] [place] [phone] Blunt trauma of neck, subsequent encounter (Primary [...] Blunt trauma of neck, subsequent encounter Pneumomediastinum ([facility]) Expected: 10/13/2023, Expires: 12/12/2024 Scheduled Referrals Name Type Priority Associated Diagnoses Orde r Schedule REFERRAL TO SPEECH LANGUAGE PATHOLOGY Referral Routine Blunt trauma of neck, subsequent encounter Pneumomediastinum ([facility]) Ordered: 10/13/2023 documented as of this encounter Visit Diagnoses Diagnosis Blunt trauma of neck, subsequent encounter- Primary Pneumomediastinum ([facility]) Interstitial emphysema documented in this encounter
--- OUTSIDE RECORDS SUMMARY | 2023-11-27 13:02 | XMS_ITS | Encounter Summary ---
Author Organization [facility] Address [address] [place] [address] Phone Care Team Providers Care Circuit Court Magistrate Name Role Phone Devyn Holden MD Primary Care Provider [phone] Gayla Murillo SILK SCREEN CUTTER CCC Unavailable [phone] Encounter Details Date Type Department Care Team (Late st Contact Info) Description 10/12/2023 Orders Only [facility] Film Room [facility] Radiology Department PEGGY [address] [facility] [address] Provider, [place] [address] Referral of patient (Primary Dx) Social History [...] OUTSIDE FILMS (10/10/2023 8:17 PM CDT) Santana Miranda Qtof-Fwhpcb-Khwuuzchn - 10/12/2023 6:28 AM CDT Outside Film Only Outside Provider RAD OUTSIDE FILMS * XR LOWER EXTREMITY OUTSIDE FILMS (10/10/2023 7:38 PM CDT) Santana Miranda Naht-Kdwgnu-Pzmxcxxjy - 10/12/2023 6:28 AM CDT Outside Film Only Outside Provider RAD OUTSIDE FILMS * XR LOWER EXTREMITY OUTSIDE FILMS (10/10/2023 7:33 PM CDT) Santana Miranda Uqvx-Skhell-Hlssuyejw - 10/12/2023 6:27 AM CDT Outside Film Only Outside Provider RAD OUTSIDE FILMS * CT SPINE OUTSIDE FILMS (10/10/2023 7:10 PM CDT) Santana Miranda Vnzv-Lfnscs-Ccdpklqwk - 10/12/2023 6:29 AM CDT Outside Film Only Outside Provider RAD OUTSIDE FILMS * CT SPINE OUTSIDE FILMS (10/10/2023 7:10 PM CDT) Narrative User, Qwbe-Dryckd-Ulaqbdgcu - 10/12/2023 6:29 AM CDT Outside Film Only Outside Provider RAD OUTSIDE FILMS documented in this encounter Visit Diagnoses Diagnosis Referral of patient- Primary Referral of patient without examination or treatment documented in this encounter Care Teams Circuit Court Magistrate Relationship Specialty Start Date End Date Devyn Holden MD [facility] [address] [place], [place] [phone] PCP - General Family Medicine 10/19/23 Gayla Murillo, SILK SCREEN CUTTER [facility] [address] [place] [address] Speech Pathologist Speech Pathology 10/19/23 documented as of this encounter
--- OUTSIDE RECORDS SUMMARY | 2023-11-27 13:02 | XMS_ITS | Encounter Summary ---
Author Organization [facility] Address [address] [place] [address] Phone Care Team Providers Care Pitch Filler Name Role Phone Unavailable Primary Care Provider Unavailabl e Encounter Details Date Type Department Care Team (Late st Contact Info) Description 10/14/2023 [facility] [place] [phone] Aramis Vanessa, DO [address] [address] Social History Tobacco Use Types [...]
--- OUTSIDE RECORDS SUMMARY | 2023-11-27 13:02 | XMS_ITS | Encounter Summary ---
Author Organization [facility] Address [address] [place] [address] Phone Care Team Providers Care Manager Strategy Name Role Phone Devyn Holden MD Primary Care Provider [phone] Gayla Murillo DIRECTOR OF CHILD WELFARE SERVICES CCC Unavailable [phone] Encounter Details Date Type Department Care Team [...] on filedocumented in this encounter Care Teams Manager Strategy Relationship Specialty Start Date End Date Devyn Holden MD [facility] [address] [facility] [place] [address] PCP - General Family Medicine 10/19/23 Gayla Murillo, DIRECTOR OF CHILD WELFARE SERVICES [facility] [address] [place] [address] Speech Pathologist Speech Pathology 10/19/23 documented as of this encounter
--- OUTSIDE RECORDS SUMMARY | 2023-11-27 13:02 | XMS_ITS | Encounter Summary ---
Author Organization [facility] Address [address] [place] [address] Phone Care Team Providers Care Glove Turner And Former Name Role Phone Unavailable Primary Care Provider [...]
--- OUTSIDE RECORDS SUMMARY | 2023-11-27 13:02 | XMS_ITS | Encounter Summary ---
Author Organization [facility] Address [address] [place] [address] Phone Care Team Providers Care Farm Equipment Mechanic Name Role Phone Devyn Holden MD Primary Care Provider [phone] Gayla Murillo TOWN PLANNER CCC Unavailable [phone] Encounter Details Date Type Department Care Team [...] on filedocumented in this encounter Care Teams Farm Equipment Mechanic Relationship Specialty Start Date End Date Devyn Holden MD [facility] [address] [facility] [place] [address] PCP - General Family Medicine 10/19/23 Gayla Murillo, TOWN PLANNER [facility] [address] [place] [address] Speech Pathologist Speech Pathology 10/19/23 documented as of this encounter
--- OUTSIDE RECORDS SUMMARY | 2023-11-27 13:03 | XMS_ITS | Clinical Summary ---
Author Organization [facility] Address [address], [place] [address] Care Team Providers Care Railcar Brake Operator Name Role Phone Devyn Holden MD Primary Care Provider [phone] Source Comments You are receiving this document as you are listed as the primary care provider,follow-up provider, or the patient has been referred to you for consultation.This is in compliance with the Medicare and[facility] EHR Incentive Program,which states Providers who transition their patient to another setting of careor provider of care or refers their patient to another provider of care shouldprovide summary care record for each transition of care or referral. [employer] Allergies Active Allergy Reactions Criticality Noted Date Comments Sulfa Antibiotics 04/16/2017 Medications Medication Sig Dispensed Refills Start Date End Date Status aspirin 81 MG tablet Take 1 Tablet (81 mg) by mouth daily. Active rizatriptan (MAXALT-BEEF BONER) 10 MG disintegrating tablet Take 1 Tablet [...] joint pain). 100 g 3 07/16/2020 Active hydroxychloroquine (PLAQUENIL) 200 MG tabletIndications:c utaneous lupus Take 1 Tablet (200 mg) by mouth two times a day. Indications: cutaneous lupus 180 Tablet 3 10/15/2022 Active amLODIPine (NORVASC) 10 MG tablet TAKE 1 TABLET (10 MG) BY MOUTH DAILY. 90 Tablet 11/09/2023 Active amLODIPine (NORVASC) 10 MG tablet Take 1 Tablet (10 mg) by mouth daily. 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 04/27/2017 History of total knee arthroplasty, right 2017 Raynaud's disease without gangrene 04/27/2017 Connective tissue disease 04/27/2017 Migraine 04/27/2017 Primary osteoarthritis of both hands 04/27/2017 Right hand pain 04/27/2017 Long-term use of hydroxychloroquine 04/27/2017 Encounters Date Type Department Care Team Description 11/09/2023 Refill [facility] [address] [place] [address] Everardo Luis MD Refill 10/19/2023 Notes/Orders [facility] [address] [place] [address] Everardo Luis MD from Last 3 Months Immunizations Name Administration Dates Next Due Flu Vac (3+ yrs) 01/26/2013,01/01/2012, 1 Fluzone Qiv Multidose Vial 0 .25 (6-35 Mos) 02/06/2015 Influenza (Fluad) 01/20/2019 Influenza (Flucelvax), Prese rv Free QIV 03/01/2017 Influenza IIV4 (Quadrivalent ) 0.5mL (10719) 12/31/2016 Influenza IIV4 (Quadrivalent ) Fluad, 65+ [...] Care Team (Late st Contact Info) Description 12/30/2023 11:45 AM CDT Appointment [facility] [address] [place], [place] [id number] Everardo Luis MD [facility] [place], [place] [id number] Health Maintenance Due Date Last Done Comments Medicare Annual Wellness Visit 1945 COVID-19 Vaccine ( season) 2022 01/28/2022, 11/03/2021, 02/13/2021, Additional history exists Influenza (#1) 2023 01/28/2022, 12/13, 01/28/2020, Additional history exists DTaP/Tdap/Td (2 - [...] ANTIBODY, WITH REFLEX Routine 04/27/2017 11:44 AM FREEZER PERSON Connective tissue disease (HRC) from Last 3 Months or Most Recently Relevant to Health Maintenance Results * HCAB - Hepatitis C Virus Sunita with Reflex In-House (04/27/2017 11:44 AM FREEZER PERSON) Hepatitis C Antibody Nonreactive Nonreactive PN SOFT 04/27/2017 11:4 4 AM FREEZER PERSON 04/27/2017 4:22 PM FREEZER PERSON Narrative PN SOFT - 04/27/2017 5:49 PM FREEZER PERSON Performed at [facility] [address] [place] [address] CLIA number [id number] Everardo Luis MD LAB_1 PN SOFT [address] [place] [address] from Last 3 Months or Most Recently Relevant to Health Maintenance Care Teams Railcar Brake Operator Relationship Specialty Start Date End Date Devyn Holden MD PCP - General Family Practice 11/27/21
--- OUTSIDE RECORDS SUMMARY | 2023-11-27 13:03 | XMS_ITS | Encounter Summary ---
Author Organization [facility] Address [address] [place] [address] Care Team Providers Care Paper Counter Name Role Phone Devyn Holden MD Primary Care Provider [phone] Reason for Visit * Reason Comments Refill Encounter Details Date Type Department Care Team (Late Contact Info) Description 11/09/2023 Refill [facility] [address] [place], [place] [phone] Robert Luis MD [address] [place] [address] [phone] Refill Social History Tobacco Use Types Packs/Day Years Used Date Smoking Tobacco: Former Smokeless Tobacco: Never Alcohol Use Standard Drinks/Week Comments Yes 0 (1 standard drink = 0.6 oz pur e alcohol) Sex and Gender Information Value Date Recorded Sex Assigned at Not on file Gender Identity Not on file Sexual Orientation Not on file documented as of this encounter Nursing Notes * Yue Meraz RN - 11/09/2023 8:18 AM CDT LV: 10/15/22 [place]: 12/30/23 Renewed medication per medication refill standing order. Requested Prescriptions Signed Prescriptions Disp Refills amLODIPine (NORVASC) 10 MG tablet 90 Tablet 0 Sig: TAKE 1 TABLET (10 MG) BY MOUTH DAILY. Authorizing Provider: ROBERT LUIS Ordering User: YUE MERAZ documented in this encounter Plan of Treatment Upcoming Encounters Date Type Department Care Team (Late Contact Info) Description 12/30/2023 11:45 AM CDT Appointment [facility] [address] [place] [address] Robert Luis MD [facility] [place], [place] [phone] documented as of this encounter Visit Diagnoses Not on filedocumented in this encounter Care Teams Paper Counter Relationship Specialty Start Date End Date Devyn Holden MD PCP - General Family Practice 11/27/21 documented as of this encounter
--- OUTSIDE RECORDS SUMMARY | 2023-11-27 13:03 | XMS_ITS | Encounter Summary ---
Author Organization [facility] Address [address] [place] [address] Care Team Providers Care Head Of Human Resources Name Role Phone Devyn Holden MD Primary Care Provider [phone] Encounter Details Date Type Department Care Team (Late Contact Info) Description 10/19/2023 Notes/Orders [facility] [address] [place] [address] Everardo Luis MD [address] [place] [address] [phone] Social History Tobacco Use Types Packs/Day Years Used Date Smoking Tobacco: Former Smokeless Tobacco: Never Alcohol Use Standard Drinks/Week Comments Yes 0 (1 standard drink = 0.6 oz pur e alcohol) Sex and Gender Information Value Date Recorded Sex Assigned at Not on file Gender Identity Not on file Sexual Orientation Not on file documented as of this encounter Progress Notes * Everardo Luis MD - 10/19/2023 2:11 PM CDT NO SHOW for follow-up documented in this encounter Plan of Treatment Upcoming Encounters Date Type Department Care Team (Late Contact Info) Description 12/30/2023 11:45 AM CDT Appointment [facility] [address] [place] [address] [phone] Everardo Luis MD [address] [place] [address] documented as of this encounter Visit Diagnoses Not on filedocumented in this encounter Care Teams Head Of Human Resources Relationship Specialty Start Date End Date Devyn Holden MD PCP - General Family Practice 11/27/21 documented as of this encounter
--- OUTSIDE RECORDS SUMMARY | 2023-11-27 13:03 | XMS_ITS | Clinical Summary ---
Author Organization [facility] Address [place], [place] [address] Care Team Providers Care Dietary Manager Name Role Phone Devyn Holden MD [...] of Treatment Not on file Care Teams Dietary Manager Relationship Specialty Start Date End Date Devyn Holden MD PCP - General Family Practice 12/14/11
== END 2023-11-25 09:26 | disposition home or self-care (01) ==
LOC: NFLDREF 11-27 12:58
PROVIDERS: PCP Family Medicine; Referring Provider Family Medicine; Visit Provider Family Medicine
DX: I10 Essential (primary) hypertension (principal); K52.9 Noninfective gastroenteritis and colitis, unspecified; R10.9 Unspecified abdominal pain; E78.5 Hyperlipidemia, unspecified; M81.0 Age-related osteoporosis without current pathological fracture; Z13.9 Encounter for screening, unspecified
CPT/HCPCS: 80053; 80061; 82306; 82607; 84443

== ENCOUNTER 2024-01-28 12:43 | Outpatient (CLI) | payer MEDICARE, SELFPAY ==
--- OUTSIDE RECORDS SUMMARY | 2024-01-28 12:47 | XMS_ITS | Clinical Summary ---
Author Organization [facility] Address [address] [place] [address]. [place] [address] Care Team Providers Care Healthcare Interpreter Name Role Phone Devyn Holden MD Primary Care Provider [phone] Zulay Santizo MD Unavailable Allergies Active Allergy [...] mg by mouth daily. Active Rizatriptan Benzoate (MAXALT-FACILITIES COORDINATOR PO)Indications:Migrai ne Take 10 mg by mouth. [...] 1945 HEPATITIS C SCREENING 1965 LIPID 1987 FALL RISK ASSESSMENT 2012 MEDICARE ANNUAL WELLNESS VISIT 2012 GLUCOSE 10/03/2013 10/03/2010, 03/0 11/2009, 02/11/2009, Additional history exists RSV VACCINE (1 - 1-dose 75+ series) 2022 PHQ-2 (once per calendar year) 2023 COVID-19 Vaccine ( season) 2023 02/13/2023, 01/28/2022, 11/03/2021, Additional history exists INFLUENZA VACCINE (#1) 2023 , 01/28/2022, 01/03/2021, Additional history exists LUNG CANCER [...] Procedure Name Priority Date/Time Associated Diagnosis Comments [place] BEHAVIORAL & QUALITATIVE ANALYSIS VOICE AND RESONANCE Routine 11/04/2023 7:49 AM CDT Oropharyngeal dysphagia Dysphonia BASIC METABOLIC PANEL Routine 10/03/2010 11:20 AM CDT from Last 3 Months or Most Recently Relevant to Health Maintenance Results * Basic metabolic panel (10/03/2010 11:20 AM CDT) Sodium 142 133 - 144 mmol/L [facility] Potassium 4.3 3.4 - 5.3 mmol/L [facility] Chloride 105 94 - 109 mmol/L [facility] Carbon Dioxide 30 20 - 32 mmol/L [facility] Anion Gap 8 6 - 17 mmol/L [facility] Glucose 89 60 - 99 mg/dL [facility] Urea Nitrogen 15 7 - 30 mg/dL [facility] Creatinine 0.76 0.52 - 1.04 mg/dL [facility] GFR Estimate 77 >60 mL/min/1.7 m2 [facility] GFR Estimate If Black >90 >60 mL/min/1.7 m2 [facility] Calcium 9.1 8.5 - 10.4 mg/dL [facility] 10/03/2010 11:2 0 AM CDT 10/03/2010 11:30 AM CDT Jamir Garcia MD LAB - BLOOD ORDERA BLES [facility] from Last 3 Months or Most Recently Relevant to Health Maintenance Care Teams Healthcare Interpreter Relationship Specialty Start Date End Date Devyn Holden MD [facility] [address] [place] [address] PCP - General Family Practice 09/23/12 Zulay Santizo MD [address] [address] Assigned Surgical Provider 11/03/23
--- OUTSIDE RECORDS SUMMARY | 2024-01-28 12:47 | XMS_ITS | Encounter Summary ---
Author Organization [facility] Address [address] [place] [address] Care Team Providers Care Collection Systems Administrator Name Role Phone Devyn Holden MD Primary Care Provider [phone] Reason for Visit * Reason Onset Date Comments Previsit 10/22/2023 Encounter Details Date Type Department Care Team (Late st Contact Info) Description 10/22/2023 PRE VISIT [facility] [address] [place] [address] Zulay Santizo MD [address] [place] [address] [phone] Previsit Social History Tobacco Use Types Packs/Day [...] VISIT INFORMATION: Date: 10/22/23 Time: 10:30am Location: [facility] REFERRAL INFORMATION: Referring provider: Referring providers clinic: Reason for visit/diagnosis Hospital follow up, 10/21 at 10:30 AM. Spot is on hold RECORDS REQUESTED FROM: Clinic name Comments Records Status Imaging Status [facility] 10/10/23- Hospital Visit CE [facility] imaging 10/11/23- CT CHEST 10/10/23- CT CHEST + CT HEAD + CT NECK + XR CHEST [facility] 10/14/23- PENDING PACS [place] 11/30/22- CT HEAD + DX CHEST + CT SPINE + CT LUMBAR SPINE + CT CHEST + CT HEAD + CT CERVI SPINECe 10/14/23 Pending PACS October 14, 2023 3:31 PM - Faxed a request to [facility] [place] to push Image to [employer] PACS- Cecilia October 19, 2023 9:38 AM - Received image in pacs and attached it to patient- Cecilia documented in this encounter Plan of Treatment Not on file documented as of this encounter Visit Diagnoses Not on filedocumented in this encounter Care Teams Collection Systems Administrator Relationship Specialty Start Date End Date Devyn Holden MD [facility] [address] [place] [address] PCP - General Family Practice 09/23/12 documented as of this encounter
--- OUTSIDE RECORDS SUMMARY | 2024-01-28 12:47 | XMS_ITS | Clinical Summary ---
Author Organization [facility] Address [address] [place] [address] Phone Care Team Providers Care Supervisor Real Estate Office Name Role Phone Devyn Holden MD Primary Care Provider [phone] Gayla Murillo HOUSEKEEPER [employer]AN[employer] Unavailable [phone] Source Comments [facility] [employer] is fully rolled out on [employer]. Last update 09/15/08.[facility] Allergies Active Allergy Reactions Criticality Noted Date [...] Problems Problem Noted Date Diagnosed Date Pneumomediastinum ([facility]) 10/11/2023 Blunt trauma of neck, initial encounter 10/11/19 Blunt trauma of neck, subsequent encounter 10/10 Encounters Date Type Department Care Team Description 10/29/2023 12:37 PM CDT - 10/29/2023 11:59 PM CDT Hospital [facility] [address] [address] Francheska Sequeira, Martin Torres MD Wicktor, Lisa A, HOUSEKEEPER CLEANING COOKING [facility] Discharge Disposition: Discharged to home or self care 10/29/2023 Travel from Last 3 Months Social History [...] CDT Blunt trauma of neck, subsequent encounter from Last 3 Months Results * XR [...] aspiration. Comparison: Modified barium swallow dated 10/16/2023. [place] protocol was followed. Findings: A modified barium [...] aspiration. Comparison: Modified barium swallow dated 10/16/2023. [place] protocol was followed. Findings: A modified barium [...] Ivan Marin Martin Moura MD RAD [place] from Last 3 Months Advance Directives For more information, please contact: [phone] * Full Code (Latest Code Status on File) Date Activated Date Inactivated Comments 10/11/2023 3:55 AM 10/19/2023 9:39 PM Question Answer Comments Does the Patient have prefer ences regarding life sustaining measures (these options only apply when the patient has a pulse): No Discussed Code Status With Whom? Not discussed Care Teams Supervisor Real Estate Office Relationship Specialty Start Date End Date Devyn Holden MD [facility] [address] [place] [address] PCP - General Family Medicine 10/19/23 Gayla Murillo, HOUSEKEEPER CLEANING COOKING [facility] [address] [place] [address] Speech Pathologist Speech Pathology 10/19/23
--- OUTSIDE RECORDS SUMMARY | 2024-01-28 12:47 | XMS_ITS | Encounter Summary ---
Author Organization [facility] Address [address] [place] [address] Care Team Providers Care Food Safety Auditor Name Role Phone Devyn Holden MD Primary Care Provider [phone] Zulay Santizo MD Unavailable Encounter Details Date Type Department Care Team (Late st Contact Info) Description 10/22/2023 10:30 AM CDT Office Visit [facility] [address] [place] [address] Zulay Santizo MD [address] [place] [address] Dysphonia (Primary Dx) Social History Tobacco [...] or concerns after your appointment, please call [phone]. Press option #1 for scheduling related needs. Press option#3 for Nurse advice. 2. Plan is to return to clinic as needed Lucy Mayer LPN [phone] [facility] documented in this encounter Progress Notes * Zulay Santizo MD - 10/22/2023 10:30 AM CDT Images from the original note were not included. [facility] Patient: Zulma Courtney : 1945 Age/Gender: 78 year old female Date of Service: 10/22/2023 Rendering Provider: Zulay Santizo MD Referring Provider PCP: Devyn Holden Referring Physician: Mariajose Camarillo MD [address] [place] [address] Reason for Consultation Laryngeal trauma History HISTORY [...] HISTORY: Past Surgical History: Procedure Laterality Date LEVEL VIAL SEALER SURGERY HC CLOSED [place] POST HIP ARTHRPLAST [...] times daily., Disp: , Rfl: Rizatriptan Benzoate (MAXALT-ELECTRICAL SYSTEMS DESIGNER PO), Take 10 mg by mouth. Indications: [...] Resource Strain: Low Risk (10/11/2023) Received from [facility] Overall Financial Resource Strain (CARDIA) Difficulty of Paying Living Expenses: Not hard at all Food Insecurity: No Food Insecurity (10/11/2023) Received from [facility] Hunger Vital Sign Worried About Running Out of Food in the Last Year: Never true Ran Out of Food in the Last Year: Never true Transportation Needs: No Transportation Needs (10/11/2023) Received from [facility] PRAPARE - Transportation Lack of Transportation (Medical): No Lack of Transportation (Non-Medical): No Physical Activity: Inactive (04/07/2022) Received from [facility] Exercise Vital Sign Days of Exercise per Week: 0 days Minutes of Exercise per Session: 0 min Stress: No Stress Concern Present (04/07/2022) Received from [facility] [employer] - Occupational Stress Questionnaire Feeling of Stress : Not at all Social Connections: Socially Integrated (04/07/2022) Received from [facility] Social Connection and Isolation Panel [NHANES] Frequency of Communication with Friends and Family: More than three times a week Frequency of Social Gatherings with Friends and Family: Once a week Attends Confucianism Services: More than 4 times per year Active Member of Clubs or Organizations: Yes Attends Club or Organization Meetings: 1 to 4 times per year Marital Status: Interpersonal Safety: Not At Risk (10/11/2023) Received from [facility] Humiliation, Afraid, Rape, and Kick questionnaire Fear of Current or Ex-Partner: No Emotionally Abused: No Physically Abused: No Sexually Abused: No Housing Stability: Low Risk (10/11/2023) Received from [facility] Housing Stability What is your housing situation [...] limits and noncontributory. Procedures Flexible laryngoscopy (CPT 34762) Pre-procedure diagnosis: dysphonia Post-procedure diagnosis: same as [...] Clinical Data I personally reviewed: Notes: [facility] 10/10/23 Zulma Courtney is a 78 [...] prophylaxis. Patient was recommended toremain NPO by [employer] as she had aspiration across all diet consistencies due to pharyngeal edema. Discussed with patient that the edema is expected to resolve in following weeks, so elected to leave NG tube in rather than pursue PEG. She was discharged to home with tube feeds. She was referred to [facility] Laryngology clinic for ongoing management. Radiology: [...] did not reveal an obvious perforation - [employer] eval revealed - she had aspiration across all diet consistencies due to pharyngeal edema. - Ngtube dependent - no further swelling Plan - recommend swallow testing as scheduled with [facility] RETURN VISIT: as needed Thank you for the kind referral and for allowing me to share in the care of Ms. Courtney. If you have any questions, please do not hesitate to contact me. Zulay Santizo MD Enterprise Applications Manager Laryngology [facility] Department of Otolaryngology - Head and Neck Surgery [facility] [address] [place] [address] Appointment line: [phone] [email or web address] * Zulay Santizo MD - 10/22/2023 10:30 AM CDT Physician Attestation I agree with the information in this note. Zulay White documented in this encounter Plan of Treatment Not on file documented as of this encounter Procedures Procedure Name Priority Date/Time Associated Diagnosis Comments AR LARYNGOSCOPY FLEX FIBEROPTIC, DIAGNOSTIC Routine 10/22/2023 11:06 AM CDT Dysphonia IMAGESTREAM RECORDING ORDER Routine 10/22/2023 10:20 AM CDT Dysphonia documented in this encounter Results * IMAGESTREAM RECORDING ORDER (10/22/2023 10:20 AM CDT) 10/22/2023 10:2 0 AM CDT Zulay Santizo MD OTHER Performing Organization Address City/State/ZIP Co mi Phone Number RADIOLOGY RESULTS documented in this encounter Visit Diagnoses Diagnosis Dysphonia- Primary documented in this encounter Care Teams Food Safety Auditor Relationship Specialty Start Date End Date Devyn Holden MD [facility] [address] [place] [address] PCP - General Family Practice 09/23/12 Zulay Santizo MD [address] [place] [address] Assigned Surgical Provider 11/03/23 documented as of this encounter
--- OUTSIDE RECORDS SUMMARY | 2024-01-28 12:47 | XMS_ITS | Encounter Summary ---
Author Organization [facility] Address [address] [place] [address] Care Team Providers Care Extractor Tender Raw Stock Name Role Phone Unavailable Primary Care Provider Unavailabl e Encounter Details Date Type Department Care Team (Late st Contact Info) Description 08/24/2010 5:36 PM CDT [facility] in [address] [phone] Rashad Bustos MD [address] [place] [address] [phone] Social History Tobacco Use Types Packs/Day Years [...] for her recurrent dislocations. Jacoby Gonzales M.D. [facility]/dmd cc: documented in this encounter Plan of Treatment Not on file documented as of this encounter Visit Diagnoses Not on filedocumented in this encounter
--- OUTSIDE RECORDS SUMMARY | 2024-01-28 12:47 | XMS_ITS | Encounter Summary ---
Author Organization [facility] Address [address] [place] [address] Care Team Providers Care Ocular Care Technician Name Role Phone Devyn Holden MD Primary Care Provider [phone] Encounter Details Date Type Department Care Team [...] on filedocumented in this encounter Care Teams Ocular Care Technician Relationship Specialty Start Date End Date Devyn Holden MD [facility] [address] [place] [address] PCP - General Family Practice 09/23/12 documented as of this encounter
--- OUTSIDE RECORDS SUMMARY | 2024-01-28 12:47 | XMS_ITS | Referral Summary ---
Author Organization [facility] Address [address] [place] [address]. [place] [address] Care Team Providers Care Seam Checker Name Role Phone Devyn Holden MD Primary Care Provider [phone] Zulay Santizo MD Unavailable Allergies Active Allergy [...] mg by mouth daily. Active Rizatriptan Benzoate (MAXALT-HADOOP SOFTWARE ENGINEER PO)Indications:Migrai ne Take 10 mg by mouth. [...] Name Priority Date/Time Associated Diagnosis Comments [place] BEHAVIORAL & QUALITATIVE ANALYSIS VOICE AND RESONANCE Routine 11/04/2023 7:49 AM CDT Oropharyngeal dysphagia Dysphonia BASIC METABOLIC PANEL Routine 10/03/2010 11:20 AM CDT from Last 3 Months or Most Recently Relevant to Health Maintenance Results * Basic metabolic panel (10/03/2010 11:20 AM CDT) Sodium 142 133 - 144 mmol/L [facility] Potassium 4.3 3.4 - 5.3 mmol/L [facility] Chloride 105 94 - 109 mmol/L [facility] Carbon Dioxide 30 20 - 32 mmol/L [facility] Anion Gap 8 6 - 17 mmol/L [facility] Glucose 89 60 - 99 mg/dL [facility] Urea Nitrogen 15 7 - 30 mg/dL [facility] Creatinine 0.76 0.52 - 1.04 mg/dL [facility] GFR Estimate 77 >60 mL/min/1.7 m2 [facility] GFR Estimate If Black >90 >60 mL/min/1.7 m2 [facility] Calcium 9.1 8.5 - 10.4 mg/dL [facility] 10/03/2010 11:2 0 AM CDT 10/03/2010 11:30 AM CDT Jamir Garcia MD LAB - BLOOD ZULAY RINCON [facility] from Last 3 Months or Most Recently Relevant to Health Maintenance Care Teams Seam Checker Relationship Specialty Start Date End Date Devyn Holden MD [facility] [address] [place] [address] PCP - General Family Practice 09/23/12 Zulay Santizo MD [address] [place] [address] Assigned Surgical Provider 11/03/23
--- OUTSIDE RECORDS SUMMARY | 2024-01-28 12:47 | XMS_ITS | Encounter Summary ---
Author Organization [place] Address [address] [place] [address] Care Team Providers Care Cloth Trimmer Hand Name Role Phone Devyn Holden MD Primary Care Provider [phone] Zulay Santizo MD Unavailable Encounter Details Date Type Department Care Team (Late st Contact Info) Description 10/22/2023 10:30 AM CDT Office Visit [facility] [address] 4th [place] [address] Provider, Ent Dysphonia Die Operator Dysphonia (Primary Dx); Oropharyngeal dysphagia Social History [...] this encounter Progress Notes * Elisha Day, AVID EDITOR - 10/22/2023 10:30 AM CDT [facility] Clinical Voice and Upper Airway Evaluation Report Patient's Name: Zulma Courtney Date of Evaluation: 10/22/2023 Providing AVID EDITOR: Elisha Day MS [facility]-AVID EDITOR Seen in Conjunction With: Zulay Santizo MD Referring Provider and Facility: Hospital Follow-Up Insurance Coverage: [facility] Medicare (Certification Dates: 10/22/23) Evaluation Location: [facility] Others in Attendance for the Evaluation: her and [id number] Time of Evaluation: 10:22 - 11:08 AM [...] Patient was recommended to remain NPO by AVID EDITOR as she had aspiration across all diet consistencies due to pharyngeal edema. Discussed with patient that the edema is expected to resolve in following weeks, so elected to leave NGtube in rather than pursue PEG. She was discharged to home with tube feeds. She was referred to [facility] Laryngology clinic for ongoing management. Outpatient ENT [...] not completed by the patient Perceptual Analysis (95507): Evaluation of Voice / Speech / Non-Communicative [...] of the epiglottis. Therefore, repeat MBS at [facility] has been recommended to ensure swallow safety prior to returning to PO diet. No additional voice AVID EDITOR care is warranted at this time given her recovery and lack of other laryngeal complaints. Zulma is in agreement with this plan of care. Additionally, this patient appears not to be a candidate for participation in our current research studies within the department. A warm introduction was not provided. Billed Procedures: Perceptual voice assessment 64222 Assessment and treatment time: 46 minutes Chart review, interpretation of testing, documentation preparation, etc: 22 minutes Thank you for allowing me to participate in this patient's care, Elisha Day MS CCC-AVID EDITOR Speech-Language Pathologist [facility] Department of Otolaryngology - Head and Neck Surgery [facility] Physicians [email or web address] Direct: [phone] [phone] *This note may have been completed using [id number] dictation software, so errors may exist. Please contact me for clarification if needed* * Elisha Day SLP - 10/22/2023 10:30 AM CDT Images from the original note were not included. Outpatient Speech Language Therapy Evaluation - MEDICARE CERTIFICATION PLAN OF TREATMENT FOR OUTPATIENT REHABILITATION Patient's Last Name, First Name, M.I. Date of : 1945 Zulma Courtney Provider's Name Elisha Day M.S., CCC-AVID EDITOR Onset Date: 10/22/23 Start of Care Date: [...] Procedure Name Priority Date/Time Associated Diagnosis Comments HI BEHAVIORAL & QUALITATIVE ANALYSIS VOICE AND RESONANCE Routine 11/04/2023 7:49 AM CDT Oropharyngeal dysphagia Dysphonia documented in this encounter Visit Diagnoses Diagnosis Dysphonia- Primary Oropharyngeal dysphagia Dysphagia, oropharyngeal phase documented in this encounter Care Teams Cloth Trimmer Hand Relationship Specialty Start Date End Date Devyn Hodlen MD [facility] [address] [place] [address] PCP - General Family Practice 09/23/12 Zulay Santizo MD [address] [place] [address] Assigned Surgical Provider 11/03/23 documented as of this encounter
--- OUTSIDE RECORDS SUMMARY | 2024-01-28 12:48 | XMS_ITS | Encounter Summary ---
Author Organization [facility] Address [address] [place] [address] Care Team Providers Care Pulling Unit Operator Name Role Phone Devyn Holden MD Primary Care Provider [phone] Reason for Visit * Reason Comments Refill Encounter Details Date Type Department Care Team (Late Contact Info) Description 11/09/2023 Refill Rheumatology at [facility] [address] [place] [address] [id number] Robert Luis MD [facility] [place], [place] [address] Refill Social History Tobacco Use Types Packs/Day [...] Care Team (Late st Contact Info) Description 02/10/2024 9:45 AM CDT Appointment Rheumatology at [facility] [place] [address] [place] [address] [place] [address] Robert Luis MD [address] [place] [address] documented as of this encounter Visit Diagnoses Not on filedocumented in this encounter Care Teams Pulling Unit Operator Relationship Specialty Start Date End Date Devyn Holden MD PCP - General Family Practice 11/27/21 documented as of this encounter
--- OUTSIDE RECORDS SUMMARY | 2024-01-28 12:48 | XMS_ITS | Encounter Summary ---
Author Organization [facility] Address [address] [place] [address] Phone Care Team Providers Care Quarry Extraction Worker Name Role Phone Devyn Holden MD Primary Care Provider [phone] Gayla Murillo SCHOOL CHILDCARE ATTENDANT CCC Unavailable [phone] Reason for Visit * Reason Onset Date Comments Prior Authorization For Medications 10/21/2023 Amlodipine Encounter Details Date Type Department Care Team (Late st Contact Info) Description 10/21/2023 Pharmacy Prior Authorization [facility] P1 Pharmacy [address] [facility] [address] [place], [place] [address] Martin Moura MD [facility] [address] [place] [address] Social History Tobacco Use Types Packs/Day [...] mg/ml suspension compound has been submitted to [employer] ([facility] Medicare) insurance via phone. We will update once we have a decision back. Thanks! An[facility] Microsoft Office Instructor - Pharmacy Prior Authorization Team Information noted [...] feeding tube daily Approved by insurance plan: [employer] ([employer] Medicare) Diagnosis: Hypertension, Raynaud's Other medications [...] Approved Ingredients Only. Thanks! [facility] [employer] Office Instructor-Prior Authorization Information noted is based upon details [...] on filedocumented in this encounter Care Teams Quarry Extraction Worker Relationship Specialty Start Date End Date Devyn Holden MD [facility] CNTR [address] [place] [address] PCP - General Family Medicine 10/19/23 Gayla Murillo, SCHOOL CHILDCARE ATTENDANT [facility] [address] [place] [address] Speech Pathologist Speech Pathology 10/19/23 documented as of this encounter
--- OUTSIDE RECORDS SUMMARY | 2024-01-28 12:48 | XMS_ITS | Continuity of Care Document ---
Author Organization [facility] Address [address] [address] [place] [address] Phone Care Team Providers Care Maintainer Sewer And Waterworks Name Role Phone Aaron BLANCO MD, Mil Unavailable Unavailable Advance Directives Directive Yes / No Effective Date File Name No Information Encounters Encounter Description Practice Location Reason(s) For Visit Diagnoses Date Provider Providers Copied on Encounter [facility], [address], [place], [place], [id number], [place] tel:[phone] No Information 0 Aaron Jaeger. [address], [place], [address], [place]. tel:[phone] Referring Provider: Mil Dempsey, [address] [place], [place], [facility]. tel:[phone] Family History Family Member Type Diagnosis Age At Onset No Information Payers Payer name Insurance type Covered green party ID Authoriza tion(s) [employer] CI [id number] Social History Type Description Quantity Date Captured [...]
--- OUTSIDE RECORDS SUMMARY | 2024-01-28 12:48 | XMS_ITS | Encounter Summary ---
Author Organization [facility] Address [address] [place] [address] Phone Care Team Providers Care Hosiery Mender Name Role Phone Devyn Holden MD Primary Care Provider [phone] Gayla Murillo SCHOOL SECRETARY CCC Unavailable [phone] Reason for Visit * Consult/Test/Treat (Urgent) - Closed Specialty Diagnoses / Procedures Referred By Contac t Referred To Contact Speech Pathology / NEUROLOGY Diagnoses Blunt trauma of neck, subsequent encounter Martin Moura MD [address] [address] Referral ID Status Reason Start Date Expiration Date Visits Re quested Visits Authorized [id number] Closed 10/17/2023 10/17/2024 1 1 Encounter Details Date Type Department Care Team (Latest Contact Info) Description 10/29/2023 12:37 PM CDT - 10/29/2023 11:59 PM CDT Hospital Encounter [facility] [address] [address] Francheska Sequeira PA-C [address] [place] [address] [address] [place], [place] [address] Martin Moura MD [address] [address] Gayla Murillo, SCHOOL SECRETARY [address] [address] Discharge Disposition: Discharged to home or self care Social History Tobacco Use Types Packs/Day Years [...] this encounter Procedure Notes * Gayla Murillo, SCHOOL SECRETARY CCC - 10/29/2023 1:00 PM CDT SPEECH-LANGUAGE PATHOLOGY MODIFIED BARIUM SWALLOW STUDY SCHOOL SECRETARY Recommendations Diet Recommendation: Current Diet : IDDSI 7 - Easy to chew Current Liquid: Thin liquids Medication Administration: Medications with thin liquid Aspiration Precautions: Small, single bites and sips;Swallow 2x per bite/sip;Alternate solids and liquids;Encourage periodic throat clear to clear airway Oral Hygiene: [place] teeth 2x/day Positioning Techniques: Seat fully upright [...] of the piriform sinuses is clear. Per SCHOOL SECRETARY: Previous MBSS on 10/16/23 revealed Marked prevertebral [...] aspiration. Comparison: Modified barium swallow dated 10/16/2023. [place] protocol was followed. Findings: A modified barium [...] aspiration. Comparison: Modified barium swallow dated 10/16/2023. [place] protocol was followed. Findings: A modified barium [...] resident/fellow. Reading Radiologist: Vasu Green Reading Resident: Tomas Ivan Martin Moura MD RAD FLUORO documented in [...] Oral documented in this encounter Care Teams Hosiery Mender Relationship Specialty Start Date End Date Devyn Holden MD [facility] CNTR [address] [place] [address] PCP - General Family Medicine 10/19/23 Gayla Murillo, SCHOOL SECRETARY [facility] [address] [place] [address] Speech Pathologist Speech Pathology 10/19/23 documented as of this encounter
--- OUTSIDE RECORDS SUMMARY | 2024-01-28 12:48 | XMS_ITS | Encounter Summary ---
Author Organization [facility] Address [address] [place] [address] Phone Care Team Providers Care Tribal Judge Name Role Phone Devyn Holden MD Primary Care Provider [phone] Gayla Murillo TOP ICER CCC Unavailable [phone] Encounter Details Date Type Department Care Team [...] on filedocumented in this encounter Care Teams Tribal Judge Relationship Specialty Start Date End Date Devyn Holden MD [facility] CN[facility] [address] [facility] [place] [address] PCP - General Family Medicine 10/19/23 Gayla Murillo, TOP ICER [facility] [address] [place] [address] Speech Pathologist Speech Pathology 10/19/23 documented as of this encounter
--- OUTSIDE RECORDS SUMMARY | 2024-01-28 12:48 | XMS_ITS | Encounter Summary ---
Author Organization [facility] Address [address] [place] [address] Phone Care Team Providers Care Railroad Accountant Name Role Phone Devyn Holden MD Primary Care Provider [phone] Gayla Murillo KNUCKLER CCC Unavailable [phone] Encounter Details Date Type Department Care Team [...] on filedocumented in this encounter Care Teams Railroad Accountant Relationship Specialty Start Date End Date Devyn Holden MD [facility] [address] [facility] [place] [address] PCP - General Family Medicine 10/19/23 Gayla Murillo, [facility] [address] [place] [address] Speech Pathologist Speech Pathology 10/19/23 documented as of this encounter
--- OUTSIDE RECORDS SUMMARY | 2024-01-28 12:48 | XMS_ITS | Continuity of Care Document ---
Author Organization [facility] Address [address] [place] [address] Phone Care Team Providers Care Outdoor Adventure Instructor Name Role Phone Jono BLANCO, PhD, Chucho [...] C, [address], [place], [place], [id number], [place] tel:[phone] [facility] No Information Jono Rankin. [facility], [address], [place], [address], [place]. tel: [phone] Office/Outpat ient Visit,[facility] C, [address], [place], [place], [id number], [place] tel:[phone] [facility] Pain in leg Jono Rankin. [facility], [address], [place], [address], [place]. tel:[phone] Referring Provider: JOSE Weir [address], [address]. tel:[phone] Family History Family Member Type Diagnosis Age At Onset No Information Payers Payer name Insurance type Covered alliance party ID Sulma pearson(s) [facility] [id number] Medicare [facility] [id number] 1 Social History Type Description Quantity Date [...]
--- OUTSIDE RECORDS SUMMARY | 2024-01-28 12:48 | XMS_ITS | Encounter Summary ---
Author Organization [facility] Address [address], [place] [address] Care Team Providers Care Washer Engineer Helper Name Role Phone Devyn Holden MD Primary Care Provider [phone] Reason for Visit * Reason Comments Refill hydroxychloroquine ( PLAQUENIL) 200 MG tablet [Pharmacy Med Name: HYDROXYCHLOROQUINE 200 MG TAB] Encounter Details Date Type Department Care Team (Late st Contact Info) Description 01/07/2024 Refill Rheumatology at [facility] [address] [id number] Robert Luis MD [address] [place] [address] Refill (hydroxychloroquine (PLAQUENIL) 200 MG tablet [Pharmacy Med Name: HYDROXYCHLOROQUINE 200 MG TAB]) Social History Tobacco Use Types Packs/Day Years Used Date Smoking Tobacco: Former Smokeless Tobacco: Never Alcohol Use Standard Drinks/Week Comments Yes 0 (1 standard drink = 0.6 oz pur e alcohol) Sex and Gender Information Value Date Recorded Sex Assigned at Not on file Gender Identity Not on file Sexual Orientation Not on file documented as of this encounter Nursing Notes * Robert Luis MD - 01/07/2024 12:35 PM CDT I refilled it but obviously she does need to get her eye exam done. We can discuss at her follow-up, it maybe time to consider reducing to 1 tab daily at her next visit. * Yue Meraz RN - 01/07/2024 7:06 AM CDT Eye exam [facility] 04/28/22. There are some macular abnormalities, but sounds like they are comfortable following her. Patient is overdue for f/u and an eye exam. Called patient. She states she was in the hospital whenshe missed her last visit. 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 States she has had a more recent eye exam than Apr 2022. Asked that she call them and ask them to fax us her most recent eye exam/testing results. Unable to fill per refill protocol, routing to provider. * Leola Colin Xrwcomm - 01/07/2024 12:28 AM CDT hydroxychloroquine (PLAQUENIL) 200 MG tablet [Pharmacy Med Name: HYDROXYCHLOROQUINE 200 MG TAB] Hydroxychloroquine -> An office visit is overdue (performed 15 months ago, required every 12 months). -> Ensure the patient had an Eye Exam in the last 6 months to a year. -> Refill x 3 months (courtesy refill. overdue for an office visit) -> Calculate the quantity and number of refills manually. Last qualifying visit: 10/15/2022 (in Rheumatology) Next scheduled visit: None Last ordered by ROBERT LUIS (449 days ago) QTY: 180, Refills: 3, Sig: take 1 tablet (200 mg) by mouth two times a day. indications: cutaneous lupus (unchanged) [employer] Embedded Refills, Reference: [id number], 01/07/2024 12:28:41 AM CDT, Pool: RHEUM PN REFILL [[id number]] ([id number]) documented in this encounter Plan of Treatment Upcoming Encounters Date Type Department Care Team (Late st Contact Info) Description 02/10/2024 9:45 AM CDT Appointment Rheumatology at [facility] [address] [id number] Robert Luis MD [facility] [place] [address] documented as of this encounter Visit Diagnoses Not on filedocumented in this encounter Care Teams Washer Engineer Helper Relationship Specialty Start Date End Date Devyn Holden MD PCP - General Family Practice 11/27/21 documented as of this encounter
--- OUTSIDE RECORDS SUMMARY | 2024-01-28 12:48 | XMS_ITS | Referral Summary ---
Author Organization [facility] Address [address] [place] [address] Phone Care Team Providers Care Room Service Food Service Attendant Name Role Phone Devyn Holden MD Primary Care Provider [phone] Gayla Murillo CCC Unavailable [phone] Source Comments Copier How To Systems is fully rolled out on [employer] Last update 09/15/08.Copier How To Encounters Date Type Department Care Team Description 10/29/2023 Travel 10/29/2023 12:37 PM CDT - 10/29/2023 11:59 PM CDT Hospital Encounter [facility] [address] [address] Francheska Sequeira, Martin Torres MD Wicktor, Lisa A, REHAB NURSING TECH CCC Discharge Disposition: Discharged to home or self care from Last 3 Months Allergies Active Allergy [...] Problems Problem Noted Date Diagnosed Date Pneumomediastinum ([facility]) 10/11/2023 Blunt trauma of neck, initial encounter [...] aspiration. Comparison: Modified barium swallow dated 10/16/2023. [place] protocol was followed. Findings: A modified barium [...] aspiration. Comparison: Modified barium swallow dated 10/16/2023. [place] protocol was followed. Findings: A modified barium [...] Advance Directives For more information, please contact: [phone] * Full Code (Latest Code Status on File) Date Activated Date Inactivated Comments 10/11/2023 3:55 AM 10/19/2023 9:39 PM Question Answer Comments Does the Patient have prefer ences regarding life sustaining measures (these options only apply when the patient has a pulse): No Discussed Code Status With Whom? Not discussed Care Teams Room Service Food Service Attendant Relationship Specialty Start Date End Date Devyn Holden MD [facility] CNTR [address] [place] [address] PCP - General Family Medicine 10/19/23 Gayla Murillo, REHAB NURSING TECH [facility] [address] [place] [address] Speech Pathologist Speech Pathology 10/19/23
--- OUTSIDE RECORDS SUMMARY | 2024-01-28 12:48 | XMS_ITS | Continuity of Care Document ---
Author Organization [facility] Address [address] [address] [place] [address] Phone Care Team Providers Care Customer Service Supervisor Name Role Phone Saulo Carranza MD Unavailable [...] Diagnoses Date Provider Providers Copied on Encounter [facility], [address] [address], [place], [id number], [place] tel:[phone] Evita [facility] Colon Cancer ScreeningDiverticul osis Of Colon [address] [facility], [place], [id number] , [place]. tel:[phone] Family History Family Member Type Diagnosis Age At Onset No Information Payers Payer name Insurance type Covered alliance party ID Authoriza tijosy(s) Medicare [facility] [id number] [facility] [id number] Social History Type Description Quantity Date Captured [...]
--- OUTSIDE RECORDS SUMMARY | 2024-01-28 12:48 | XMS_ITS | Encounter Summary ---
Author Organization [facility] Address [address] [place] [address] Phone Care Team Providers Care Assistant Plant Controller Name Role Phone Devyn Holden MD Primary Care Provider [phone] Gayla Murillo ANALYTICS ANALYST CCC Unavailable [phone] Encounter Details Date Type Department Care Team [...] on filedocumented in this encounter Care Teams Assistant Plant Controller Relationship Specialty Start Date End Date Devyn Holden MD [facility] CNTR [address] [place] [address] PCP - General Family Medicine 10/19/23 Gayla Murillo, ANALYTICS ANALYST [facility] [address] [place] [address] Speech Pathologist Speech Pathology 10/19/23 documented as of this encounter
--- OUTSIDE RECORDS SUMMARY | 2024-01-28 12:48 | XMS_ITS | Encounter Summary ---
Author Organization [facility] Address [address] [place] [address] Phone Care Team Providers Care Wood Carver Name Role Phone Devyn Holden MD Primary Care Provider [phone] Gayla Murillo TWO NEEDLE MACHINE OPERATOR CCC Unavailable [phone] Encounter Details Date Type Department Care Team [...] on filedocumented in this encounter Care Teams Wood Carver Relationship Specialty Start Date End Date Devyn Holden MD [facility] CNTR [address] [place] [address] PCP - General Family Medicine 10/19/23 Gayla Murillo, TWO NEEDLE MACHINE OPERATOR [facility] [address] [place] [address] Speech Pathologist Speech Pathology 10/19/23 documented as of this encounter
--- OUTSIDE RECORDS SUMMARY | 2024-01-28 12:48 | XMS_ITS | Encounter Summary ---
Author Organization [facility] Address [address] [place] [address] Phone Care Team Providers Care Electronic Device Repairer Name Role Phone Devyn Holden MD Primary Care Provider [phone] Gayla Murillo VENTILATING EXPERT CCC Unavailable [phone] Encounter Details Date Type Department Care Team [...] on filedocumented in this encounter Care Teams Electronic Device Repairer Relationship Specialty Start Date End Date Devyn Holden MD [facility] CNTR [address] [place] [address] PCP - General Family Medicine 10/19/23 Gayla Murillo, VENTILATING EXPERT [facility] [address] [place] [address] Speech Pathologist Speech Pathology 10/19/23 documented as of this encounter
--- OUTSIDE RECORDS SUMMARY | 2024-01-28 12:48 | XMS_ITS | Clinical Summary ---
Author Organization [facility] Address [address], [place] [address] Care Team Providers Care Supervisor Cigar Making Machine Name Role Phone Devyn Holden MD Primary Care Provider [phone] Source Comments You are receiving this document as you are listed as the primary care provider,follow-up provider, or the patient has been referred to you for consultation.This is in compliance with the Medicare and[facility] EHR Incentive Program,which states Providers who transition their patient to another setting of careor provider of care or refers their patient to another provider of care shouldprovide summary care record for each transition of care or referral. [facility] Allergies Active Allergy Reactions Criticality Noted Date Comments Sulfa Antibiotics 04/16/2017 Medications Medication Sig Dispensed Refills Start Date End Date Status aspirin 81 MG tablet Take 1 Tablet (81 mg) by mouth daily. Active rizatriptan (MAXALT-RAILROAD COOK) 10 MG disintegrating tablet Take 1 Tablet [...] 07/16/2020 Active amLODIPine (NORVASC) 10 MG tablet TAKE 1 TABLET (10 MG) BY MOUTH DAILY. 90 Tablet 11/09/2023 Active hydroxychloroquine (PLAQUENIL) 200 MG tabletIndications:c utaneous lupus TAKE 1 TABLET (200 MG) BY MOUTH TWO TIMES A DAY. INDICATIONS: CUTANEOUS LUPUS 180 Tablet 01/07/2024 Active hydroxychloroquine (PLAQUENIL) 200 MG tabletIndications:c utaneous lupus Take 1 Tablet (200 mg) by mouth two times a day. 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 04/27/2017 History of total knee arthroplasty, right 2017 Raynaud's disease without gangrene 04/27/2017 Connective tissue disease 04/27/2017 Migraine 04/27/2017 Primary osteoarthritis of both hands 04/27/2017 Right hand pain 04/27/2017 Long-term use of hydroxychloroquine 04/27/2017 Encounters Date Type Department Care Team Description 01/07/2024 Refill Rheumatology at [facility] [address] [address] Everardo Luis MD Refill (hydroxychloroquine (PLAQUENIL) 200 MG tablet [Pharmacy Med Name: HYDROXYCHLOROQUINE 200 MG TAB]) 11/09/2023 Refill Rheumatology at [address] [address] Everardo Luis MD Refill from Last 3 Months Immunizations Name Administration Dates Next Due Flu Vac (3+ yrs) 01/26/2013,01/01/2012, 1 Fluzone Qiv Multidose Vial 0 .25 (6-35 Mos) 02/06/2015 Influenza (Flucelvax), Prese rv Free QIV 03/01/2017 Influenza IIV4 (Quadrivalent ) 0.5mL (62893) 12/31/2016 Influenza IIV4 (Quadrivalent ) Fluad, 65+ Yrs 01/03/2021,01/28/2020 Influenza aIIV3 65+ Years (Fluad) 01/20/2019 Influenza, Unspecified Formulation 01/11/2018,,02/06/2015 Moderna Monovalent 12+ [...] 02/10/2024 9:45 AM CDT Appointment Rheumatology at [facility] [address] [id number] Everardo Luis MD [address] [place], [place] [id number] Health Maintenance Due Date Last Done Comments Medicare Annual Wellness Visit 1945 RSV (1 - 1-dose 75+ series) 2022 COVID-19 Vaccine ( season) 2023 01/28/2022, 11/03/2021, 02/13/2021, Additional history exists Influenza [...] on patient's age to complete this topic Infant RSV Aged Out No longer eligi ble based on patient's age to complete this topic MCV4 Aged Out No longer eligi ble based on patient's age to complete this topic Procedures Procedure Name Priority Date/Time Associated Diagnosis Comments HEPATITIS C ANTIBODY, WITH REFLEX Routine 04/27/2017 11:44 AM RN CLINICAL APPEALS Connective tissue disease (HRC) from Last 3 Months or Most Recently Relevant to Health Maintenance Results * [facility]AB - Hepatitis C Virus Sunita with Reflex In-House (04/27/2017 11:44 AM RN CLINICAL APPEALS) Hepatitis C Antibody Nonreactive Nonreactive PN SOFT 04/27/2017 11:4 4 AM RN CLINICAL APPEALS 04/27/2017 4:22 PM RN CLINICAL APPEALS Narrative PN SOFT - 04/27/2017 5:49 PM RN CLINICAL APPEALS Performed at [facility], [address] [place] [address] CLIA number [id number] Everardo Luis MD LAB_1 PN SOFT [address] [place] [address] from Last 3 Months or Most Recently Relevant to Health Maintenance Care Teams Supervisor Cigar Making Machine Relationship Specialty Start Date End Date Devyn Holden MD PCP - General Family Practice 11/27/21
--- OUTSIDE RECORDS SUMMARY | 2024-01-28 12:48 | XMS_ITS | Continuity of Care Document ---
Author Organization [facility] Address [address] [place] [address] Phone Care Team Providers Care Convertible Sofa Bedspring Tester Name Role Phone Sondra Madden MD Unavailable [...] route every day 81 MG - Active Maxalt-TELEPHONE SEX WORKER 10 mg Tab, Rapid Dissolve use as [...] Est [facility] , [address], [place], [address], [place] tel:[phone] [facility] , SLE (chief complaint)Os teoarthritis (chief complaint)Dr beauchamp monitoring (chief complaint) Oth organ or system involv in systemic lupus erythematosu sPrimary generalized (osteo)arthr itisOther custodial (current) drug therapy Maryanne Amaro. [facility] [address], [place], [address], [place]. tel:[phone] Referring Provider: Sondra Beaver, [facility] [address], [place], [address]. tel:[phone] [facility] , [address], [place], [address], [place] tel:[phone] [facility] , No Information 6 Maryanne Amaro. [facility] [address], [place], [address], [place]. tel:[phone] Office/Outpa tient Visit, Est [facility] , [address], [place], [address], [place] tel:[phone] [facility] , SLE (chief complaint)Os teoarthritis (chief complaint)Dr beauchamp monitoring (chief complaint) Systemic lupus erythematosu sOsteoarthri tis, GeneralizedT herapeutic Drug Monitoring 5 Maryanne Amaro. [facility] [address], [place], [address], [place]. tel:[phone] Referring Provider: Sondra Beaver, [facility] [address], [place], [address]. tel:[phone] Office/Outpa tient Visit, Est [facility] , [address], [place], [address], [place] tel:[phone] [facility] , SLE (chief complaint)Os teoarthritis (chief complaint)Dr beauchamp monitoring (chief complaint)Tr igger finger (chief complaint) Systemic lupus erythematosu sOsteoarthri tis, GeneralizedT herapeutic Drug Monitoring 0 4 Maryanne Amaro. [facility] [address], [place], [address], [place]. tel:[phone] Referring Provider: Sondra Beaver, [facility] [address], [place], [address]. tel:[phone] Office/Outpa tient Visit, Est [facility] , [address], [place], [address], [place] tel:[phone] [facility] , SLE (chief complaint)Os teoarthritis (chief complaint)Mo nitor chronic high risk medications (chief complaint) Systemic lupus erythematosu sTrigger finger (acquired)Sy novial cyst of popliteal spaceTherape utic Drug Monitoring 3 Maryanne Amaro. [facility] [address], [place], [address], [place]. tel:[phone] Referring Provider: Sondra Beaver, [facility] [address], [place], [address]. tel:[phone] Family History Family Member Type Diagnosis Age At Onset No Information Payers Payer name Insurance type Covered democrat ID Authoriza tion(s) [facility] Medicare Advantage/Plat inum Blue BL [id number] Social History Type Description Quantity Date Captured Comments Alcohol Use Details wine 1 glass daily Caffeine Use Details coffee 4 cups per day Tobacco Use Status Ex-cigarette smoker Smoking Status Former smoker Zulma is and lives with her in [place]. 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 She quit smoking many years ago. She [...] Oth organ or system involv in sy [facility] lupus erythematosus assessment Primary generalized (osteo)arthr itis brenda Maya is tolerating her medications well. She denies any side effects from either the hydroxychloroquine or amlodipine. She will continue to be watchful for anything new that she feels may be medication related. She is up to date with eye exams to monitor for toxicity from the hydroxychloroquine. assessment Other termination clerk (current) drug t herapy brenda Maya's lupus [...]
--- OUTSIDE RECORDS SUMMARY | 2024-01-28 12:48 | XMS_ITS | Encounter Summary ---
Author Organization [facility] Address [address] [place] [address] Phone Care Team Providers Care Lay Up Operator Name Role Phone Devyn Holden MD Primary Care Provider [phone] Gayla Murillo PTA CCC Unavailable [phone] Encounter Details Date Type Department Care Team (Late st Contact Info) Description 10/12/2023 Orders Only [facility] [place] [facility] Radiology Department PEGGY [address] [facility] [address] Provider, [place] [address] Referral of patient (Primary Dx) Social History [...] FILMS (10/10/2023 8:17 PM CDT) Santana Miranda Dpil-Ohxkeo-Bqykubzgj - 10/12/2023 6:28 AM CDT Outside Film Only Outside Provider RAD OUTSIDE FILMS * XR LOWER EXTREMITY OUTSIDE FILMS (10/10/2023 7:38 PM CDT) Santana Miranda Ajlw-Zkjqgi-Pxfdsaqyq - 10/12/2023 6:28 AM CDT Outside Film Only Outside Provider RAD OUTSIDE FILMS * XR LOWER EXTREMITY OUTSIDE FILMS (10/10/2023 7:33 PM CDT) Santana Miranda Ehkg-Wcgkhl-Plebudmcg - 10/12/2023 6:27 AM CDT Outside Film Only Outside Provider RAD OUTSIDE FILMS * CT SPINE OUTSIDE FILMS (10/10/2023 7:10 PM CDT) Santana Miranda Tzst-Pnqkvq-Abmjifipq - 10/12/2023 6:29 AM CDT Outside Film Only Outside Provider RAD OUTSIDE FILMS * CT SPINE OUTSIDE FILMS (10/10/2023 7:10 PM CDT) Narrative User, Dmxb-Tvwjoi-Zrnmusmnc - 10/12/2023 6:29 AM CDT Outside Film Only Outside Provider RAD OUTSIDE FILMS documented in this encounter Visit Diagnoses Diagnosis Referral of patient- Primary Referral of patient without examination or treatment documented in this encounter Care Teams Lay Up Operator Relationship Specialty Start Date End Date Devyn Holden MD [facility] [address] [place], [place] [id number] PCP - General Family Medicine 10/19/23 Gayla Murillo, PTA [facility] [address] [place] [address] Speech Pathologist Speech Pathology 10/19/23 documented as of this encounter
--- OUTSIDE RECORDS SUMMARY | 2024-01-28 12:48 | XMS_ITS | Encounter Summary ---
Author Organization [facility] Address [address] [place] [address] Phone Care Team Providers Care Electrical Unit Rebuilder Name Role Phone Devyn Holden MD Primary Care Provider [phone] Gayla Murillo PROFESSOR OF PSYCHOLOGY CCC Unavailable [phone] Encounter Details Date Type Department Care Team [...] on filedocumented in this encounter Care Teams Electrical Unit Rebuilder Relationship Specialty Start Date End Date Devyn Holden MD [facility] [address] [place] [address] PCP - General Family Medicine 10/19/23 Gayla Murillo, PROFESSOR OF PSYCHOLOGY [facility] [address] [place] [address] Speech Pathologist Speech Pathology 10/19/23 documented as of this encounter
--- NOTE | 2024-01-28 13:00 | CRLHL7_ITS ---
For Patients: As a result of the Century Cures Act, medical imaging exams and procedure reports are released immediately into your electronic medical record. You may view this report before your referring provider. If you have questions, please contact your health care provider. DXA BONE MINERAL DENSITY STUDY Reason for exam: Screening. Current height (in): 63. Weight (lb): 125. Menopause age: 33. Ethnicity: White. 1. Have you had a previous hip or vertebral fracture? No. 2. Have you had any fractures during your adult life which did not result from significant trauma (e.g., auto accident)? No. 3. Did either of your parents have a hip fracture? No. 4. Do you smoke? No. 5. Have you ever taken Glucocorticoids? No. 6. Do you have rheumatoid arthritis? No. 7. Do you have secondary osteoporosis? No. 8. Do you drink 3 or more alcoholic drinks per day? No. 9. Are you being treated for osteoporosis? No. 10. Have you ever taken any of the following medications: Actonel, Evista, Fosamax, Miacalcin, Reclast, Boniva, Forteo, HRT (i.e. estrogen/hormone therapy), Protelos, Prolia, Vitamin D, Calcium, other ??? please specify. ANSWER: Yes, HRT (i.e. estrogen/hormone therapy). 11. Do you have any of the following medical conditions: Anorexia or bulimia, asthma or emphysema, end stage renal disease, hyperparathyroidism, any seizure disorders, cancer, inflammatory bowel diseases, hysterectomy, other ??? please specify. ANSWER: Yes, other ??? lupus. 12. What was your maximum height (inches)? 62. 13. Do you perform weight bearing exercise regularly? No. 14. Do you regularly consume dairy products? No. 15. Do you drink caffeinated beverages? No. 16. At what age did your period start? 15. 17. Are you premenopausal? No. 18. How many full term pregnancies have you had? 3. 19. Have you ever missed your period for more than 6 months in a row (not including or menopause)? Not provided. TECHNIQUE: Bone mineral density study was performed using the [employer]. FINDINGS: The results of the study expressed as bone mineral density (BMD) are as follows: Lumbar spine L1 to L4(L3): BMD: 1.301 g/cm2. T-score: 2.4. Z-score: 4.9. Radius Right 33%: BMD: 0.577 g/cm2. T-score: -2.0. Z-score: 0.8. IMPRESSION: Normal bone density. ENRRIQUE GÓMEZ M.D. [email or web address] bM/Dictated by: Enrrique Gómez MD @ 02/01/2024 8:13:00 AM (Electronically Signed)
== END 2024-01-28 12:44 | disposition home or self-care (01) ==
LOC: RAD 12:44
PROVIDERS: PCP Family Medicine; Visit Provider Family Medicine
DX: Z13.820 Encounter for screening for osteoporosis (principal); Z78.0 Asymptomatic menopausal state
CPT/HCPCS: 77080